=== PATIENT | male | born 1985 | race African-American/Black ===

== ENCOUNTER 2017-03-18 19:53 | Emergency (ER) | payer OTHER ==
[2017-03-18 20:21] VITALS: BP 185/118; PULSE 77; RESP 16; TEMP 98.8
--- NOTE | 2017-03-18 20:38 | ED ---
Skin/Abscess/FB HPI - General Chief complaint: Skin/Abscess/Foreign Body Stated complaint: skin problems/shoulder Time Seen by Provider: 03/18/17 20:24 Source: patient, RN notes reviewed Mode of arrival: ambulatory Limitations: no limitations - History of Present Illness Initial comments: 31-year-old male presents emergency Department chief complaint rash. Patient has this rash on and off for a while. Patient states he usually uses Selsun Blue. Patient states that it does go away when he uses it. Patient also states that he does not have blood pressure medication which normally takes blood pressure medication. Patient states she's been off for last few months. Denies any chest pain, shortness breath, headache, dizziness. - Related Data Home Medications Medication Instructions Recorded Confirmed Gabapentin [Neurontin] 100 mg PO BID 04/25/16 03/18/17 Previous Rx's Medication Instructions Recorded amLODIPine [Norvasc] 5 mg PO DAILY #14 tab 03/18/17 Allergies Allergy/AdvReac Type Severity Reaction Status Date / Time carbamazepine [From Tegretol] Allergy Unknown Verified 03/18/17 20:21 Review of Systems ROS Statement: Those systems with pertinent positive or pertinent negative responses have been documented in the HPI. ROS Other: All systems not noted in ROS Statement are negative. Past Medical History Past Medical History: Hypertension Additional Past Medical History / Comment(s): occipital neuralgia History of Any Multi-Drug Resistant Organisms: None Reported, MRSA Date of last positivie culture/infection: 2012 MDRO Source:: left leg Past Surgical History: No Surgical Hx Reported Additional Past Surgical History / Comment(s): polyps removed during colonoscopy Past Psychological History: Anxiety, PTSD Smoking Status: Never smoker Past Alcohol Use History: None Reported Past Drug Use History: Marijuana General Exam Limitations: no limitations General appearance: alert, in no apparent distress Respiratory exam: Present: normal lung sounds bilaterally. Absent: respiratory distress, wheezes, rales, rhonchi, stridor Cardiovascular Exam: Present: regular rate, normal rhythm, normal heart sounds. Absent: systolic murmur, diastolic murmur, rubs, gallop, clicks Neurological exam: Present: alert, oriented X3, CN II-XII intact Skin exam: Present: rash (Rash noted up on the neck, upper back chest region that is patch-like, discoloration) Course Vital Signs 03/18/17 20:16 Temperature 98.8 F Pulse Rate 77 Respiratory 16 Rate Blood Pressure 185/118 O2 Sat by Pulse 98 Oximetry Medical Decision Making - Medical Decision Making 31-year-old male presented for rash. Patient has tinea versicolor patient was started on Selsun Blue. Patient will be also prescribed Norvasc for his blood pressure. Disposition Clinical Impression: Tinea versicolor, Uncontrolled hypertension Disposition: HOME SELF-CARE Condition: Stable Instructions: Tinea Versicolor (ED) Additional Instructions: Follow-up with primary care physician as directed.Please return to the Emergency Department if symptoms worsen or any other concerns. Prescriptions: amLODIPine [Norvasc] 5 mg PO DAILY #14 tab Referrals: Shiv Sims MD [Primary Care Provider] - 1-2 days Time of Disposition: 20:37
== END 2017-03-18 20:44 | disposition home or self-care (01) ==
LOC: EC 19:53
DX: B36.0 Pityriasis versicolor (principal); I10 Essential (primary) hypertension; Z79.899 Other long term (current) drug therapy; Z88.8 Allergy status to other drugs, medicaments and biological substances; Z86.69 Personal history of other diseases of the nervous system and sense organs
CPT/HCPCS: 99282

== ENCOUNTER 2017-05-21 15:26 | Emergency (ER) | payer OTHER ==
[2017-05-21 15:39] VITALS: TEMP 98.7
[2017-05-21] MEDS ORDERED: METOCLOPRAMIDE 5 MG/ML 2 ML VIAL IVP STA (15:54)
[2017-05-21] MEDS ORDERED: diphenhydrAMINE 50 MG/ML 1 ML VIAL IVP STA (15:54)
[2017-05-21] MEDS ORDERED: GABAPENTIN 100 MG CAP PO STA (15:54)
[2017-05-21] MEDS ORDERED: DEXAMETHASONE SOD PHOSPHATE 10 MG/ML 1 ML VIAL IV STA (15:54)
[2017-05-21] MEDS ORDERED: KETOROLAC 30 MG/ML 1 ML VIAL IVP STA (15:54)
[2017-05-21] MEDS ORDERED: amLODIPine 5 MG TAB PO STA (15:54)
--- NOTE | 2017-05-21 16:01 | ED ---
General Adult HPI - General Chief complaint: Seizure Stated complaint: Seizure Time Seen by Provider: 05/21/17 15:42 Source: patient Mode of arrival: ambulatory Limitations: no limitations - History of Present Illness Initial comments: Patient is a 31-year-old male who presents with a chief complaint of headache, the report of seizure earlier today. Patient states that he walked to the emergency department today. Patient states he has a seizure disorder along with a history of migraine headaches. Patient states that earlier today he became shaky. Patient states that he remembers the entire event. Patient admits that he has been out of his medications specifically Norvasc, and Neurontin for 1 week's time. Patient is currently transitioning between doctors. He has not been able to get his prescriptions refilled. Patient states that his headache feels her normal migraine. He describes it as right- sided, sensitive to light and sound, with ringing in his right ear. Patient has no other complaints at this time. MD Complaint: Headache Onset/Timin -: days(s) Location: head Radiation: non-radiation Quality: aching Consistency: constant Improves with: none Worsens with: none Associated Symptoms: seizure Treatments Prior to Arrival: none - Related Data Home Medications Medication Instructions Recorded Confirmed Gabapentin [Neurontin] 100 mg PO TID 04/25/16 05/21/17 diphenhydrAMINE HCL [Benadryl] 25 mg PO DAILY PRN 05/21/17 05/21/17 Previous Rx's Medication Instructions Recorded amLODIPine [Norvasc] 5 mg PO DAILY #14 tab 03/18/17 Gabapentin [Neurontin] 100 mg PO TID #45 capsule 05/21/17 amLODIPine BESYLATE [Norvasc] 5 mg PO DAILY #15 tablet 05/21/17 Allergies Allergy/AdvReac Type Severity Reaction Status Date / Time caffeine AdvReac MAKES Verified 05/21/17 15:50 SEIZURES MORE SEVERE carbamazepine [From Tegretol] AdvReac MAKES Verified 05/21/17 15:50 SEIZURES MORE SEVERE Review of Systems ROS Statement: Those systems with pertinent positive or pertinent negative responses have been documented in the HPI. ROS Other: All systems not noted in ROS Statement are negative. Constitutional: Denies: fever, chills Eyes: Denies: vision change ENT: Denies: ear pain, throat pain Respiratory: Denies: cough Cardiovascular: Denies: chest pain Endocrine: Denies: fatigue Gastrointestinal: Denies: abdominal pain, nausea, vomiting Genitourinary: Denies: dysuria Musculoskeletal: Denies: back pain Skin: Denies: rash Neurological: Reports: headache Past Medical History Past Medical History: Hypertension, Seizure Disorder Additional Past Medical History / Comment(s): occipital neuralgia History of Any Multi-Drug Resistant Organisms: None Reported, MRSA Date of last positivie culture/infection: 2012 MDRO Source:: left leg Past Surgical History: No Surgical Hx Reported Additional Past Surgical History / Comment(s): polyps removed during colonoscopy Past Psychological History: Anxiety, PTSD Smoking Status: Never smoker Past Alcohol Use History: None Reported Past Drug Use History: Marijuana General Exam Limitations: no limitations General appearance: alert, in no apparent distress Head exam: Present: atraumatic, normocephalic Eye exam: Present: normal appearance, PERRL ENT exam: Present: normal exam, normal oropharynx, mucous membranes moist Neck exam: Present: normal inspection. Absent: tenderness Respiratory exam: Present: normal lung sounds bilaterally. Absent: respiratory distress Cardiovascular Exam: Present: regular rate, normal rhythm, normal heart sounds GI/Abdominal exam: Present: soft. Absent: distended, tenderness Rectal exam: Present: deferred Extremities exam: Present: normal inspection Back exam: Present: normal inspection Neurological exam: Present: alert, oriented X3, normal gait Psychiatric exam: Present: normal affect, normal mood Skin exam: Present: warm, dry, intact Course Vital Signs 05/21/17 15:33 Temperature 98.7 F Pulse Rate 93 Respiratory 15 Rate Blood Pressure 184/114 O2 Sat by Pulse 97 Oximetry Medical Decision Making - Medical Decision Making Patient presents with a chief complaint of migraine headache, and seizure. History and physical exam is suspect for actual seizures patient remembers the entire event, and states that he only had shaking. Patient states he is out of his Neurontin, and Norvasc. On initial evaluation, patient's hypertensive otherwise vital signs are stable. Neurologically there is no focal deficit. Patient is able to ambulate well without assistance. Patient was given his home dose of Neurontin, and amlodipine. Patient will be given headache cocktail and IV fluids. 5:26 PM Patient remained stable in the emergency department. There is no seizure activity noted. Patient states that his headache is better. At this point, patient is stable for discharge. He was written prescriptions for his regular dose Norvasc, and gabapentin. Patient can follow up with primary care and is already scheduled appointment next week. Disposition Clinical Impression: Migraine Disposition: HOME SELF-CARE Condition: Good Prescriptions: amLODIPine BESYLATE [Norvasc] 5 mg PO DAILY #15 tablet Gabapentin [Neurontin] 100 mg PO TID #45 capsule Referrals: Torsten Lyle DO [Primary Care Provider] - 1-2 days
[2017-05-21 17:58] VITALS: BP 160/105; PULSE 60; RESP 16
== END 2017-05-21 18:24 | disposition home or self-care (01) ==
LOC: EC 15:26
DX: G43.909 Migraine, unspecified, not intractable, without status migrainosus (principal); G40.909 Epilepsy, unspecified, not intractable, without status epilepticus; F41.9 Anxiety disorder, unspecified; Z86.14 Personal history of Methicillin resistant Staphylococcus aureus infection; Z79.899 Other long term (current) drug therapy; Z88.8 Allergy status to other drugs, medicaments and biological substances
CPT/HCPCS: 99283; 96374; 96375 ×3; J1200; J1100; J2765; J1885

== ENCOUNTER 2017-06-01 17:09 | Emergency (ER) | payer OTHER ==
[2017-06-01] MEDS ORDERED: SODIUM CHLORIDE 0.9% 1,000 ML IV STA (19:31)
--- NOTE | 2017-06-01 20:08 | ED ---
General Adult HPI - General Source: patient, RN notes reviewed, old records reviewed Mode of arrival: wheelchair <Nallely Sampson - Last Filed: 06/01/17 20:05> <Ryne Del Valle - Last Filed: 06/01/17 20:19> - General Chief complaint: Seizure Stated complaint: seizure Time Seen by Provider: 06/01/17 19:24 - History of Present Illness Initial comments: Physical 31-year-old male presenting to the emergency Department chief complaint of headache and questionable seizure-like activity. Patient reports that he has been taking his medications as prescribed. Patient reports that he had no tonic clonic episodes. He reports that he had no loss of consciousness or falls or hitting his head. He states that he noted that his blood pressure was a little bit elevated he still his blood pressure medicines earlier today. Patient states that he has had no fever or chills, chest pain, shortness of breath or any other symptoms. Patient states that his headache is a 6 out of 10. Patient states that he did walk here to the emergency department. ( Nallely Sampson) - Related Data Previous Rx's Medication Instructions Recorded Gabapentin [Neurontin] 100 mg PO TID #45 capsule 05/21/17 amLODIPine BESYLATE [Norvasc] 5 mg PO DAILY #15 tablet 05/21/17 Allergies Allergy/AdvReac Type Severity Reaction Status Date / Time caffeine AdvReac MAKES Verified 06/01/17 17:39 SEIZURES MORE SEVERE carbamazepine [From Tegretol] AdvReac MAKES Verified 06/01/17 17:39 SEIZURES MORE SEVERE Review of Systems ROS Other: All systems not noted in ROS Statement are negative. <Nallely Sampson - Last Filed: 06/01/17 20:05> ROS Other: All systems not noted in ROS Statement are negative. <Ryne Del Valle - Last Filed: 06/01/17 20:19> ROS Statement: Those systems with pertinent positive or pertinent negative responses have been documented in the HPI. Past Medical History Past Medical History: Hypertension, Seizure Disorder Additional Past Medical History / Comment(s): occipital neuralgia History of Any Multi-Drug Resistant Organisms: None Reported, MRSA Date of last positivie culture/infection: 2012 MDRO Source:: left leg Past Surgical History: No Surgical Hx Reported Additional Past Surgical History / Comment(s): polyps removed during colonoscopy Past Psychological History: Anxiety, PTSD Smoking Status: Never smoker Past Alcohol Use History: None Reported Past Drug Use History: Marijuana <Nallely Sampson - Last Filed: 06/01/17 20:05> General Exam General appearance: alert, in no apparent distress Head exam: Present: atraumatic, normocephalic, normal inspection Eye exam: Present: normal appearance, PERRL, EOMI. Absent: scleral icterus, conjunctival injection, periorbital swelling ENT exam: Present: normal exam, mucous membranes moist Neck exam: Present: normal inspection. Absent: tenderness, meningismus, lymphadenopathy Respiratory exam: Present: normal lung sounds bilaterally. Absent: respiratory distress, wheezes, rales, rhonchi, stridor Cardiovascular Exam: Present: regular rate, normal rhythm, normal heart sounds. Absent: systolic murmur, diastolic murmur, rubs, gallop, clicks GI/Abdominal exam: Present: soft, normal bowel sounds. Absent: distended, tenderness, guarding, rebound, rigid Extremities exam: Present: normal inspection, full ROM, normal capillary refill. Absent: tenderness, pedal edema, joint swelling, calf tenderness Back exam: Present: normal inspection, full ROM Neurological exam: Present: alert, oriented X3, CN II-XII intact Psychiatric exam: Present: normal affect, normal mood Skin exam: Present: warm, dry, intact, normal color. Absent: rash <Nallely Sampson - Last Filed: 06/01/17 20:05> <Ryne Del Valle - Last Filed: 06/01/17 20:19> - General Exam Comments Initial Comments: Well-appearing 31-year-old male. Patient is on appear to be in any acute distress. (Nallely Sampson) Medical Decision Making <Nallely Sampson - Last Filed: 06/01/17 20:05> <Ryne Del Valle - Last Filed: 06/01/17 20:19> - Medical Decision Making 31-year-old male chief complaint of concern of seizure-like activity headache. Patient has no history of tonic episodes or loss of consciousness or any falls or head injury. Patient does not appear postictal at this time. He did walk here to the emergency department. Patient was given IV fluids, Reglan, Toradol , Benadryl and Norflex for her headache. At 8:07 PM patient's case will be transferred to Dr. Del Valle. (Nallely Sampson) 8:17 PM I assumed care of this patient from Nallely Sampson. On examination of the patient, he states that he does not want the same medications that he was given last time when he was seen by myself and states he does not want to go to sleep today. I saw this patient about 2 weeks ago with an identical presentation. Patient states he would like to just try Toradol, and Tylenol. On evaluation, the patient has no neurological deficits. He is speaking in full sentences. Patient states he still has medications which were filled on last ER presentation. Patient still has a follow-up appointment with neurology. Patient will be given Toradol, Tylenol. Patient is stable for discharge at this time. (Ryne Del Valle) Disposition <Nallely Sampson - Last Filed: 06/01/17 20:05> <Ryne Del Valle - Last Filed: 06/01/17 20:19> Clinical Impression: Headache, Episode of shaking Disposition: HOME SELF-CARE Condition: Good Instructions: Recurrent Seizures in Adults (ED), Migraine Headache (ED) Referrals: Torsten Lyle DO [Primary Care Provider] - 1-2 days
[2017-06-01] MEDS: diphenhydrAMINE 50 MG/ML 1 ML VIAL IVP STA ×2 (20:19→20:23)
[2017-06-01] MEDS: KETOROLAC 30 MG/ML 1 ML VIAL IVP STA ×2 (20:19→20:23)
[2017-06-01] MEDS: ORPHENADRINE 30 MG/ML 2 ML VIAL IVP STA ×2 (20:19→20:24)
[2017-06-01] MEDS: METOCLOPRAMIDE 5 MG/ML 2 ML VIAL IVP STA ×2 (20:19→20:24)
[2017-06-01] MEDS ORDERED: ACETAMINOPHEN TAB 325 MG TAB PO STA (20:20)
[2017-06-01] MEDS ORDERED: KETOROLAC 60 MG/2 ML VIAL IM STA (20:20)
[2017-06-01 20:42] VITALS: BP 101/56; PULSE 68; RESP 16; TEMP 97.9
== END 2017-06-01 20:41 | disposition home or self-care (01) ==
LOC: EC 17:09
DX: R51 Headache (principal); R25.1 Tremor, unspecified; I10 Essential (primary) hypertension; Z88.8 Allergy status to other drugs, medicaments and biological substances; Z53.20 Procedure and treatment not carried out because of patient's decision for unspecified reasons; Z79.899 Other long term (current) drug therapy
CPT/HCPCS: 99284; 96372; J1885

== ENCOUNTER 2017-06-08 19:44 | Emergency (ER) | payer OTHER ==
[2017-06-08] MEDS ORDERED: ORPHENADRINE 30 MG/ML 2 ML VIAL IM STA (20:14)
[2017-06-08] MEDS ORDERED: KETOROLAC 60 MG/2 ML VIAL IM STA (20:14)
--- NOTE | 2017-06-08 20:19 | ED ---
General Adult HPI - General Chief complaint: Back Pain/Injury Stated complaint: back pain Time Seen by Provider: 06/08/17 19:45 Source: patient, EMS, RN notes reviewed Mode of arrival: EMS Limitations: no limitations - History of Present Illness Initial comments: This is a 31-year-old male who presents emergency Department stating he has some lower back pain. Patient states he had 2 seizures in the last week and since then his lower back is been a little bit strange especially with movement. Patient states she has no weakness or numbness. Patient states he has no urinary incontinence or urinary retention. Patient states his back hurts when he tries to bend or twist. Patient denies any blunt trauma or injury to the lower back. Patient states she has not taken anything for pain not even Motrin or Tylenol. - Related Data Previous Rx's Medication Instructions Recorded Gabapentin [Neurontin] 100 mg PO TID #45 capsule 05/21/17 amLODIPine BESYLATE [Norvasc] 5 mg PO DAILY #15 tablet 05/21/17 Cyclobenzaprine [Flexeril] 10 mg PO TID #20 tab 06/08/17 Ibuprofen [Motrin] 600 mg PO Q6HR PRN #20 tab 06/08/17 Allergies Allergy/AdvReac Type Severity Reaction Status Date / Time caffeine AdvReac MAKES Verified 06/08/17 20:03 SEIZURES MORE SEVERE carbamazepine [From Tegretol] AdvReac MAKES Verified 06/08/17 20:03 SEIZURES MORE SEVERE Review of Systems ROS Statement: Those systems with pertinent positive or pertinent negative responses have been documented in the HPI. ROS Other: All systems not noted in ROS Statement are negative. Past Medical History Past Medical History: Hypertension, Seizure Disorder Additional Past Medical History / Comment(s): occipital neuralgia History of Any Multi-Drug Resistant Organisms: None Reported, MRSA Date of last positivie culture/infection: 2012 MDRO Source:: left leg Past Surgical History: No Surgical Hx Reported Additional Past Surgical History / Comment(s): polyps removed during colonoscopy Past Psychological History: Anxiety, PTSD Smoking Status: Never smoker Past Alcohol Use History: None Reported Past Drug Use History: Marijuana General Exam - General Exam Comments Initial Comments: GENERAL: Patient is well-developed and well-nourished. Patient is nontoxic and well- hydrated and is in mild distress. ENT: Neck is soft and supple. Moist mucous membranes. Neck has full range of motion without eliciting any pain. EYES: The sclera were anicteric and conjunctiva were pink and moist. Extraocular movements were intact and pupils were equal round and reactive to light. Eyelids were unremarkable. SKIN: Skin is clear with no lesions or rashes and otherwise unremarkable. NEUROLOGIC: Patient is alert and oriented x3. Cranial nerves II through XII are grossly intact. Motor and sensory are also intact. Normal speech, volume and content. Symmetrical smile. MUSCULOSKELETAL: Normal extremities with adequate strength and full range of motion. No lower extremity swelling or edema. No calf tenderness. Straight leg test is negative bilaterally PSYCHIATRIC: Normal psychiatric evaluation. Limitations: no limitations Course Vital Signs 06/08/17 19:45 Temperature 98.9 F Pulse Rate 72 Respiratory 18 Rate Blood Pressure 160/103 O2 Sat by Pulse 98 Oximetry Disposition Clinical Impression: Strain of lumbar region Disposition: HOME SELF-CARE Condition: Good Instructions: Acute Low Back Pain (ED) Prescriptions: Cyclobenzaprine [Flexeril] 10 mg PO TID #20 tab Ibuprofen [Motrin] 600 mg PO Q6HR PRN #20 tab PRN Reason: For pain Referrals: Shiv Sims MD [Primary Care Provider] - 1-2 days Time of Disposition: 20:18
[2017-06-08 20:41] VITALS: BP 150/83; PULSE 78; RESP 17; TEMP 96.9
== END 2017-06-08 20:41 | disposition home or self-care (01) ==
LOC: EC 19:44
DX: S39.012A Strain of muscle, fascia and tendon of lower back, initial encounter (principal); X58.XXXA Exposure to other specified factors, initial encounter; M54.81 Occipital neuralgia; G40.909 Epilepsy, unspecified, not intractable, without status epilepticus; I10 Essential (primary) hypertension; Z86.14 Personal history of Methicillin resistant Staphylococcus aureus infection; Z79.899 Other long term (current) drug therapy; Z91.09 Other allergy status, other than to drugs and biological substances; Z88.8 Allergy status to other drugs, medicaments and biological substances
CPT/HCPCS: 96372; 99284; J2360; J1885

== ENCOUNTER 2017-11-23 08:49 | Emergency (ER) | payer OTHER ==
[2017-11-23 08:56] VITALS: TEMP 98.4
[2017-11-23] MEDS ORDERED: amLODIPine 5 MG TAB PO STA (09:02)
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
[2017-11-23] MEDS ORDERED: cloNIDine HCL 0.2 MG TAB PO STA (09:52)
[2017-11-23] MEDS ORDERED: cloNIDine HCL 0.1 MG TAB PO STA (10:38)
[2017-11-23 10:39] VITALS: RESP 18
[2017-11-23 11:11] VITALS: BP 135/92; PULSE 74
== END 2017-11-23 11:35 | disposition home or self-care (01) ==
LOC: EC 08:49
DX: S09.90XA Unspecified injury of head, initial encounter (principal); I10 Essential (primary) hypertension; Z79.899 Other long term (current) drug therapy; Z88.8 Allergy status to other drugs, medicaments and biological substances; Z91.048 Other nonmedicinal substance allergy status; Z86.14 Personal history of Methicillin resistant Staphylococcus aureus infection; Y04.0XXA Assault by unarmed brawl or fight, initial encounter
CPT/HCPCS: 70450; 99284

== ENCOUNTER 2018-08-18 20:17 | Emergency (ER) | payer OTHER ==
[2018-08-18] MEDS ORDERED: diphenhydrAMINE 50 MG/ML 1 ML VIAL IVP STA (22:35)
[2018-08-18] MEDS ORDERED: KETOROLAC 30 MG/ML 1 ML VIAL IVP STA (22:35)
[2018-08-18] MEDS ORDERED: SODIUM CHLORIDE 0.9% 1,000 ML IV ONE (22:35)
[2018-08-18] MEDS ORDERED: cloNIDine HCL 0.1 MG TAB PO STA (22:35)
[2018-08-18] MEDS ORDERED: METOCLOPRAMIDE 5 MG/ML 2 ML VIAL IVP STA (22:35)
[2018-08-18 22:59] LABS: Basophils % (A) 0 %; Eosinophils # (A) 0.1 k/uL (0-0.7); Eosinophils % (A) 2 %; HGB 15.5 gm/dL (13.0-17.5); Lymphocytes # (A) 2.1 k/uL (1.0-4.8); Lymphocytes % (A) 42 %; MCH 27.4 pg (25.0-35.0); MCHC 33.7 g/dL (31.0-37.0); MCV 81.3 fL (80.0-100.0); Mean Platelet Volume 8.2; Monocytes # (A) 0.4 k/uL (0-1.0); Monocytes % (A) 8 %; Neutrophils # (A) 2.2 k/uL (1.3-7.7); Neutrophils % (A) 46 %; Platelet Count 182 k/uL (150-450); RBC 5.66 m/uL (4.30-5.90); RDW 13.9 % (11.5-15.5); WBC 4.9 k/uL (3.8-10.6)
[2018-08-18 23:14] LABS: ALT 28 U/L (21-72); AST 22 U/L (17-59); Albumin 4.9 g/dL (3.5-5.0); Alkaline Phosphatase 60 U/L (38-126); Anion Gap 10 mmol/L; Blood Urea Nitrogen 14 mg/dL (9-20); Calcium 9.9 mg/dL (8.4-10.2); Carbon Dioxide 23 mmol/L (22-30); Chloride 105 mmol/L (98-107); Glucose 103 mg/dL (74-99); Sodium 138 mmol/L (137-145); Total Protein 8.1 g/dL (6.3-8.2)
--- NOTE | 2018-08-19 00:08 | ED ---
General Adult HPI - General Chief complaint: Headache Stated complaint: high blood pressure, seizure a couple days ago Time Seen by Provider: 08/18/18 22:06 Source: patient, family Mode of arrival: ambulatory Limitations: no limitations - History of Present Illness Initial comments: 33-year-old male patient presents to the emergency department today with chief complaint of elevated blood pressure and posterior headache. Patient does have past medical history significant for hypertension, epilepsy, and occipital neuralgia. Patient states that he does take amlodipine, Imdur, and propranolol for blood pressure. States that he has been having elevated blood pressures and does have an appointment this week with his primary care physician to discuss management of this. Patient states that he developed a headache today in addition to weakness in his ankles and some tingling to the distal tips of his fingers. He denies any blurred or double vision. States that he does have light sensitivity but denies any sound sensitivity. Denies any nausea, vomiting , fever, chills, numbness, or unilateral weakness. Patient denies any recent rash, fever, chills, shortness breath, chest pain, abdominal pain, diarrhea, constipation, back pain, hematuria, dysuria, urinary urgency, urinary frequency , or any other complaints. - Related Data Home Medications Medication Instructions Recorded Confirmed Propranolol HCl 60 mg PO BID 11/23/17 08/18/18 Topiramate [Topamax] 100 mg PO BID 11/23/17 08/18/18 Ibuprofen [Motrin] 600 mg PO Q6H PRN 08/18/18 08/18/18 amLODIPine [Norvasc] 10 mg PO DAILY 08/18/18 08/18/18 Previous Rx's Medication Instructions Recorded Gabapentin [Neurontin] 100 mg PO TID #45 capsule 05/21/17 Allergies Allergy/AdvReac Type Severity Reaction Status Date / Time caffeine AdvReac MAKES Verified 08/18/18 22:28 SEIZURES MORE SEVERE carbamazepine [From Tegretol] AdvReac MAKES Verified 08/18/18 22:28 SEIZURES MORE SEVERE Review of Systems ROS Statement: Those systems with pertinent positive or pertinent negative responses have been documented in the HPI. ROS Other: All systems not noted in ROS Statement are negative. Past Medical History Past Medical History: Hypertension, Seizure Disorder Additional Past Medical History / Comment(s): occipital neuralgia History of Any Multi-Drug Resistant Organisms: None Reported, MRSA Date of last positivie culture/infection: 2012 MDRO Source:: left leg Past Surgical History: No Surgical Hx Reported Additional Past Surgical History / Comment(s): polyps removed during colonoscopy Past Psychological History: Anxiety, Depression, PTSD, Schizophrenia Smoking Status: Never smoker Past Alcohol Use History: Occasional Past Drug Use History: Marijuana General Exam Limitations: no limitations General appearance: alert, in no apparent distress, other (This is a well- developed, well-nourished adult male patient in no acute distress. Vital signs upon presentation are temperature 98.2F, pulse 79, respirations 20, blood pressure 180/127, pulse ox 97% on room air.) Eye exam: Present: normal appearance, PERRL, EOMI. Absent: scleral icterus, conjunctival injection, nystagmus, periorbital swelling ENT exam: Present: normal exam, normal oropharynx, mucous membranes moist Neck exam: Present: normal inspection. Absent: tenderness, meningismus, lymphadenopathy Respiratory exam: Present: normal lung sounds bilaterally. Absent: respiratory distress, wheezes, rales, rhonchi, stridor Cardiovascular Exam: Present: regular rate, normal rhythm, normal heart sounds. Absent: systolic murmur, diastolic murmur, rubs, gallop, clicks GI/Abdominal exam: Present: soft, normal bowel sounds. Absent: distended, tenderness, guarding, rebound, rigid Neurological exam: Present: alert, oriented X3, CN II-XII intact, other ( Strength in all 4 extremities is 5/5.) Psychiatric exam: Present: normal affect, normal mood Skin exam: Present: warm, dry, intact, normal color. Absent: rash Course Vital Signs 08/18/18 08/18/18 08/18/18 21:24 22:30 23:00 Temperature 98.2 F Pulse Rate 79 Respiratory 20 Rate Blood Pressure 180/127 174/141 173/127 O2 Sat by Pulse 97 97 97 Oximetry 08/18/18 08/19/18 08/19/18 23:45 00:30 00:46 Temperature 98.3 F Pulse Rate 70 Respiratory 18 Rate Blood Pressure 133/90 130/83 127/87 O2 Sat by Pulse 98 Oximetry Medical Decision Making - Medical Decision Making 33-year-old male patient with past medical history significant for hypertension , occipital neuralgia, and epilepsy presents to the emergency department today for complaints of headache and elevated blood pressure. Physical examination was relatively unremarkable. Patient is neurologically intact with no focal deficits. Labs reviewed and are unremarkable. Patient was given clonidine here in the emergency department for blood pressure, blood pressure did improve to 130s over 90s. Patient was given medication for headache. Upon reevaluation he states he is feeling better. He will call for a right home. He does have an appointment coming up this week with his primary care physician to discuss management of his blood pressure medications. He is urged to keep this appointment with his doctor. Return parameters were discussed in detail. He verbalizes understanding and agrees with this plan. - Lab Data Result diagrams: 08/18/18 22:34 08/18/18 22:34 Lab Results 08/18/18 08/18/18 Range/Units 22:34 22:34 WBC 4.9 (3.8-10.6) k/uL RBC 5.66 (4.30-5.90) m/uL Hgb 15.5 (13.0-17.5) gm/dL Hct 46.0 (39.0-53.0) % MCV 81.3 (80.0-100.0) fL MCH 27.4 (25.0-35.0) pg MCHC 33.7 (31.0-37.0) g/dL RDW 13.9 (11.5-15.5) % Plt Count 182 (150-450) k/uL Neutrophils % 46 % Lymphocytes % 42 % Monocytes % 8 % Eosinophils % 2 % Basophils % 0 % Neutrophils # 2.2 (1.3-7.7) k/uL Lymphocytes # 2.1 (1.0-4.8) k/uL Monocytes # 0.4 (0-1.0) k/uL Eosinophils # 0.1 (0-0.7) k/uL Basophils # 0.0 (0-0.2) k/uL Sodium 138 (137-145) mmol/L Potassium 4.0 (3.5-5.1) mmol/L Chloride 105 (98-107) mmol/L Carbon Dioxide 23 (22-30) mmol/L Anion Gap 10 mmol/L BUN 14 (9-20) mg/dL Creatinine 1.00 (0.66-1.25) mg/dL Est GFR (CKD-EPI)AfAm >90 (>60 ml/min/1.73 sqM) Est GFR (CKD-EPI)NonAf >90 (>60 ml/min/1.73 sqM) Glucose 103 H (74-99) mg/dL Calcium 9.9 (8.4-10.2) mg/dL Total Bilirubin 1.0 (0.2-1.3) mg/dL AST 22 (17-59) U/L ALT 28 (21-72) U/L Alkaline Phosphatase 60 (38-126) U/L Total Protein 8.1 (6.3-8.2) g/dL Albumin 4.9 (3.5-5.0) g/dL Disposition Clinical Impression: Headache, Hypertension Disposition: HOME SELF-CARE Condition: Good Instructions: Acute Headache (ED), Hypertension (ED) Additional Instructions: Follow up with your primary care physician as you have planned to discuss management of your blood pressure. Return immediately for any new, worsening, or concerning symptoms. Is patient prescribed a controlled substance at d/c from ED?: No Referrals: [facility] [Primary Care Provider] - 1-2 days Time of Disposition: 00:08
[2018-08-19 00:55] VITALS: BP 127/87; PULSE 70; RESP 18; TEMP 98.3
== END 2018-08-19 00:55 | disposition home or self-care (01) ==
LOC: EC 20:17
DX: I10 Essential (primary) hypertension (principal); R51 Headache; R29.898 Other symptoms and signs involving the musculoskeletal system; R20.2 Paresthesia of skin; H53.149 Visual discomfort, unspecified; G40.909 Epilepsy, unspecified, not intractable, without status epilepticus; Z88.8 Allergy status to other drugs, medicaments and biological substances; Z79.899 Other long term (current) drug therapy; Z86.14 Personal history of Methicillin resistant Staphylococcus aureus infection
CPT/HCPCS: 36415; 80053; 85025; 99283; 96374; 96375 ×2; 96361; J1200; J2765; J1885

== ENCOUNTER 2018-09-13 18:29 | Emergency (ER) | payer OTHER ==
[2018-09-13 18:47] VITALS: TEMP 98.1
--- NOTE | 2018-09-13 19:00 | ED ---
General Adult HPI - General Source: patient, RN notes reviewed Mode of arrival: ambulatory Limitations: no limitations <Lupillo Lee - Last Filed: 09/13/18 18:59> <Pamela Ramirez - Last Filed: 09/13/18 23:29> - General Chief complaint: Psychiatric Symptoms Stated complaint: EPS eval Time Seen by Provider: 09/13/18 18:52 - History of Present Illness Initial comments: Patient is a pleasant 33-year-old male presenting to the emergency department for mental health evaluation. Patient presents with his girlfriend and her mother. Patient reportedly has been talking to himself or hours and then. Patient does admit to talking to himself however denies any hallucinations. Patient denies both auditory and visual hallucinations. Patient denies any suicidal thoughts however does admit to being somewhat depressed. No homicidal thoughts. Patient rarely uses alcohol, approximate one beer per week. Patient does use marijuana, otherwise no street drugs. (Lupillo Lee) - Related Data Home Medications Medication Instructions Recorded Confirmed Propranolol HCl 60 mg PO BID 11/23/17 09/13/18 Topiramate [Topamax] 100 mg PO BID 11/23/17 09/13/18 Ibuprofen [Motrin] 600 mg PO Q6H PRN 08/18/18 09/13/18 amLODIPine [Norvasc] 10 mg PO DAILY 08/18/18 09/13/18 Previous Rx's Medication Instructions Recorded Gabapentin [Neurontin] 100 mg PO TID #45 capsule 05/21/17 Allergies Allergy/AdvReac Type Severity Reaction Status Date / Time caffeine AdvReac MAKES Verified 09/13/18 19:49 SEIZURES MORE SEVERE carbamazepine [From Tegretol] AdvReac MAKES Verified 09/13/18 19:49 SEIZURES MORE SEVERE Review of Systems ROS Other: All systems not noted in ROS Statement are negative. Constitutional: Denies: fever Eyes: Denies: eye pain ENT: Denies: ear pain Respiratory: Denies: cough Cardiovascular: Denies: chest pain Endocrine: Denies: fatigue Gastrointestinal: Denies: abdominal pain Genitourinary: Denies: dysuria Musculoskeletal: Denies: back pain Skin: Denies: rash Neurological: Reports: headache (Occasional headaches, chronic and unchanged) Psychiatric: Reports: depression. Denies: auditory hallucinations, visual hallucinations, homicidal thoughts, suicidal thoughts <Lupillo Lee - Last Filed: 09/13/18 18:59> ROS Other: All systems not noted in ROS Statement are negative. <Pamela Ramirez - Last Filed: 09/13/18 23:29> ROS Statement: Those systems with pertinent positive or pertinent negative responses have been documented in the HPI. Past Medical History Past Medical History: Hypertension, Seizure Disorder Additional Past Medical History / Comment(s): occipital neuralgia History of Any Multi-Drug Resistant Organisms: None Reported, MRSA Date of last positivie culture/infection: 2012 MDRO Source:: left leg Past Surgical History: No Surgical Hx Reported Additional Past Surgical History / Comment(s): polyps removed during colonoscopy Past Psychological History: Anxiety, Bipolar, Depression, PTSD, Schizophrenia Smoking Status: Never smoker Past Alcohol Use History: Occasional Past Drug Use History: Marijuana <Lupillo Lee - Last Filed: 09/13/18 18:59> General Exam Limitations: no limitations General appearance: alert, in no apparent distress Head exam: Present: atraumatic Eye exam: Present: normal appearance Neck exam: Present: normal inspection Respiratory exam: Present: normal lung sounds bilaterally Cardiovascular Exam: Present: regular rate, normal rhythm GI/Abdominal exam: Present: soft. Absent: tenderness Extremities exam: Present: normal inspection Neurological exam: Present: alert Psychiatric exam: Present: flat affect Skin exam: Present: normal color <Lupillo Lee - Last Filed: 09/13/18 18:59> Vital Signs 09/13/18 09/13/18 18:40 19:32 Temperature 98.1 F Pulse Rate 74 Respiratory 18 16 Rate Blood Pressure 183/142 O2 Sat by Pulse 99 Oximetry Medical Decision Making <Lupillo Lee - Last Filed: 09/13/18 18:59> <Pamela Ramirez - Last Filed: 09/13/18 23:29> - Medical Decision Making Patient care signed out to me by Dr. Lee at 9pm, patient prented for a psychiatric evaluation, significnat other nad family concerned about the patient talking to himself. At the time of sign out patient was awaiting EPS evaluation. EPS nurse was able to evaluate the patient, set the patient up for a [facility] appointment tomorrow, patient and family are agreeable to plan for discharge home. (Pamela Ramirez) - Lab Data Lab Results 09/13/18 Range/Units 19:58 Urine Opiates Screen Not Detected (NotDetected) Ur Oxycodone Screen Not Detected (NotDetected) Urine Methadone Screen Not Detected (NotDetected) Ur Propoxyphene Screen Not Detected (NotDetected) Ur Barbiturates Screen Not Detected (NotDetected) U Tricyclic Antidepress Not Detected (NotDetected) Ur Phencyclidine Scrn Not Detected (NotDetected) Ur Amphetamines Screen Not Detected (NotDetected) U Methamphetamines Scrn Not Detected (NotDetected) U Benzodiazepines Scrn Not Detected (NotDetected) Urine Cocaine Screen Not Detected (NotDetected) U Marijuana (THC) Screen Detected H (NotDetected) Disposition <Lupillo Lee - Last Filed: 09/13/18 18:59> Is patient prescribed a controlled substance at d/c from ED?: No <Pamela Ramirez - Last Filed: 09/13/18 23:29> Clinical Impression: Depression Disposition: HOME SELF-CARE Condition: Good Instructions: Depression (ED) Referrals: [facility] [Primary Care Provider] - 1-2 days
[2018-09-13 19:33] VITALS: RESP 16
[2018-09-13 20:17] LABS: Amphetamine Screen,Urine Not Detected (NotDetected); Barbiturate Screen,Urine Not Detected (NotDetected); Benzodiazepines Screen,Urine Not Detected (NotDetected); Cocaine Screen,Urine Not Detected (NotDetected); Methadone Screen, Urine Not Detected (NotDetected); Opiate Screen,Urine Not Detected (NotDetected); Oxycodone Screen, Urine Not Detected (NotDetected); Phencyclidine Screen,Urine Not Detected (NotDetected); Tricyclic Antidepressant,Urine Not Detected (NotDetected); Urn Cannabinoid Scrn Detected (NotDetected)
[2018-09-13 23:31] VITALS: PULSE 75
[2018-09-13] MEDS ORDERED: cloNIDine HCL 0.1 MG TAB PO STA (23:33)
[2018-09-14] VITALS: BP 181/135
== END 2018-09-14 00:46 | disposition home or self-care (01) ==
LOC: EC 18:29
DX: F32.9 Major depressive disorder, single episode, unspecified (principal); I10 Essential (primary) hypertension; F41.9 Anxiety disorder, unspecified; G40.909 Epilepsy, unspecified, not intractable, without status epilepticus; Z79.899 Other long term (current) drug therapy; Z91.018 Allergy to other foods; Z88.8 Allergy status to other drugs, medicaments and biological substances
CPT/HCPCS: 80306; 82075; 99284

== ENCOUNTER 2018-09-19 08:38 | Emergency (ER) | payer OTHER ==
[2018-09-19 08:46] VITALS: BP 152/118; PULSE 98; RESP 18; TEMP 97.5
[2018-09-19] MEDS ORDERED: AZITHROMYCIN 250 MG TAB PO STA (08:47)
[2018-09-19] MEDS ORDERED: cefTRIAXone 250 MG VIAL IM STA (08:47)
--- NOTE | 2018-09-19 09:20 | ED ---
General Adult HPI - General Chief complaint: Urogenital Stated complaint: re-check Time Seen by Provider: 09/19/18 08:47 Source: patient, RN notes reviewed Mode of arrival: ambulatory Limitations: no limitations - History of Present Illness Initial comments: 33-year-old male presents emergency Department chief complaint of needing treatment for chlamydia. Patient states that his significant other tested positive for chlamydia. Patient is asymptomatic denies any dysuria, hematuria, penile discharge. Patient denies any recent fevers or chills. Patient offers no other complaints. - Related Data Home Medications Medication Instructions Recorded Confirmed Propranolol HCl 60 mg PO DAILY 11/23/17 09/19/18 Topiramate [Topamax] 100 mg PO TID 11/23/17 09/19/18 amLODIPine [Norvasc] 10 mg PO BID 08/18/18 09/19/18 Albuterol Inhaler [Ventolin Hfa 2 puff INHALATION RT-Q6H PRN 09/19/18 09/19/18 Inhaler] Previous Rx's Medication Instructions Recorded Gabapentin [Neurontin] 100 mg PO TID #45 capsule 05/21/17 Allergies Allergy/AdvReac Type Severity Reaction Status Date / Time caffeine AdvReac MAKES Verified 09/19/18 09:12 SEIZURES MORE SEVERE carbamazepine [From Tegretol] AdvReac MAKES Verified 09/19/18 09:12 SEIZURES MORE SEVERE Review of Systems ROS Statement: Those systems with pertinent positive or pertinent negative responses have been documented in the HPI. ROS Other: All systems not noted in ROS Statement are negative. Past Medical History Past Medical History: Hypertension, Seizure Disorder Additional Past Medical History / Comment(s): occipital neuralgia History of Any Multi-Drug Resistant Organisms: MRSA Date of last positivie culture/infection: 2012 MDRO Source:: left leg Past Surgical History: No Surgical Hx Reported Additional Past Surgical History / Comment(s): polyps removed during colonoscopy Past Psychological History: Anxiety, Bipolar, Depression, PTSD, Schizophrenia Smoking Status: Never smoker Past Alcohol Use History: None Reported Past Drug Use History: Marijuana General Exam Limitations: no limitations General appearance: alert, in no apparent distress Head exam: Present: atraumatic, normocephalic, normal inspection Eye exam: Present: normal appearance, PERRL, EOMI. Absent: scleral icterus, conjunctival injection, periorbital swelling Respiratory exam: Present: normal lung sounds bilaterally. Absent: respiratory distress, wheezes, rales, rhonchi, stridor Cardiovascular Exam: Present: regular rate, normal rhythm, normal heart sounds. Absent: systolic murmur, diastolic murmur, rubs, gallop, clicks GI/Abdominal exam: Present: soft, normal bowel sounds. Absent: distended, tenderness, guarding, rebound, rigid Course Vital Signs 09/19/18 08:43 Temperature 97.5 F L Pulse Rate 98 Respiratory 18 Rate Blood Pressure 152/118 O2 Sat by Pulse 99 Oximetry Medical Decision Making - Medical Decision Making 33-year-old male presented for STD treatment. Patient did have urine screening for gonorrhea and chlamydia. Patient was given treatment including Rocephin and azithromycin. Patient is noted to be hypertensive in the treatment and further management was referred to PCP. Disposition Clinical Impression: Screening for STD (sexually transmitted disease), Chlamydia contact Disposition: HOME SELF-CARE Condition: Stable Instructions: Chlamydia (ED), Sexually Transmitted Diseases (ED) Additional Instructions: Please return to the Emergency Department if symptoms worsen or any other concerns. Is patient prescribed a controlled substance at d/c from ED?: No Referrals: [facility] [Primary Care Provider] - 1-2 days Time of Disposition: 09:20
[2018-09-20 13:24] LABS: C. trachomatis,PCR Positive (Neg,Equiv); Chlamydia trachomatis Source Urine; N. gonorrhoeae,PCR Negative (Neg,Equiv); Neisseria Source Urine
== END 2018-09-19 09:26 | disposition home or self-care (01) ==
LOC: EC 08:38
DX: Z11.3 Encounter for screening for infections with a predominantly sexual mode of transmission (principal); Z11.8 Encounter for screening for other infectious and parasitic diseases; I10 Essential (primary) hypertension; G40.909 Epilepsy, unspecified, not intractable, without status epilepticus; Z86.14 Personal history of Methicillin resistant Staphylococcus aureus infection; Z79.899 Other long term (current) drug therapy; Z88.8 Allergy status to other drugs, medicaments and biological substances; Z91.018 Allergy to other foods
CPT/HCPCS: 87491; 87591; 99283; 96372; J0696

== ENCOUNTER 2018-09-20 18:05 | Emergency (ER) | payer OTHER ==
[2018-09-20] MEDS ORDERED: cloNIDine HCL 0.1 MG TAB PO STA ×2 (18:42→19:48)
[2018-09-20] MEDS ORDERED: KETOROLAC 30 MG/ML 1 ML VIAL IVP STA (18:44)
--- NOTE | 2018-09-20 19:19 | ED ---
Recheck HPI - General Chief Complaint: Recheck/Abnormal Lab/Rx Stated Complaint: HYPERTENSION Time Seen by Provider: 09/20/18 18:19 Source: patient, EMS Mode of arrival: EMS Limitations: no limitations - History of Present Illness Initial Comments: 33-year-old male patient sent in by the nurse practitioner at the [facility] for elevated blood pressure. Patient does take Norvasc and propranolol for blood pressure. States he has been taking his medications as directed. States that for the last two weeks right-sided headache with some blurred vision. States that the headache the headache does improve at times, but never completely resolves. He denies any weakness, numbness, or tingling to his extremities. He denies any chest pain or shortness of breath. Patient states he does have history of occipital neuralgia and headaches but this feels somewhat different. Denies this being the worst headache of his life. He denies any nausea or vomiting with this. Denies any light or sound sensitivity. Patient states he did have labs drawn at the office today, does not have the results of these yet. Patient denies any recent rash, fever, chills , abdominal pain, diarrhea, constipation, back pain, hematuria, dysuria, urinary urgency, urinary frequency, or any other complaints. - Related Data Home Medications Medication Instructions Recorded Confirmed Propranolol HCl 60 mg PO DAILY 11/23/17 09/20/18 Topiramate [Topamax] 100 mg PO TID 11/23/17 09/20/18 amLODIPine [Norvasc] 10 mg PO BID 08/18/18 09/20/18 Albuterol Inhaler [Ventolin Hfa 2 puff INHALATION RT-Q6H PRN 09/19/18 09/20/18 Inhaler] Previous Rx's Medication Instructions Recorded Gabapentin [Neurontin] 100 mg PO TID #45 capsule 05/21/17 Allergies Allergy/AdvReac Type Severity Reaction Status Date / Time caffeine AdvReac MAKES Verified 09/20/18 18:50 SEIZURES MORE SEVERE carbamazepine [From Tegretol] AdvReac MAKES Verified 09/20/18 18:50 SEIZURES MORE SEVERE Review of Systems ROS Statement: Those systems with pertinent positive or pertinent negative responses have been documented in the HPI. ROS Other: All systems not noted in ROS Statement are negative. Past Medical History Past Medical History: Hypertension, Seizure Disorder Additional Past Medical History / Comment(s): occipital neuralgia History of Any Multi-Drug Resistant Organisms: MRSA Date of last positivie culture/infection: 2012 MDRO Source:: left leg Past Surgical History: No Surgical Hx Reported Additional Past Surgical History / Comment(s): polyps removed during colonoscopy Past Psychological History: Anxiety, Bipolar, Depression, PTSD, Schizophrenia Smoking Status: Never smoker Past Alcohol Use History: None Reported Past Drug Use History: Marijuana General Exam Limitations: no limitations General appearance: alert, in no apparent distress, other (Physical well- developed, well-nourished adult male patient in no acute distress. Vital signs upon presentation are temperature 98.4F, pulse 75, respirations 18, blood pressure 178/129, pulse ox 97% on room air.) Eye exam: Present: normal appearance, PERRL, EOMI. Absent: scleral icterus, conjunctival injection, nystagmus, periorbital swelling Neck exam: Present: normal inspection. Absent: tenderness, meningismus, lymphadenopathy Respiratory exam: Present: normal lung sounds bilaterally. Absent: respiratory distress, wheezes, rales, rhonchi, stridor Cardiovascular Exam: Present: regular rate, normal rhythm, normal heart sounds. Absent: systolic murmur, diastolic murmur, rubs, gallop, clicks GI/Abdominal exam: Present: soft, normal bowel sounds. Absent: distended, tenderness, guarding, rebound, rigid Neurological exam: Present: alert, oriented X3, CN II-XII intact Expanded Speech: Present: fluid speech Cranial nerves: EOM's Intact: Normal, Nystagmus: Normal Motor strength exam: RUE: 5, LUE: 5, RLE: 5, LLE: 5 Psychiatric exam: Present: normal affect, normal mood Skin exam: Present: warm, dry, intact, normal color. Absent: rash Course Vital Signs 09/20/18 09/20/18 09/20/18 18:09 18:10 18:15 Temperature 98.4 F Pulse Rate 75 81 Respiratory 18 Rate Blood Pressure 178/129 178/129 O2 Sat by Pulse 97 97 96 Oximetry 09/20/18 09/20/18 09/20/18 18:30 18:45 19:00 Temperature Pulse Rate 89 87 90 Respiratory Rate Blood Pressure 163/115 179/122 174/133 O2 Sat by Pulse 100 99 92 L Oximetry 12/08/2809/20/18 09/20/18 19:15 19:30 19:45 Temperature Pulse Rate 80 77 81 Respiratory Rate Blood Pressure 152/115 163/109 155/117 O2 Sat by Pulse 97 97 97 Oximetry 09/20/18 09/20/18 09/20/18 20:00 20:15 20:30 Temperature Pulse Rate 71 84 75 Respiratory Rate Blood Pressure 151/115 150/109 144/103 O2 Sat by Pulse 96 98 95 Oximetry 09/20/18 21:10 Temperature 98.0 F Pulse Rate 73 Respiratory 19 Rate Blood Pressure 129/82 O2 Sat by Pulse 97 Oximetry Medical Decision Making - Medical Decision Making 33-year-old male patient presented to the emergency department today for complaints of right-sided headache and elevated blood pressure. Upon arrival patient's blood pressure was in 178/129. Physical examination is unremarkable. Patient is neurologically intact with no focal deficits. Patient does have history of hypertension and is treated with multiple medications for this. We did give clonidine here in the department, this did improve blood pressure into the 120s over 30s. He does report improvement of headache. He'll be discharged home at this time to follow-up with his primary care physician for further evaluation and blood pressure management. Return parameters were discussed in detail. He verbalizes understanding and agrees with this plan. Disposition Clinical Impression: Headache, Hypertension Disposition: HOME SELF-CARE Condition: Good Instructions: Acute Headache (ED), Hypertension (ED) Additional Instructions: Take medications as directed. Follow up with your primary care physician for recheck as soon as possible. Return immediately for any new, worsening, or concerning symptoms. Is patient prescribed a controlled substance at d/c from ED?: No Referrals: [facility] [Primary Care Provider] - 1-2 days Time of Disposition: 21:05
[2018-09-20 21:16] VITALS: BP 129/82; PULSE 73; RESP 19; TEMP 98
== END 2018-09-20 21:10 | disposition home or self-care (01) ==
LOC: EC 18:05
DX: I10 Essential (primary) hypertension (principal); R51 Headache; G40.909 Epilepsy, unspecified, not intractable, without status epilepticus; Z86.69 Personal history of other diseases of the nervous system and sense organs; Z86.14 Personal history of Methicillin resistant Staphylococcus aureus infection; Z79.899 Other long term (current) drug therapy; Z91.018 Allergy to other foods; Z88.8 Allergy status to other drugs, medicaments and biological substances
CPT/HCPCS: 99284; 96374; J1885

== ENCOUNTER 2018-10-22 16:16 | Emergency (ER) | payer OTHER ==
[2018-10-22] MEDS ORDERED: AZITHROMYCIN 500 MG TAB PO STA (16:20)
[2018-10-22] MEDS ORDERED: cefTRIAXone 250 MG VIAL IM STA (16:20)
[2018-10-22] MEDS ORDERED: metroNIDAZOLE 500 MG TAB PO STA (16:20)
[2018-10-22 16:35] VITALS: PULSE 81; RESP 18; TEMP 98
[2018-10-22] MEDS ORDERED: amLODIPine 10 MG TAB PO STA (17:34)
[2018-10-22 17:38] VITALS: BP 176/127
--- NOTE | 2018-10-22 17:40 | ED ---
General Adult HPI - General Chief complaint: Urogenital Stated complaint: STD Time Seen by Provider: 10/22/18 16:19 Source: patient, RN notes reviewed Mode of arrival: ambulatory Limitations: no limitations - History of Present Illness Initial comments: Patient's a 33-year-old male presented to the emergency room today with a chief complaint of possible STD. Patient significant other being treated here in the emergency room for chlamydia. Patient states that he would like to be treated. He states he is symptomatic. Denies any other complaints or symptoms. Patient denies any recent fever, chills, shortness of breath, chest pain, back pain, abdominal pain, constipation or diarrhea, headaches or visual changes, or any other complaints. - Related Data Home Medications Medication Instructions Recorded Confirmed Propranolol HCl 60 mg PO DAILY 11/23/17 09/20/18 Topiramate [Topamax] 100 mg PO TID 11/23/17 09/20/18 amLODIPine [Norvasc] 10 mg PO BID 08/18/18 09/20/18 Albuterol Inhaler [Ventolin Hfa 2 puff INHALATION RT-Q6H PRN 09/19/18 09/20/18 Inhaler] Previous Rx's Medication Instructions Recorded Gabapentin [Neurontin] 100 mg PO TID #45 capsule 05/21/17 Allergies Allergy/AdvReac Type Severity Reaction Status Date / Time caffeine AdvReac MAKES Verified 09/20/18 18:50 SEIZURES MORE SEVERE carbamazepine [From Tegretol] AdvReac MAKES Verified 09/20/18 18:50 SEIZURES MORE SEVERE Review of Systems ROS Statement: Those systems with pertinent positive or pertinent negative responses have been documented in the HPI. ROS Other: All systems not noted in ROS Statement are negative. Past Medical History Past Medical History: Hypertension, Seizure Disorder Additional Past Medical History / Comment(s): occipital neuralgia History of Any Multi-Drug Resistant Organisms: MRSA Date of last positivie culture/infection: 2012 MDRO Source:: left leg Past Surgical History: No Surgical Hx Reported Additional Past Surgical History / Comment(s): polyps removed during colonoscopy Past Psychological History: Anxiety, Bipolar, Depression, PTSD, Schizophrenia Smoking Status: Never smoker Past Alcohol Use History: None Reported Past Drug Use History: Marijuana General Exam - General Exam Comments Initial Comments: General: The patient is awake and alert, in no distress, and does not appear acutely ill. Eye: There is normal conjunctiva bilaterally. No signs of icterus. Ears, nose, mouth and throat: There are moist mucous membranes and no oral lesions. Neck: The neck is supple Musculoskeletal: Normal ROM, no tenderness. Neurological: A&O x 3. CN II-XII intact, There are no obvious motor or sensory deficits. Coordination appears grossly intact. Speech is normal. Skin: Skin is warm and dry and no rashes or lesions are noted. Psychiatric: Cooperative, appropriate mood & affect, normal judgment. Limitations: no limitations Course Vital Signs 10/22/18 16:30 Temperature 98.0 F Pulse Rate 81 Respiratory 18 Rate Blood Pressure 183/131 O2 Sat by Pulse 95 Oximetry Medical Decision Making - Medical Decision Making Patient's blood pressure was elevated at triage. Patient being seen for STD treatment due to significant other treating for chlamydia. Patient given doses of Rocephin, azithromycin, Flagyl here in the emergency room. Cultures pending. Patient is symptomatically otherwise. Blood pressure is elevated. He does admit that he has not been taking his amlodipine for a few days as he did not have the medication with him. He states he does have the medicine at home and available to him. He does plan on following up with his family doctor. Was discussed about having his blood pressure rechecked and the next 2 days. Patient given dose of amlodipine. He'll be discharged home as he states symptomatically otherwise. Advised close follow-up. Disposition Clinical Impression: Hypertension, Concern about STD in male without diagnosis Disposition: HOME SELF-CARE Condition: Good Instructions: Sexually Transmitted Diseases (ED) Additional Instructions: Please use medication as discussed. Please follow-up with family doctor in the next 2 days of symptoms have not improved. Please return to emergency room if the symptoms increase or worsen or for any other concerns. Is patient prescribed a controlled substance at d/c from ED?: No Referrals: [facility] [Primary Care Provider] - 1-2 days Time of Disposition: 17:42
[2018-10-23 14:13] LABS: C. trachomatis,PCR Negative (Neg,Equiv); Chlamydia trachomatis Source Urine
[2018-10-23 14:19] LABS: N. gonorrhoeae,PCR Negative (Neg,Equiv); Neisseria Source Urine
== END 2018-10-22 18:09 | disposition home or self-care (01) ==
LOC: EC 16:16
DX: I10 Essential (primary) hypertension (principal); Z71.1 Person with feared health complaint in whom no diagnosis is made; G40.909 Epilepsy, unspecified, not intractable, without status epilepticus; F41.9 Anxiety disorder, unspecified; Z79.899 Other long term (current) drug therapy; Z91.018 Allergy to other foods; Z88.8 Allergy status to other drugs, medicaments and biological substances
CPT/HCPCS: 87491; 87591; 99283; 96372; J0696

== ENCOUNTER 2018-11-26 18:28 | Emergency (ER) | payer OTHER ==
[2018-11-26 18:47] VITALS: TEMP 98
--- NOTE | 2018-11-26 19:11 | ED ---
Psych HPI - General Chief Complaint: Psychiatric Symptoms Stated Complaint: mental health Time Seen by Provider: 11/26/18 18:36 Source: patient, RN notes reviewed Mode of arrival: ambulatory Limitations: no limitations - History of Present Illness Initial Comments: 33-year-old male presents emergency Department with chief complaint of being homeless and right knee pain. Patient states he slipped on some ice on the right knee 2 days ago and was concerned about the pain. Patient also states that he is homeless and states these been staying at his girlfriend's mom's house reflux a while but states he just needs a place to stay. Patient denies being suicidal or homicidal. Patient denies any illicit drug use no alcohol abuse at this time. Patient states she does have coordinates for psychiatric care and states that he is being appointed guardian. - Related Data Home Medications Medication Instructions Recorded Confirmed amLODIPine [Norvasc] 10 mg PO DAILY 08/18/18 11/26/18 Cholecalciferol [Vitamin D3] 5,000 unit PO DAILY 11/26/18 11/26/18 Propranolol HCl [Propranolol HCl 160 mg PO BID 11/26/18 11/26/18 ER] Valsartan/Hydrochlorothiazide 1 tab PO DAILY 11/26/18 11/26/18 [Valsartan-Hctz 160-12.5 mg Tab] Allergies Allergy/AdvReac Type Severity Reaction Status Date / Time caffeine AdvReac MAKES Verified 11/26/18 18:47 SEIZURES MORE SEVERE carbamazepine [From Tegretol] AdvReac MAKES Verified 11/26/18 18:47 SEIZURES MORE SEVERE Review of Systems ROS Statement: Those systems with pertinent positive or pertinent negative responses have been documented in the HPI. ROS Other: All systems not noted in ROS Statement are negative. Past Medical History Past Medical History: Hypertension, Seizure Disorder Additional Past Medical History / Comment(s): occipital neuralgia History of Any Multi-Drug Resistant Organisms: MRSA Date of last positivie culture/infection: 2012 MDRO Source:: left leg Past Surgical History: No Surgical Hx Reported Additional Past Surgical History / Comment(s): polyps removed during colonoscopy Past Psychological History: Anxiety, Bipolar, Depression, PTSD, Schizophrenia Smoking Status: Never smoker Past Alcohol Use History: None Reported Past Drug Use History: Marijuana General Exam Limitations: no limitations General appearance: alert, in no apparent distress Head exam: Present: atraumatic, normocephalic, normal inspection Eye exam: Present: normal appearance, PERRL, EOMI. Absent: scleral icterus, conjunctival injection, periorbital swelling Neck exam: Present: normal inspection, full ROM. Absent: tenderness, meningismus, lymphadenopathy Respiratory exam: Present: normal lung sounds bilaterally. Absent: respiratory distress, wheezes, rales, rhonchi, stridor Cardiovascular Exam: Present: regular rate, normal rhythm, normal heart sounds. Absent: systolic murmur, diastolic murmur, rubs, gallop, clicks GI/Abdominal exam: Present: soft, normal bowel sounds. Absent: distended, tenderness, guarding, rebound, rigid Extremities exam: Present: other (Right knee full range of motion normal gait mild tenderness to lateral anterior portion above and below within normal limits ) Neurological exam: Present: alert, oriented X3, CN II-XII intact Psychiatric exam: Present: flat affect Skin exam: Present: warm, dry, intact, normal color. Absent: rash Course Vital Signs 11/26/18 18:35 Temperature 98 F Pulse Rate 80 Respiratory 16 Rate Blood Pressure 134/87 O2 Sat by Pulse 97 Oximetry Medical Decision Making - Medical Decision Making 33-year-old male presented for right knee pain, homelessness. Patient was evaluated by EPS the recommended patient be discharged fdc. Patient given ibuprofen for right knee contusion. Disposition Clinical Impression: Homelessness, Depression, Knee contusion Disposition: HOME SELF-CARE Condition: Stable Instructions (If sedation given, give patient instructions): Knee Pain (ED) Additional Instructions: Please return to the Emergency Department if symptoms worsen or any other concerns. Is patient prescribed a controlled substance at d/c from ED?: No Referrals: [facility] [Primary Care Provider] - 1-2 days Time of Disposition: 19:45
--- NOTE | 2018-11-26 19:36 | XR ---
Right knee 3 views. History pain. Comparison none. FINDINGS: I see no fracture nor dislocation. Joint spaces are normal. There is no sign of a knee joint effusion . IMPRESSION: Negative right knee exam.
[2018-11-26 20:59] VITALS: BP 126/85; PULSE 62; RESP 19
== END 2018-11-26 19:51 | disposition home or self-care (01) ==
LOC: EC 18:28
DX: S80.01XA Contusion of right knee, initial encounter (principal); F32.9 Major depressive disorder, single episode, unspecified; I10 Essential (primary) hypertension; Z86.14 Personal history of Methicillin resistant Staphylococcus aureus infection; Z59.0 Homelessness; Z79.899 Other long term (current) drug therapy; Z88.8 Allergy status to other drugs, medicaments and biological substances; Z91.018 Allergy to other foods; W00.0XXA Fall on same level due to ice and snow, initial encounter
CPT/HCPCS: 82075; 99284

== ENCOUNTER 2018-12-30 09:58 | Emergency (ER) | payer OTHER ==
[2018-12-30 10:16] VITALS: RESP 16
[2018-12-30] MEDS ORDERED: LIDOCAINE 1% INJ 10MG/ML (20 ML MDV) SQ ONE (10:44)
[2018-12-30] MEDS ORDERED: cloNIDine HCL 0.1 MG TAB PO STA (11:36)
[2018-12-30] MEDS ORDERED: IBUPROFEN 600 MG TAB PO STA (11:36)
--- NOTE | 2018-12-30 12:23 | ED ---
General Adult HPI - General Chief complaint: Skin/Abscess/Foreign Body Stated complaint: cyst on back of head Time Seen by Provider: 12/30/18 10:19 Source: patient, RN notes reviewed Mode of arrival: ambulatory Limitations: no limitations - History of Present Illness Initial comments: 33-year-old male presents to the emergency department for a chief complaint of "bump on neck" patient notices 2 days ago. Patient states it is painful. Patient denies any fevers or chills. Denies any cough congestion sore throat or ear pain. Patient denies any itchiness of scalp. Denies any midline neck pain. Denies any other complaints at this time. Patient has no other complaints at this time including shortness of breath, chest pain, abdominal pain, nausea or vomiting, headache, or visual changes. - Related Data Home Medications Medication Instructions Recorded Confirmed amLODIPine [Norvasc] 10 mg PO DAILY 08/18/18 12/30/18 Cholecalciferol [Vitamin D3] 5,000 unit PO DAILY 11/26/18 12/30/18 Propranolol HCl [Propranolol HCl 160 mg PO BID 11/26/18 12/30/18 ER] Valsartan/Hydrochlorothiazide 1 tab PO DAILY 11/26/18 12/30/18 [Valsartan-Hctz 160-12.5 mg Tab] Acetaminophen Tab [Tylenol Tab] 1,000 mg PO Q6HR PRN 12/30/18 12/30/18 Chlorthalidone [Hygroton] 25 mg PO DAILY 12/30/18 12/30/18 Allergies Allergy/AdvReac Type Severity Reaction Status Date / Time caffeine AdvReac MAKES Verified 12/30/18 10:38 SEIZURES MORE SEVERE carbamazepine [From Tegretol] AdvReac MAKES Verified 12/30/18 10:38 SEIZURES MORE SEVERE Review of Systems ROS Statement: Those systems with pertinent positive or pertinent negative responses have been documented in the HPI. ROS Other: All systems not noted in ROS Statement are negative. Past Medical History Past Medical History: Hypertension, Seizure Disorder Additional Past Medical History / Comment(s): occipital neuralgia History of Any Multi-Drug Resistant Organisms: MRSA Date of last positivie culture/infection: 2012 MDRO Source:: left leg Past Surgical History: No Surgical Hx Reported Additional Past Surgical History / Comment(s): polyps removed during colonoscopy Past Psychological History: Anxiety, Bipolar, Depression, PTSD, Schizophrenia Smoking Status: Never smoker Past Alcohol Use History: None Reported Past Drug Use History: Marijuana General Exam Limitations: no limitations General appearance: alert, in no apparent distress Head exam: Present: atraumatic, normocephalic, normal inspection. Absent: other (No erythema or scaliness noted to scalp) Eye exam: Present: normal appearance, PERRL, EOMI. Absent: scleral icterus, conjunctival injection, periorbital swelling ENT exam: Present: normal exam, normal oropharynx, mucous membranes moist, TM's normal bilaterally, normal external ear exam Neck exam: Present: normal inspection, full ROM, other (Patient is a 1 cm x 1 cm area of induration that is likely occipital lymph node on the left side, no erythema, no fluctuance. This is mobile.). Absent: tenderness, meningismus, lymphadenopathy Respiratory exam: Present: normal lung sounds bilaterally. Absent: respiratory distress, wheezes, rales, rhonchi, stridor Cardiovascular Exam: Present: regular rate, normal rhythm, normal heart sounds. Absent: systolic murmur, diastolic murmur, rubs, gallop, clicks Neurological exam: Present: alert, oriented X3, CN II-XII intact Psychiatric exam: Present: normal affect, normal mood Course Vital Signs 12/30/18 12/30/18 10:14 12:34 Temperature 98.4 F 98.0 F Pulse Rate 79 82 Respiratory 16 16 Rate Blood Pressure 162/120 173/133 O2 Sat by Pulse 96 98 Oximetry Medical Decision Making - Medical Decision Making 33-year-old male presents to the emergency department for a chief complaint of " bump on neck." This has been ongoing for 2 days and is painful. It is about once admitted by 1 cm. It is mobile, tender. Non-erythematous. I do not see any source of infection. This is likely a lymph node. However I did discuss the patient to monitor for spreading redness or drainage and return if these occur.Patient does have a blood pressure of 162/120 upon arrival. At that time patient had not yet taken his blood pressure medication chlorthalidone. He did take this and was given Catapres as well. Patient's blood pressure 173/133. Patient anxious to leave. States he has an appointment at [facility]'s clinic for his hypertension and 40 minutes and cannot miss it. Patient states he always has this high blood pressure. Upon review of records patient does have a history of similar hypertensive days. Denies any headache, chest pain, shortness of breath, abdominal pain, dizziness. At this time patient will be discharged so he can go to was an appointment for hypertension. However did discuss returning if he develops any worsening symptoms. Disposition Clinical Impression: Lymph node enlargement Disposition: HOME SELF-CARE Condition: Good Instructions (If sedation given, give patient instructions): Lymphadenopathy (ED) Additional Instructions: Please attend your appointment at 1:00 for your blood pressure. Please return to the emergency department if you have any worsening symptoms. Is patient prescribed a controlled substance at d/c from ED?: No Referrals: [facility] [Primary Care Provider] - 1-2 days Time of Disposition: 12:21
[2018-12-30 12:35] VITALS: BP 173/133; PULSE 82; TEMP 98
== END 2018-12-30 12:35 | disposition home or self-care (01) ==
LOC: EC 09:58
DX: R59.0 Localized enlarged lymph nodes (principal); R23.4 Changes in skin texture; M54.2 Cervicalgia; I10 Essential (primary) hypertension; Z88.8 Allergy status to other drugs, medicaments and biological substances; Z79.899 Other long term (current) drug therapy; Z86.14 Personal history of Methicillin resistant Staphylococcus aureus infection; Z53.8 Procedure and treatment not carried out for other reasons
CPT/HCPCS: 99282

== ENCOUNTER 2019-01-22 03:28 | Emergency (ER) | payer OTHER ==
[2019-01-22] MEDS ORDERED: cefTRIAXone 250 MG VIAL IM STA (03:30)
[2019-01-22] MEDS ORDERED: metroNIDAZOLE 500 MG TAB PO STA (03:31)
[2019-01-22] MEDS ORDERED: AZITHROMYCIN 500 MG TAB PO STA (03:31)
[2019-01-22 03:47] VITALS: BP 135/87; PULSE 74; RESP 16; TEMP 98.1
[2019-01-22 04:01] LABS: Appearance,Urine Clear (Clear); Bilirubin,Urine Negative (Negative); Blood,Urine Negative (Negative); Color,Urine Yellow; Glucose,Urine (UA) Negative (Negative); Ketones,Urine Negative (Negative); Leukocyte Esterase,Urine Negative (Negative); Nitrite,Urine Negative (Negative); PH, Urine 5.5 (5.0-8.0); Protein,Urine Trace (Negative); Specific Gravity,Urine 1.015 (1.001-1.035); Urobilinogen,Urine <2.0 mg/dL (<2.0)
--- NOTE | 2019-01-22 04:03 | ED ---
General Adult HPI - General Source: patient, RN notes reviewed Mode of arrival: ambulatory Limitations: no limitations <Shine Franks P - Last Filed: 01/22/19 03:58> <Pamela Raimrez P - Last Filed: 01/22/19 21:14> - General Stated complaint: Needs to be checked out Time Seen by Provider: 01/22/19 03:30 - History of Present Illness Initial comments: 33-year-old male presents to the emergency department for a chief complaint of possible STD. Patient states his girlfriend is currently being treated empirically for STDs. Patient denies any symptoms at this time but would like empiric treatment. Denies dysuria, urethral discharge, abdominal pain, testicular pain.Patient has no other complaints at this time including shortness of breath, chest pain, abdominal pain, nausea or vomiting, headache, or visual changes. (Shine Franks) - Related Data Home Medications Medication Instructions Recorded Confirmed amLODIPine [Norvasc] 10 mg PO DAILY 08/18/18 12/30/18 Cholecalciferol [Vitamin D3] 5,000 unit PO DAILY 11/26/18 12/30/18 Propranolol HCl [Propranolol HCl 160 mg PO BID 11/26/18 12/30/18 ER] Valsartan/Hydrochlorothiazide 1 tab PO DAILY 11/26/18 12/30/18 [Valsartan-Hctz 160-12.5 mg Tab] Acetaminophen Tab [Tylenol Tab] 1,000 mg PO Q6HR PRN 12/30/18 12/30/18 Chlorthalidone [Hygroton] 25 mg PO DAILY 12/30/18 12/30/18 Allergies Allergy/AdvReac Type Severity Reaction Status Date / Time caffeine AdvReac MAKES Verified 01/22/19 03:47 SEIZURES MORE SEVERE carbamazepine [From Tegretol] AdvReac MAKES Verified 01/22/19 03:47 SEIZURES MORE SEVERE Review of Systems ROS Other: All systems not noted in ROS Statement are negative. <Shine Franks P - Last Filed: 01/22/19 03:58> ROS Other: All systems not noted in ROS Statement are negative. <Pamela Ramirez P - Last Filed: 01/22/19 21:14> ROS Statement: Those systems with pertinent positive or pertinent negative responses have been documented in the HPI. Past Medical History Past Medical History: Hypertension, Seizure Disorder Additional Past Medical History / Comment(s): occipital neuralgia History of Any Multi-Drug Resistant Organisms: MRSA Date of last positivie culture/infection: 2012 MDRO Source:: left leg Past Surgical History: No Surgical Hx Reported Additional Past Surgical History / Comment(s): polyps removed during colonoscopy Past Psychological History: Anxiety, Bipolar, Depression, PTSD, Schizophrenia Smoking Status: Never smoker Past Alcohol Use History: None Reported Past Drug Use History: Marijuana <Shine Franks P - Last Filed: 01/22/19 03:58> General Exam Limitations: no limitations General appearance: alert, in no apparent distress Head exam: Present: atraumatic, normocephalic, normal inspection Eye exam: Present: normal appearance, PERRL, EOMI. Absent: scleral icterus, conjunctival injection, periorbital swelling ENT exam: Present: normal exam, mucous membranes moist Neck exam: Present: normal inspection, full ROM. Absent: tenderness, meningismus, lymphadenopathy Respiratory exam: Present: normal lung sounds bilaterally. Absent: respiratory distress, wheezes, rales, rhonchi, stridor Cardiovascular Exam: Present: regular rate, normal rhythm, normal heart sounds. Absent: systolic murmur, diastolic murmur, rubs, gallop, clicks GI/Abdominal exam: Present: soft, normal bowel sounds. Absent: distended, tenderness, guarding, rebound, rigid Neurological exam: Present: alert, oriented X3, CN II-XII intact Psychiatric exam: Present: normal affect, normal mood <Shine Franks P - Last Filed: 01/22/19 03:58> Course Vital Signs 01/22/19 03:45 Temperature 98.1 F Pulse Rate 74 Respiratory 16 Rate Blood Pressure 135/87 O2 Sat by Pulse 98 Oximetry Medical Decision Making <Shine Franks P - Last Filed: 01/22/19 03:58> <Pamela Ramirez P - Last Filed: 01/22/19 21:14> - Medical Decision Making 33-year-old male presents to the emergency department for a chief complaint of possible sexually transmitted diseases. Patient states that his girlfriend is being empirically treated and would like to be treated as well. Denies any symptoms including dysuria, urethral discharge, testicular pain, fevers or chills. Patient to do appear clean. Results for gonorrhea chlamydia and Trichomonas currently pending. He will follow up on these results. He will return here for has any worsening symptoms. (Shine Franks) I was available for consultation in the emergency department. The history and physical exam were done by the midlevel provider. I was consulted for this patient's care. I reviewed the case with the midlevel provider and based on their presentation of the patient, I agree with the assessment, medical decision making and plan of care as documented. (Pamela Ramirez) - Lab Data Lab Results 01/22/19 Range/Units 03:48 Urine Color Yellow Urine Appearance Clear (Clear) Urine pH 5.5 (5.0-8.0) Ur Specific [place] 1.015 (1.001-1.035) Urine Protein Trace H (Negative) Urine Glucose (UA) Negative (Negative) Urine Ketones Negative (Negative) Urine Blood Negative (Negative) Urine Nitrite Negative (Negative) Urine Bilirubin Negative (Negative) Urine Urobilinogen <2.0 (<2.0) mg/dL Ur Leukocyte Esterase Negative (Negative) Disposition Is patient prescribed a controlled substance at d/c from ED?: No Time of Disposition: 04:02 <Shine Franks - Last Filed: 01/22/19 03:58> <Pamela Ramirez - Last Filed: 01/22/19 21:14> Clinical Impression: STD exposure Disposition: ADMITTED IP TO THIS [facility] Condition: Good Instructions (If sedation given, give patient instructions): Sexually Transmitted Diseases (ED), Safe Sex (ED) Additional Instructions: Please follow up with primary care in 1-2 days. Please return here to the emergency department if you have any worsening symptoms Referrals: [facility] [Primary Care Provider] - 1-2 days
[2019-01-24 08:16] LABS: C. trachomatis,PCR Negative (Neg,Equiv); Chlamydia trachomatis Source Urine
[2019-01-24 08:25] LABS: N. gonorrhoeae,PCR Negative (Neg,Equiv); Neisseria Source Urine
== END 2019-01-22 04:24 | disposition home or self-care (01) ==
LOC: EC 03:28
DX: Z20.2 Contact with and (suspected) exposure to infections with a predominantly sexual mode of transmission (principal); I10 Essential (primary) hypertension; Z79.899 Other long term (current) drug therapy; Z88.8 Allergy status to other drugs, medicaments and biological substances; Z91.018 Allergy to other foods
CPT/HCPCS: 81003; 87491; 87591; 99283; 96372; J0696

== ENCOUNTER 2019-08-25 15:49 | Inpatient (IN) | payer OTHER ==
[2019-08-25] MEDS ORDERED: SODIUM CHLORIDE 0.9% 500 ML 500 ML IV STA (16:14)
[2019-08-25 16:30] LABS: Basophils # (A) 0.1 k/uL (0-0.2); Basophils % (A) 1 %; Eosinophils # (A) 0.1 k/uL (0-0.7); Eosinophils % (A) 1 %; HCT 46.5 % (39.0-53.0); HGB 15.4 gm/dL (13.0-17.5); Lymphocytes # (A) 0.8 k/uL (1.0-4.8); Lymphocytes % (A) 12 %; MCHC 33.1 g/dL (31.0-37.0); MCV 81.4 fL (80.0-100.0); Mean Platelet Volume 8.5; Monocytes # (A) 0.3 k/uL (0-1.0); Monocytes % (A) 4 %; Neutrophils # (A) 5.4 k/uL (1.3-7.7); Neutrophils % (A) 81 %; Platelet Count 195 k/uL (150-450); RBC 5.71 m/uL (4.30-5.90); RDW 13.1 % (11.5-15.5); WBC 6.7 k/uL (3.8-10.6)
[2019-08-25 16:39] LABS: ALT 21 U/L (21-72); AST 29 U/L (17-59); African American GFR (CKD) >90 (>60 ml/min/1.73 sqM); Alkaline Phosphatase 68 U/L (38-126); Anion Gap 12 mmol/L; Blood Urea Nitrogen 12 mg/dL (9-20); Calcium 10.1 mg/dL (8.4-10.2); Carbon Dioxide 24 mmol/L (22-30); Chloride 106 mmol/L (98-107); Glucose 120 mg/dL (74-99); Magnesium 1.8 mg/dL (1.6-2.3); Non-African American GFR(CKD) 80 (>60 ml/min/1.73 sqM); Potassium 3.7 mmol/L (3.5-5.1); Sodium 142 mmol/L (137-145); Total Bilirubin 0.5 mg/dL (0.2-1.3); Total Protein 8.3 g/dL (6.3-8.2)
[2019-08-25] MEDS ORDERED: TOPIRAMATE 100 MG TAB PO STA (16:47)
--- NOTE | 2019-08-25 16:47 | ED ---
General Adult HPI - General Chief complaint: Seizure Stated complaint: nausea/vomiting Source: patient, EMS, RN notes reviewed Mode of arrival: EMS Limitations: no limitations - History of Present Illness Initial comments: 34-year-old male with a past medical history of hypertension, seizure disorder presents to the emergency department for a chief complaint of seizure. Patient states he was lying in his bed when he started to feel acutely was going to have a seizure. States that his friend witnessed this seizure. Patient states he is lying better now although somewhat nauseous. Patient has not been taking his antiseizure medication. He has not been taking his blood pressure medication. Patient does not have his Topamax with him. I did verify with [facility] and hence t reated that this is on hold for him there. Denies any other symptoms.Patient has no other complaints at this time including shortness of breath, chest pain, abdominal pain, nausea or vomiting, headache, or visual changes. - Related Data Home Medications Medication Instructions Recorded Confirmed amLODIPine [Norvasc] 10 mg PO DAILY 08/18/18 08/25/19 Propranolol HCl [Propranolol HCl 160 mg PO BID 11/26/18 08/25/19 ER] Valsartan/Hydrochlorothiazide 1 tab PO DAILY 11/26/18 08/25/19 [Valsartan-Hctz 160-12.5 mg Tab] QUEtiapine [SEROquel] 25 mg PO BID 08/25/19 08/25/19 Sertraline [Zoloft] 200 mg PO DAILY 08/25/19 08/25/19 Topiramate [Topamax] 100 mg PO BID 08/25/19 08/25/19 Allergies Allergy/AdvReac Type Severity Reaction Status Date / Time caffeine AdvReac MAKES Verified 08/25/19 17:37 SEIZURES MORE SEVERE carbamazepine [From Tegretol] AdvReac MAKES Verified 08/25/19 17:37 SEIZURES MORE SEVERE Review of Systems ROS Statement: Those systems with pertinent positive or pertinent negative responses have been documented in the HPI. ROS Other: All systems not noted in ROS Statement are negative. Past Medical History Past Medical History: Hypertension, Seizure Disorder Additional Past Medical History / Comment(s): occipital neuralgia History of Any Multi-Drug Resistant Organisms: MRSA Date of last positivie culture/infection: 2012 MDRO Source:: left leg Past Surgical History: No Surgical Hx Reported Additional Past Surgical History / Comment(s): polyps removed during colonoscopy Past Psychological History: Anxiety, Bipolar, Depression, PTSD, Schizophrenia Smoking Status: Never smoker Past Alcohol Use History: None Reported Past Drug Use History: Marijuana General Exam Limitations: no limitations General appearance: alert, in no apparent distress Head exam: Present: atraumatic, normocephalic, normal inspection Eye exam: Present: normal appearance, PERRL, EOMI. Absent: scleral icterus, con junctival injection, periorbital swelling ENT exam: Present: normal exam, mucous membranes moist Neck exam: Present: normal inspection, full ROM. Absent: tenderness, meningismus, lymphadenopathy Respiratory exam: Present: normal lung sounds bilaterally. Absent: respiratory distress, wheezes, rales, rhonchi, stridor Cardiovascular Exam: Present: regular rate, normal rhythm, normal heart sounds. Absent: systolic murmur, diastolic murmur, rubs, gallop, clicks GI/Abdominal exam: Present: soft, normal bowel sounds. Absent: distended, tenderness, guarding, rebound, rigid Neurological exam: Present: alert, oriented X3, CN II-XII intact, normal gait, other (GCS 15) Course Vital Signs 08/25/19 08/25/19 08/25/19 15:53 16:49 18:51 Temperature 97.1 F L Pulse Rate 95 89 Respiratory 18 18 Rate Blood Pressure 164/129 148/114 163/103 O2 Sat by Pulse 98 97 Oximetry 08/25/19 08/25/19 08/25/19 19:15 20:00 21:00 Temperature Pulse Rate Respiratory Rate Blood Pressure 159/117 160/112 156/98 O2 Sat by Pulse Oximetry 08/25/19 08/25/19 21:42 22:08 Temperature Pulse Rate 99 Respiratory 18 Rate Blood Pressure 161/104 156/108 O2 Sat by Pulse 98 Oximetry EKG Findings - EKG Comments: EKG Findings:: Sinus tachycardia, ventricular rate 111, QRS duration 98, QTC 448, there are T-wave inversions noted in II, III, and aVF as well as V5 V6. These are new compared to the exam from 2015. Medical Decision Making - Medical Decision Making 34-year-old male is well-appearing. Presents for possible seizure at home. Has a history of seizure disorder and has not been the his medications. However these are available at [facility] for him. CBC CMP unremarkable. Urinalysis shows some evidence of dehydration, patient was given fluids. Pt had a brain CT about 18 months ago that showed no acute cranial process. He was given his home dose of Norvasc here in the emergency department as he has been hypertensive up to a diastolic of 1:30. Patient has been noncompliant with blood pressure medications at home. Patient remained hypertensive in the emergency department, was given 2 doses of hydralazine here in the emergency department. He did have reflex tachycardia with a ventricular rate of 111, EKG was performed. This did show changes compared to old exam a 2014. Therefore troponin was ordered and was negative. At this time discussed with Dr. Lee recommended giving labetalol. Patient remained hypertensive and was given labetalol. Patient continued to remain hypertensive. Dr. Lee recommending admission or intractable hypertension. Doctor Rafael admission. - Lab Data Result diagrams: 08/25/19 15:59 08/25/19 15:59 Lab Results 08/25/19 08/25/19 08/25/19 Range/Units 15:59 15:59 15:59 WBC 6.7 (3.8-10.6) k/uL RBC 5.71 (4.30-5.90) m/uL Hgb 15.4 (13.0-17.5) gm/dL Hct 46.5 (39.0-53.0) % MCV 81.4 (80.0-100.0) fL MCH 27.0 (25.0-35.0) pg MCHC 33.1 (31.0-37.0) g/dL RDW 13.1 (11.5-15.5) % Plt Count 195 (150-450) k/uL Neutrophils % 81 % Lymphocytes % 12 % Monocytes % 4 % Eosinophils % 1 % Basophils % 1 % Neutrophils # 5.4 (1.3-7.7) k/uL Lymphocytes # 0.8 L (1.0-4.8) k/uL Monocytes # 0.3 (0-1.0) k/uL Eosinophils # 0.1 (0-0.7) k/uL Basophils # 0.1 (0-0.2) k/uL Sodium 142 (137-145) mmol/L Potassium 3.7 (3.5-5.1) mmol/L Chloride 106 (98-107) mmol/L Carbon Dioxide 24 (22-30) mmol/L Anion Gap 12 mmol/L BUN 12 (9-20) mg/dL Creatinine 1.18 (0.66-1.25) mg/dL Est GFR (CKD-EPI)AfAm >90 (>60 ml/min/1.73 sqM) Est GFR (CKD-EPI)NonAf 80 (>60 ml/min/1.73 sqM) Glucose 120 H (74-99) mg/dL Calcium 10.1 (8.4-10.2) mg/dL Magnesium 1.8 (1.6-2.3) mg/dL Total Bilirubin 0.5 (0.2-1.3) mg/dL AST 29 (17-59) U/L ALT 21 (21-72) U/L Alkaline Phosphatase 68 (38-126) U/L Troponin I <0.012 (0.000-0.034) ng/mL Total Protein 8.3 H (6.3-8.2) g/dL Albumin 5.0 (3.5-5.0) g/dL Urine Color Urine Appearance (Clear) Urine pH (5.0-8.0) Ur Specific [place] (1.001-1.035) Urine Protein (Negative) Urine Glucose (UA) (Negative) Urine Ketones (Negative) Urine Blood (Negative) Urine Nitrite (Negative) Urine Bilirubin (Negative) Urine Urobilinogen (<2.0) mg/dL Ur Leukocyte Esterase (Negative) Urine RBC (0-5) /hpf Urine WBC (0-5) /hpf Ur Squamous Epith Cells (0-4) /hpf Urine Mucus (None) /hpf Urine Opiates Screen (NotDetected) Ur Oxycodone Screen (NotDetected) Urine Methadone Screen (NotDetected) Ur Propoxyphene Screen (NotDetected) Ur Barbiturates Screen (NotDetected) U Tricyclic Antidepress (NotDetected) Ur Phencyclidine Scrn (NotDetected) Ur Amphetamines Screen (NotDetected) U Methamphetamines Scrn (NotDetected) U Benzodiazepines Scrn (NotDetected) Urine Cocaine Screen (NotDetected) U Marijuana (THC) Screen (NotDetected) 08/25/19 Range/Units 17:39 WBC (3.8-10.6) k/uL RBC (4.30-5.90) m/uL Hgb (13.0-17.5) gm/dL Hct (39.0-53.0) % MCV (80.0-100.0) fL MCH (25.0-35.0) pg MCHC (31.0-37.0) g/dL RDW (11.5-15.5) % Plt Count (150-450) k/uL Neutrophils % % Lymphocytes % % Monocytes % % Eosinophils % % Basophils % % Neutrophils # (1.3-7.7) k/uL Lymphocytes # (1.0-4.8) k/uL Monocytes # (0-1.0) k/uL Eosinophils # (0-0.7) k/uL Basophils # (0-0.2) k/uL Sodium (137-145) mmol/L Potassium (3.5-5.1) mmol/L Chloride (98-107) mmol/L Carbon Dioxide (22-30) mmol/L Anion Gap mmol/L BUN (9-20) mg/dL Creatinine (0.66-1.25) mg/dL Est GFR (CKD-EPI)AfAm (>60 ml/min/1.73 sqM) Est GFR (CKD-EPI)NonAf (>60 ml/min/1.73 sqM) Glucose (74-99) mg/dL Calcium (8.4-10.2) mg/dL Magnesium (1.6-2.3) mg/dL Total Bilirubin (0.2-1.3) mg/dL AST (17-59) U/L ALT (21-72) U/L Alkaline Phosphatase (38-126) U/L Troponin I (0.000-0.034) ng/mL Total Protein (6.3-8.2) g/dL Albumin (3.5-5.0) g/dL Urine Color Yellow Urine Appearance Clear (Clear) Urine pH 7.5 (5.0-8.0) Ur Specific [place] 1.028 (1.001-1.035) Urine Protein 1+ H (Negative) Urine Glucose (UA) Negative (Negative) Urine Ketones 2+ H (Negative) Urine Blood Negative (Negative) Urine Nitrite Negative (Negative) Urine Bilirubin Negative (Negative) Urine Urobilinogen <2.0 (<2.0) mg/dL Ur Leukocyte Esterase Negative (Negative) Urine RBC 1 (0-5) /hpf Urine WBC 1 (0-5) /hpf Ur Squamous Epith Cells <1 (0-4) /hpf Urine Mucus Moderate H (None) /hpf Urine Opiates Screen Not Detected (NotDetected) Ur Oxycodone Screen Not Detected (NotDetected) Urine Methadone Screen Not Detected (NotDetected) Ur Propoxyphene Screen Not Detected (NotDetected) Ur Barbiturates Screen Not Detected (NotDetected) U Tricyclic Antidepress Not Detected (NotDetected) Ur Phencyclidine Scrn Not Detected (NotDetected) Ur Amphetamines Screen Not Detected (NotDetected) U Methamphetamines Scrn Not Detected (NotDetected) U Benzodiazepines Scrn Not Detected (NotDetected) Urine Cocaine Screen Not Detected (NotDetected) U Marijuana (THC) Screen Detected H (NotDetected) Disposition Clinical Impression: Hypertension Disposition: ADMITTED IP TO THIS [facility] Condition: Fair Is patient prescribed a controlled substance at d/c from ED?: No Referrals: [facility] [Primary Care Provider] - 1-2 days Time of Disposition: 22:37
[2019-08-25] MEDS ORDERED: amLODIPine 10 MG TAB PO STA (17:28)
[2019-08-25 17:52] LABS: Appearance,Urine Clear (Clear); Bilirubin,Urine Negative (Negative); Blood,Urine Negative (Negative); Color,Urine Yellow; Glucose,Urine (UA) Negative (Negative); Ketones,Urine 2+ (Negative); Leukocyte Esterase,Urine Negative (Negative); Mucus,Urine Moderate /hpf; Nitrite,Urine Negative (Negative); PH, Urine 7.5 (5.0-8.0); Protein,Urine 1+ (Negative); RBC,Urine 1 /hpf (0-5); Specific Gravity,Urine 1.028 (1.001-1.035); Squamous Epithelial Cell,Urine <1 /hpf (0-4); Urobilinogen,Urine <2.0 mg/dL (<2.0)
[2019-08-25 17:58] LABS: Amphetamine Screen,Urine Not Detected (NotDetected); Barbiturate Screen,Urine Not Detected (NotDetected); Benzodiazepines Screen,Urine Not Detected (NotDetected); Cocaine Screen,Urine Not Detected (NotDetected); Methadone Screen, Urine Not Detected (NotDetected); Opiate Screen,Urine Not Detected (NotDetected); Oxycodone Screen, Urine Not Detected (NotDetected); Phencyclidine Screen,Urine Not Detected (NotDetected); Tricyclic Antidepressant,Urine Not Detected (NotDetected); Urn Cannabinoid Scrn Detected (NotDetected)
[2019-08-25] MEDS ORDERED: hydrALAZINE HCL 20 MG/ML 1 ML VIAL IVP STA ×2 (18:20→19:53)
[2019-08-25] MEDS ORDERED: LABETALOL 5 MG/ML VIAL MDV IVP STA (21:31)
[2019-08-25] MEDS ORDERED: NALOXONE 0.4 MG/ML 1 ML VIAL IV PRN (22:21)
[2019-08-25] MEDS ORDERED: ENALAPRILAT 1.25 MG/ML 1 ML VIAL IVP PRN (22:28)
[2019-08-25] MEDS: SODIUM CHLORIDE 0.9% 1,000 ML IV SCH (23:11)
[2019-08-25] MEDS ORDERED: VALSARTAN 160 MG TAB PO SCH (23:30)
[2019-08-26] MEDS: HYDROCHLOROTHIAZIDE 12.5 MG CAP PO SCH ×2 (00:18→09:55)
[2019-08-26] MEDS: PROPRANOLOL LA 80 MG CAP.SA.24H PO SCH ×3 (00:20→21:30)
[2019-08-26] MEDS: VALSARTAN 160 MG TAB PO SCH ×2 (00:24→09:55)
[2019-08-26] MEDS: TOPIRAMATE 100 MG TAB PO SCH ×2 (09:53→21:30)
[2019-08-26] MEDS: QUEtiapine 25 MG TAB PO SCH ×2 (09:55→21:30)
[2019-08-26] MEDS: SERTRALINE 100 MG TAB PO SCH (09:55)
[2019-08-26] MEDS: amLODIPine 10 MG TAB PO SCH (09:55)
[2019-08-26] MEDS ORDERED: ONDANSETRON 4 MG/2 ML VIAL IVP PRN (15:45)
--- NOTE | 2019-08-26 21:29 | P.HPIM ---
History of Present Illness H&P Date: 08/26/19 Chief Complaint: Seizures Mr. Bassett is a 34-year-old male with a past medical history of seizures and hypertension coming into the emergency Department with the chief complaint of seizure. Patient states that for the past couple of weeks he has not been taking his hypertensive or seizure medications due to insurance issues. He was lying in bed and felt like he was going to have a seizure, had a witnessed seizure (by his girlfriend). He denies having loss of control of his bladder or bowel. No tongue bites. He states that he has been having nausea and threw up 3 or 4 times before coming into the hospital. He was also complaining of lower abdominal pain. Patient reports having 3-4 loose watery bowel movements since being in the hospital. He complains of loss of appetite. He denies having any chest pain or palpitations. No cough or difficulty in breathing. Mild lower abdominal pain. No dysuria or hematuria. No swelling of his lower extremities. No fevers chills or rhinitis. In the emergency department patient had high blood pressure readings and he was started on his home medications and admitted for further management. Patient's labs have been reviewed and within normal limits. Review of Systems REVIEW OF SYSTEMS: PSYCH: History of anxiety and depression NEURO:No c/o weakness of the extremties, No facial droop, No speech abnormalities. VASCULAR: Peripheral nervous system within the normal limits no edema HEMATOLOGIC: No history of easy bleeding and bruising . No recent infections . RESPIRATORY: No cough, No SOB, No chest discomfort. IMMUNE: No infections INTEGUMENT: no rashes OPHTHALMOLOGIC: No blurry vision and no eye discharge : No dysuria or hematuria CARDIAC: No chest pain , shortness of breath , paroxysmal nocturnal dyspnea MUSCULOSKELETAL : No Aches or pains in the joints or muscles. GI: As per HPI 13 review of systems done and negative except for mentioned above Past Medical History Past Medical History: Hypertension, Seizure Disorder Additional Past Medical History / Comment(s): occipital neuralgia History of Any Multi-Drug Resistant Organisms: MRSA Date of last positivie culture/infection: 2012 MDRO Source:: left leg Past Surgical History: No Surgical Hx Reported Additional Past Surgical History / Comment(s): polyps removed during colonoscopy Past Psychological History: Anxiety, Bipolar, Depression, PTSD, Schizophrenia Smoking Status: Current every day smoker Past Alcohol Use History: None Reported Past Drug Use History: Marijuana - Past Family History Father Family Medical History: Unable to Obtain Mother Additional Family Medical History / Comment(s): schizophrenia, bipolar Medications and Allergies Home Medications Medication Instructions Recorded Confirmed Type amLODIPine [Norvasc] 10 mg PO DAILY 08/18/18 08/25/19 History Propranolol HCl [Propranolol HCl 160 mg PO BID 11/26/18 08/25/19 History ER] Valsartan/Hydrochlorothiazide 1 tab PO DAILY 11/26/18 08/25/19 History [Valsartan-Hctz 160-12.5 mg Tab] QUEtiapine [SEROquel] 25 mg PO BID 08/25/19 08/25/19 History Sertraline [Zoloft] 200 mg PO DAILY 08/25/19 08/25/19 History Topiramate [Topamax] 100 mg PO BID 08/25/19 08/25/19 History Allergies Allergy/AdvReac Type Severity Reaction Status Date / Time caffeine AdvReac MAKES Verified 08/25/19 17:37 SEIZURES MORE SEVERE carbamazepine [From Tegretol] AdvReac MAKES Verified 08/25/19 17:37 SEIZURES MORE SEVERE Physical Exam Vitals: Vital Signs Temp Pulse Pulse Resp BP BP Pulse Ox 08/26/19 15:34 98.8 F 73 16 127/79 97 08/26/19 12:00 98.6 F 76 16 137/80 97 08/26/19 08:00 98.9 F 76 14 132/81 98 08/26/19 06:17 79 149/97 08/26/19 04:00 97 F L 74 18 150/102 95 08/26/19 00:00 98 F 93 18 161/97 98 08/25/19 23:11 99.2 F 92 18 151/111 97 08/25/19 22:08 156/108 08/25/19 21:42 99 18 161/104 98 08/25/19 21:00 156/98 08/25/19 20:00 160/112 08/25/19 19:15 159/117 08/25/19 18:51 89 18 163/103 97 Intake and Output 08/26/19 08/26/19 08/26/19 06:59 14:59 22:59 Intake Total 720 Balance 720 Intake: Oral 720 Other: Voiding Method Toilet Toilet # Voids 2 1 Weight 79.7 kg GEN. APPEARANCE: alert, in no apparent distress HEENT : No pallor. No icterus. Mucous membranes dry. No JVD. No thyromegaly. RESPIRATORY EXAM: Bilateral breath sounds are positive. No wheeze or crackles. CARDIOVASCULAR EXAM: S1 and S2 heard no additional sounds. GI/ABDOMINAL EXAM: soft, normal bowel sounds. Mild tenderness in the lower abdominal area. No CVA tenderness. EXTREMITIES EXAM: No pedal edema. No calf tenderness. NEUROLOGICAL EXAM: alert, oriented X3, no focal deficits PSYCHIATRIC EXAM: normal affect, normal mood SKIN EXAM: warm, dry, intact, normal color. Absent: rash Results CBC & Chem 7: 08/25/19 15:59 08/25/19 15:59 Thrombosis Risk Factor Assmnt - Choose All That Apply Any of the Below Risk Factors Present?: No Assessment and Plan Assessment: ASSESSMENT Seizures -secondary to noncompliance with medications Hypertensive urgency Gastroenteritis Anxiety with depression Schizophrenia PTSD PLAN: Patient has been started on Topamax. He has been restarted on his home medications and his blood pressure seems to be under better control currently. Will consult neurology. Likely causes of his gastroenteritis might be viral so will do symptomatic management and continue with IV fluids. We will repeat the lytes for tomorrow morning. Further admonitions to follow depending on the progress of the patient.
[2019-08-27 05:56] LABS: WBC 6.3 k/uL (3.8-10.6)
[2019-08-27 05:57] LABS: Basophils % (A) 1 %; Eosinophils # (A) 0.1 k/uL (0-0.7); Eosinophils % (A) 1 %; HCT 49.8 % (39.0-53.0); HGB 16.8 gm/dL (13.0-17.5); Lymphocytes # (A) 1.9 k/uL (1.0-4.8); Lymphocytes % (A) 30 %; MCH 27.6 pg (25.0-35.0); MCHC 33.7 g/dL (31.0-37.0); MCV 82.1 fL (80.0-100.0); Mean Platelet Volume 7.2; Monocytes # (A) 0.4 k/uL (0-1.0); Monocytes % (A) 7 %; Neutrophils # (A) 3.8 k/uL (1.3-7.7); Neutrophils % (A) 60 %; Platelet Count 209 k/uL (150-450); RBC 6.07 m/uL (4.30-5.90); RDW 13.3 % (11.5-15.5)
[2019-08-27 06:08] LABS: Calcium 10.1 mg/dL (8.4-10.2); Potassium 4.3 mmol/L (3.5-5.1)
[2019-08-27] MEDS: SODIUM CHLORIDE 0.9% 1,000 ML IV SCH ×4 (06:57→21:49)
[2019-08-27] MEDS: ENOXAPARIN 40 MG/0.4 ML SYRINGE SQ SCH (09:36)
[2019-08-27] MEDS: PROPRANOLOL LA 80 MG CAP.SA.24H PO SCH ×2 (09:36→21:49)
[2019-08-27] MEDS: SERTRALINE 100 MG TAB PO SCH (09:37)
[2019-08-27] MEDS: amLODIPine 10 MG TAB PO SCH (09:37)
[2019-08-27] MEDS: QUEtiapine 25 MG TAB PO SCH ×2 (09:37→21:49)
[2019-08-27] MEDS: VALSARTAN 160 MG TAB PO SCH (09:37)
[2019-08-27] MEDS: HYDROCHLOROTHIAZIDE 12.5 MG CAP PO SCH (09:37)
[2019-08-27] MEDS: TOPIRAMATE 100 MG TAB PO SCH ×2 (09:37→21:49)
--- NOTE | 2019-08-27 11:43 | P.CNNES ---
History of Present Illness Consult date: 08/27/19 Reason for Consult: seizure Chief complaint: seizure History of Present Illness: Mr. 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 Mr. Bassett reportedly has not been taking his antiepileptic medication or antihypertensive medication, for couple weeks because of insurance problems. Mr. Bassett reports having a long history of seizures, beginning when he was proximate 16 years of age. He says prior to the seizure that brought him in, his most recent seizure was 3 months ago. He reports following through neurologist who he saw most recently 2 months ago. He tells me he normally takes Topamax 100 mg twice daily. He says his seizures are usually well controlled. Mr. Bassett does report knowing when his seizure will begin he says he starts to have blurring of his vision and shaking of his hands. He also reports difficulty with his speech he does not always lose consciousness with his seizures. He tells me that he does often have bowel and bladder incontinence and will occasionally have tongue biting. The seizure that brought him in did not involve incontinence or tongue biting. Review of Systems Negative except for that noted in history of chief complaint Past Medical History Past Medical History: Hypertension, Seizure Disorder Additional Past Medical History / Comment(s): occipital neuralgia History of Any Multi-Drug Resistant Organisms: MRSA Date of last positivie culture/infection: 2012 MDRO Source:: left leg Past Surgical History: No Surgical Hx Reported Additional Past Surgical History / Comment(s): polyps removed during colonoscopy Past Psychological History: Anxiety, Bipolar, Depression, PTSD, Schizophrenia Smoking Status: Current every day smoker Past Alcohol Use History: None Reported Past Drug Use History: Marijuana - Past Family History Father Family Medical History: Unable to Obtain Mother Additional Family Medical History / Comment(s): schizophrenia, bipolar Medications and Allergies Home Medications Medication Instructions Recorded Confirmed Type amLODIPine [Norvasc] 10 mg PO DAILY 08/18/18 08/25/19 History Propranolol HCl [Propranolol HCl 160 mg PO BID 11/26/18 08/25/19 History ER] Valsartan/Hydrochlorothiazide 1 tab PO DAILY 11/26/18 08/25/19 History [Valsartan-Hctz 160-12.5 mg Tab] QUEtiapine [SEROquel] 25 mg PO BID 08/25/19 08/25/19 History Sertraline [Zoloft] 200 mg PO DAILY 08/25/19 08/25/19 History Topiramate [Topamax] 100 mg PO BID 08/25/19 08/25/19 History Allergies Allergy/AdvReac Type Severity Reaction Status Date / Time caffeine AdvReac MAKES Verified 08/25/19 17:37 SEIZURES MORE SEVERE carbamazepine [From Tegretol] AdvReac MAKES Verified 08/25/19 17:37 SEIZURES MORE SEVERE Physical Examination - Vital Signs Vital Signs: Vital Signs Temp Pulse Pulse Resp BP Pulse Ox 08/27/19 08:00 98.4 F 75 14 144/93 98 08/27/19 04:00 98.2 F 66 17 135/83 96 08/27/19 00:00 98.8 F 66 16 121/77 97 08/26/19 20:00 98.5 F 63 63 16 140/87 97 08/26/19 15:34 98.8 F 73 16 127/79 97 08/26/19 12:00 98.6 F 76 16 137/80 97 Intake and Output 08/26/19 08/27/19 08/27/19 22:59 06:59 14:59 Intake Total 600 360 Balance 600 360 Intake: Intake, IV Titration 600 Amount Sodium Chloride 0.9% 1, 600 000 ml @ 75 mls/hr IV . [id number] [facility] Rx#:[id number] Oral 360 Other: Voiding Method Toilet Toilet Toilet # Voids 3 Weight 77.7 kg General: She is well-nourished, well-developed and in no acute distress. HEENT: Head is atraumatic, normocephalic. Funduscopic examination is benign. There is no scleral icterus. Mucous membranes are moist. Neck: Supple without carotid bruits Heart: Regular rate and rhythm Lungs: Clear to auscultation Extremities: Without edema Neurological examination Mental status: Patient awake, alert and oriented 3. His speech is clear. Cranial nerves: Pupils are equal, round and reactive to light. Visual fox are full to confrontation. Extraocular muscles are intact. There is no n ystagmus. Facial sensation is intact. There is no facial asymmetry. Hearing is grossly intact. Uvula and palate are midline. Shoulder shrug is symmetric. Tongue protrudes midline. There is no evidence of laceration. Motor: Strength is 5/5 throughout Sensation: Intact to light touch and temperature Coordination: Intact. there is no dysmetria, dysdiadochokinesia or ataxia [id number] testing was well performed Deep tendon reflexes: 2+/4+ throughout Gait: Not assessed Results - Laboratory Findings CBC and BMP: 08/27/19 05:32 08/27/19 05:32 Abnormal Lab Findings: Abnormal Labs 08/25/19 08/25/19 08/25/19 15:59 15:59 17:39 RBC Lymphocytes # 0.8 L Chloride BUN Creatinine Glucose 120 H Total Protein 8.3 H Urine Protein 1+ H Urine Ketones 2+ H Urine Mucus Moderate H U Marijuana (THC) Screen Detected H 08/27/19 08/27/19 05:32 05:32 RBC 6.07 H Lymphocytes # Chloride 108 H BUN 21 H Creatinine 1.63 H Glucose 102 H Total Protein Urine Protein Urine Ketones Urine Mucus U Marijuana (THC) Screen Assessment and Plan Assessment: Impressions 1. Breakthrough seizure secondary to noncompliance 2. Hypertensive urgency secondary to noncompliance Plan: Recommendations 1. Restart patient on his previous antiepileptic medication-Topamax 100 mg 2 times daily (dosing per patient) 2. Patient was advised of [place] law regarding no driving for 6 months following a seizure 3. Seizure precautions were discussed with the patient, specifically no swimming alone, no bathing while alone in the home, no climbing ladders, no walking on roofs and no driving. 4. Patient is neurologically stable for discharge Time with Patient: Greater than 30
--- NOTE | 2019-08-27 12:42 | P.PN ---
Subjective Progress Note Date: 08/27/19 Principal diagnosis: Seizures, hypertensive urgency, acute kidney injury Mr. Bassett is a 34-year-old male with a past medical history of seizures and hypertension coming into the emergency Department with the chief complaint of seizure. Patient states that for the past couple of weeks he has not been taking his hypertensive or seizure medications due to insurance issues. He was lying in bed and felt like he was going to have a seizure, had a witnessed seizure (by his girlfriend). He denies having loss of control of his bladder or bowel. No tongue bites. He states that he has been having nausea and threw up 3 or 4 times before coming into the hospital. He was also complaining of lower abdominal pain. Patient reports having 3-4 loose watery bowel movements since being in the hospital. He complains of loss of appetite. He denies having any chest pain or palpitations. No cough or difficulty in breathing. Mild lower abdominal pain. No dysuria or hematuria. No swelling of his lower extremities. No fevers chills or rhinitis. In the emergency department patient had high blood pressure readings and he was started on his home medications and admitted for further management. On 08/27/2019- patient has been lying comfortably in the bed. He denies having any more nausea or vomiting. The patient continues to have diarrhea. He had 4- 5 watery bowel movements since last night. He states that his lower abdominal pain is much better compared to yesterday. Patient had his breakfast this morning and was able to tolerate it without throwing up. Patient's blood pressure has been under better control. Patient denies having any chest pain or palpitations. No cough or difficulty in breathing. No dysuria or hematuria. He is having good urinary output. On reviewing the patient's labs his creatinine has jumped from 1.18-1.63 this morning. Active Medications Amlodipine Besylate (Norvasc) 10 mg PO DAILY [facility] Last Admin: 08/27/19 09:37 Dose: 10 mg Documented by: Enalaprilat (Vasotec) 1.25 mg IVP Q6HR PRN PRN Reason: sbp > 160 DBP > 100 Last Admin: 08/26/19 04:28 Dose: 1.25 mg Documented by: Enoxaparin Sodium (Lovenox) 40 mg SQ DAILY [facility] Last Admin: 08/27/19 09:36 Dose: 40 mg Documented by: Hydrochlorothiazide (Hydrodiuril) 12.5 mg PO DAILY [facility] Last Admin: 08/27/19 09:37 Dose: 12.5 mg Documented by: Sodium Chloride (Saline 0.9%) 1,000 mls @ 125 mls/hr IV .Q8H [facility] Naloxone HCl (Narcan) 0.2 mg IV Q2M PRN PRN Reason: Opioid Reversal Ondansetron HCl (Zofran) 4 mg IVP Q6HR PRN PRN Reason: Nausea And Vomiting Propranolol HCl (Inderal La) 160 mg PO BID [facility] Last Admin: 08/27/19 09:36 Dose: 160 mg Documented by: Quetiapine Fumarate (Seroquel) 25 mg PO BID [facility] Last Admin: 08/27/19 09:37 Dose: 25 mg Documented by: Sertraline HCl (Zoloft) 200 mg PO DAILY [facility] Last Admin: 08/27/19 09:37 Dose: 200 mg Documented by: Topiramate (Topamax) 100 mg PO BID [facility] Last Admin: 08/27/19 09:37 Dose: 100 mg Documented by: Valsartan (Diovan) 160 mg PO DAILY [facility] Last Admin: 08/27/19 09:37 Dose: 160 mg Documented by: Objective - Vital Signs Vital signs: Vital Signs Temp 98.8 F 08/27/19 11:31 Pulse 71 08/27/19 11:31 Resp 16 08/27/19 11:31 BP 123/79 08/27/19 11:31 Pulse Ox 97 08/27/19 11:31 Intake & Output 08/26/19 08/27/19 08/27/19 18:59 06:59 18:59 Intake Total 720 600 360 Balance 720 600 360 Weight 77.7 kg Intake: Intake, IV Titration 600 Amount Sodium Chloride 0.9% 1, 600 000 ml @ 75 mls/hr IV . [id number] [facility] Rx#:[id number] Oral 720 360 Other: Voiding Method Toilet Toilet Toilet # Voids 1 3 - Exam GEN. APPEARANCE: alert, in no apparent distress HEENT : No pallor. No icterus. Mucous membranes dry. RESPIRATORY EXAM: Bilateral breath sounds are positive. No wheeze or crackles. CARDIOVASCULAR EXAM: S1 and S2 heard no additional sounds. GI/ABDOMINAL EXAM: soft, normal bowel sounds. No tenderness, guarding or rigidity. EXTREMITIES EXAM: No pedal edema. No calf tenderness. NEUROLOGICAL EXAM: alert, oriented X3, no focal deficits - Labs CBC & Chem 7: 08/27/19 05:32 08/27/19 05:32 Labs: Abnormal Lab Results - Last 24 Hours (Table) 08/27/19 08/27/19 Range/Units 05:32 05:32 RBC 6.07 H (4.30-5.90) m/uL Chloride 108 H (98-107) mmol/L BUN 21 H (9-20) mg/dL Creatinine 1.63 H (0.66-1.25) mg/dL Glucose 102 H (74-99) mg/dL Assessment and Plan Assessment: ASSESSMENT Seizures -secondary to noncompliance with medications Acute kidney injury - possibly due to diarrhea Hypertensive urgency Gastroenteritis Anxiety with depression Schizophrenia PTSD PLAN: As there was a jump and creatinine to 1.6, which could be do to ongoing diarrhea, we will increase the patient's IV fluids to 125 mL/h. Encouraged the patient to drink plenty of fluids. He was evaluated by neurology and was suggested to continue on Topamax for seizure prophylaxis . Patient's blood pressure is under much better control. Will repeat the lytes for tomorrow morning. Further recommendations to follow depending on the progress of the patient.
[2019-08-28 06:38] LABS: Calcium 9.5 mg/dL (8.4-10.2); Potassium 4.1 mmol/L (3.5-5.1)
[2019-08-28 06:53] VITALS: RESP 17
[2019-08-28 06:57] VITALS: PULSE 71
[2019-08-28] MEDS: HYDROCHLOROTHIAZIDE 12.5 MG CAP PO SCH (09:27)
[2019-08-28] MEDS: amLODIPine 10 MG TAB PO SCH (09:27)
[2019-08-28] MEDS: SERTRALINE 100 MG TAB PO SCH (09:28)
[2019-08-28] MEDS: VALSARTAN 160 MG TAB PO SCH (09:28)
[2019-08-28] MEDS: QUEtiapine 25 MG TAB PO SCH (09:28)
[2019-08-28] MEDS: PROPRANOLOL LA 80 MG CAP.SA.24H PO SCH (09:28)
[2019-08-28] MEDS: ENOXAPARIN 40 MG/0.4 ML SYRINGE SQ SCH (09:28)
[2019-08-28] MEDS: TOPIRAMATE 100 MG TAB PO SCH (09:28)
[2019-08-28] MEDS: SODIUM CHLORIDE 0.9% 1,000 ML IV SCH (09:29)
[2019-08-28 09:55] VITALS: BP 130/79; TEMP 97.6
--- NOTE | 2019-08-28 12:39 | P.DS ---
Providers Date of admission: 08/25/19 22:29 Expected date of discharge: 08/28/19 Attending physician: Georgina Hall Consults: 08/26/19 16:47 Consult Physician Routine Consulting Provider: Carolina Lobo Consult Reason/Comments: seizure Do you want consulting provider notified?: Yes Primary care physician: [facility] Course: Mr. Bassett is a 34-year-old male with a past medical history of seizures and hypertension coming into the emergency Department with the chief complaint of seizure. Patient states that for the past couple of weeks he has not been taking his hypertensive or seizure medications due to insurance issues. He was lying in bed and felt like he was going to have a seizure, had a witnessed seizure (by his girlfriend). He denies having loss of control of his bladder or bowel. No tongue bites. He states that he has been having nausea and threw up 3 or 4 times before coming into the hospital. He was also complaining of lower abdominal pain. Patient reports having 3-4 loose watery bowel movements since being in the hospital. He complains of loss of appetite. He denies having any chest pain or palpitations. No cough or difficulty in breathing. Mild lower abdominal pain. No dysuria or hematuria. No swelling of his lower extremities. No fevers chills or rhinitis. In the emergency department patient had high bloo d pressure readings and he was started on his home medications and admitted for further management. Hospital course-patient was restarted on all his home medications and his blood pressure trended down. He developed nausea vomiting and diarrhea, which is probably viral gastroenteritis. He was given symptomatic management with IV fluids and Zofran. His creatinine trended up to 1.6. He was continued on IV fluids and his symptoms resolved. Creatinine showed an downtrend this morning. Patient states that he had only 2 bowel movements since yesterday morning. He has been eating and drinking fine. Does not report any nausea or vomiting. He was comfortably sleeping with his girlfriend when I went to check on him in the room. He states that he is tired to go home. Vital Signs - 8 hr 08/28/19 08:30 Temperature 97.6 F Pulse Rate [ 71 Right Pulse Oximetery] Respiratory 17 Rate Blood Pressure 130/79 [Right Arm] O2 Sat by Pulse 97 Oximetry PHYSICAL EXAM GEN. APPEARANCE: alert, in no apparent distress HEENT : No pallor. No icterus. Mucous membranes dry. No JVD. No thyromegaly. RESPIRATORY EXAM: Bilateral breath sounds are positive. No wheeze or crackles. CARDIOVASCULAR EXAM: S1 and S2 heard no additional sounds. GI/ABDOMINAL EXAM: soft, normal bowel sounds. Mild tenderness in the lower abdominal area. No CVA tenderness. EXTREMITIES EXAM: No pedal edema. No calf tenderness. NEUROLOGICAL EXAM: alert, oriented X3, no focal deficits PSYCHIATRIC EXAM: normal affect, normal mood SKIN EXAM: warm, dry, intact, normal color. Absent: rash Labs from this morning showing sodium of 140, pretension 4.1, chloride 109, BNP 16, creatinine 1.5. DISCHARGE DIAGNOSIS Seizures -secondary to noncompliance with medications Acute kidney injury - possibly due to diarrhea Hypertensive urgency Gastroenteritis Anxiety with depression Schizophrenia PTSD FOLLOW-up: Patient is advised to follow-up with his primary care physician at [facility] clinic in 2-3 days. He'll need a repeat basic metabolic panel. Patient is being discharged home in a stable condition. Discussed in detail the importance of adherence to his antiseizure medications and also his hypertension medications. Also discussed that he cannot be driving for 6 months after having a seizure as per the [place] law. More than 30 minutes spent towards the discharge of the patient. Patient Condition at Discharge: Fair Plan - Discharge Summary Discharge Rx Participant: No New Discharge Prescriptions: No Action amLODIPine [Norvasc] 10 mg PO DAILY Propranolol HCl [Propranolol HCl ER] 160 mg PO BID Valsartan/Hydrochlorothiazide [Valsartan-Hctz 160-12.5 mg Tab] 1 tab PO DAILY Topiramate [Topamax] 100 mg PO BID QUEtiapine [SEROquel] 25 mg PO BID Sertraline [Zoloft] 200 mg PO DAILY Discharge Medication List amLODIPine [Norvasc] 10 mg PO DAILY 08/18/18 [History] Propranolol HCl [Propranolol HCl ER] 160 mg PO BID 11/26/18 [History] Valsartan/Hydrochlorothiazide [Valsartan-Hctz 160-12.5 mg Tab] 1 tab PO DAILY 11/26/18 [History] QUEtiapine [SEROquel] 25 mg PO BID 08/25/19 [History] Sertraline [Zoloft] 200 mg PO DAILY 08/25/19 [History] Topiramate [Topamax] 100 mg PO BID 08/25/19 [History] Follow up Appointment(s)/Referral(s): [facility] [Primary Care Provider] - 09/01/19 8:30 am (Wednesday) Patient Instructions/Handouts: How to Stop Smoking (DC)
== END 2019-08-28 14:17 | disposition home or self-care (01) | DRG 101 ==
LOC: EC 15:49 → EEVIPCON 15:49 → 3SCARD 22:29
PROVIDERS: ADMIT Internal Medicine; ATTEND Internal Medicine
DX: G40.509 Epileptic seizures related to external causes, not intractable, without status epilepticus (principal); N17.9 Acute kidney failure, unspecified; F20.9 Schizophrenia, unspecified; R15.9 Full incontinence of feces; I16.0 Hypertensive urgency; A08.4 Viral intestinal infection, unspecified; F41.8 Other specified anxiety disorders; I10 Essential (primary) hypertension; T42.6X6A Underdosing of other antiepileptic and sedative-hypnotic drugs, initial encounter; T46.5X6A Underdosing of other antihypertensive drugs, initial encounter; F43.10 Post-traumatic stress disorder, unspecified; M54.81 Occipital neuralgia; R32 Unspecified urinary incontinence; F17.200 Nicotine dependence, unspecified, uncomplicated; Z79.899 Other long term (current) drug therapy; Z91.120 Patient's intentional underdosing of medication regimen due to financial hardship; Z86.14 Personal history of Methicillin resistant Staphylococcus aureus infection; Z86.010 Personal history of colon polyps; Y92.009 Unspecified place in unspecified non-institutional (private) residence as the place of occurrence of the external cause; Z81.8 Family history of other mental and behavioral disorders
CPT/HCPCS: 36415; 80048; 80053; 80201; 80306; 81001; 83735; 84484; 85025; 93005; 96361; 96374; 96375; 96376; 99285

== ENCOUNTER 2019-09-08 06:29 | Emergency (ER) | payer OTHER ==
[2019-09-08 06:38] VITALS: BP 140/88; PULSE 95; RESP 20; TEMP 98.4
[2019-09-08] MEDS ORDERED: KETOROLAC 30 MG/ML 1 ML VIAL IM STA (07:10)
--- NOTE | 2019-09-08 07:16 | ED ---
General Adult HPI - General Chief complaint: Headache Stated complaint: Headache Time Seen by Provider: 09/08/19 06:40 Source: patient, RN notes reviewed Mode of arrival: ambulatory Limitations: no limitations - History of Present Illness Initial comments: 34-year-old male with a past medical history of occipital neuralgia, hypertension, seizure disorder presents to the emergency department for right- sided headache. Patient has a history of occipital neuralgia. States that this headache feels exactly the same. States it radiates up to the right side of his head. States he sees a neurologist for this. Denies neck pain. Denies fevers or chills. Patient requesting Tylenol 3 prescription.Patient has no other complaints at this time including shortness of breath, chest pain, abdominal pain, nausea or vomiting, headache, or visual changes. - Related Data Previous Rx's Medication Instructions Recorded Propranolol HCl [Propranolol HCl 160 mg PO BID 30 Days #60 cap 08/28/19 ER] QUEtiapine [SEROquel] 25 mg PO BID 30 Days #60 tab 08/28/19 Sertraline [Zoloft] 200 mg PO DAILY 30 Days #30 tab 08/28/19 Topiramate [Topamax] 100 mg PO BID 30 Days #60 tab 08/28/19 Valsartan/Hydrochlorothiazide 1 tab PO DAILY 30 Days #30 tab 08/28/19 [Valsartan-Hctz 160-12.5 mg Tab] amLODIPine [Norvasc] 10 mg PO DAILY 30 Days #30 tab 08/28/19 Acetaminophen [Tylenol] 500 mg PO Q4-6H PRN #20 tab 09/08/19 Allergies Allergy/AdvReac Type Severity Reaction Status Date / Time caffeine AdvReac MAKES Verified 08/25/19 17:37 SEIZURES MORE SEVERE carbamazepine [From Tegretol] AdvReac MAKES Verified 08/25/19 17:37 SEIZURES MORE SEVERE Review of Systems ROS Statement: Those systems with pertinent positive or pertinent negative responses have been documented in the HPI. ROS Other: All systems not noted in ROS Statement are negative. Past Medical History Past Medical History: Hypertension, Seizure Disorder Additional Past Medical History / Comment(s): occipital neuralgia History of Any Multi-Drug Resistant Organisms: MRSA Date of last positivie culture/infection: 2012 MDRO Source:: left leg Past Surgical History: No Surgical Hx Reported Additional Past Surgical History / Comment(s): polyps removed during colonoscopy Past Psychological History: Anxiety, Bipolar, Depression, PTSD, Schizophrenia Smoking Status: Current every day smoker Past Alcohol Use History: None Reported Past Drug Use History: Marijuana - Past Family History Father Family Medical History: Unable to Obtain Mother Additional Family Medical History / Comment(s): schizophrenia, bipolar General Exam Limitations: no limitations General appearance: alert, in no apparent distress Head exam: Present: atraumatic Eye exam: Present: normal appearance, PERRL, EOMI. Absent: scleral icterus, conjunctival injection, periorbital swelling ENT exam: Present: normal exam, mucous membranes moist Neck exam: Present: normal inspection, full ROM. Absent: tenderness, meningismus, lymphadenopathy Respiratory exam: Present: normal lung sounds bilaterally. Absent: respiratory distress, wheezes, rales, rhonchi, stridor Cardiovascular Exam: Present: regular rate, normal rhythm, normal heart sounds. Absent: systolic murmur, diastolic murmur, rubs, gallop, clicks Neurological exam: Present: alert, oriented X3, normal gait, other (gcs 15) Psychiatric exam: Present: normal affect, normal mood Course Vital Signs 09/08/19 06:34 Temperature 98.4 F Pulse Rate 95 Respiratory 20 Rate Blood Pressure 140/88 O2 Sat by Pulse 97 Oximetry Medical Decision Making - Medical Decision Making Patient is a well-appearing 34-year-old male. He is not in any distress. No nuchal rigidity. Patient has right-sided headache consistent with his occipital neuralgia. States this came on gradually throughout the day yesterday. Patient is requesting Tylenol 3 prescription. I did discuss with patient that I will give him Toradol for pain here in the emergency department. I cannot give him a percent of her Tylenol 3 but Elliott a prescription for regular Tylenol as patient has not tried anything for this headache. He will follow up with primary care in 1-2 days. He will return if he has any worsening symptoms. Disposition Clinical Impression: Headache Disposition: HOME SELF-CARE Condition: Good Instructions (If sedation given, give patient instructions): Acute Headache (ED) Additional Instructions: Please take Motrin and Tylenol for pain. Please follow-up with your neurologist in 1-2 days. If you're having any worsening symptoms return to the emergency department. Prescriptions: Acetaminophen [Tylenol] 500 mg PO Q4-6H PRN #20 tab PRN Reason: Pain Is patient prescribed a controlled substance at d/c from ED?: No Referrals: [facility] [Primary Care Provider] - 1-2 days Time of Disposition: 07:15
== END 2019-09-08 07:23 | disposition home or self-care (01) ==
LOC: EC 06:29
DX: M54.81 Occipital neuralgia (principal); I10 Essential (primary) hypertension; F17.200 Nicotine dependence, unspecified, uncomplicated; Z91.018 Allergy to other foods; Z88.8 Allergy status to other drugs, medicaments and biological substances; Z86.14 Personal history of Methicillin resistant Staphylococcus aureus infection
CPT/HCPCS: 96372; 99283

== ENCOUNTER 2019-11-05 17:43 | Emergency (ER) | payer OTHER ==
[2019-11-05 17:47] VITALS: RESP 18; TEMP 98.1
[2019-11-05] MEDS ORDERED: ONDANSETRON 4 MG/2 ML VIAL IVP STA (19:10)
[2019-11-05] MEDS ORDERED: SODIUM CHLORIDE 0.9% 2,000 ML IV STA (19:10)
[2019-11-05] MEDS ORDERED: MORPHINE SULFATE 4 MG/ML SYRINGE IVP STA (19:11)
[2019-11-05] MEDS ORDERED: TOPIRAMATE 100 MG TAB PO STA (19:11)
--- NOTE | 2019-11-05 19:21 | ED ---
Nausea/Vomiting/Diarrhea HPI - General Chief complaint: Nausea/Vomiting/Diarrhea Stated complaint: Vomiting/Diarrhea Time Seen by Provider: 11/05/19 19:05 Source: patient Mode of arrival: ambulatory Limitations: no limitations - History of Present Illness Initial comments: 34-year-old male patient presents to the emergency department today for evaluation of vomiting, diarrhea, abdominal pain for the last 3 days. Patient states he is been unable to keep down any food, fluids, or his medications. States he takes medication for seizures, occipital neuralgia, and high blood pressure. Patient states he is having mid epigastric abdominal pain that feels like nonsense and tightening. Denies any radiation of the pain through to his back. Denies any hematochezia, melena, or hematemesis. Denies fever or chills. Denies any seizure activity. Denies any recent travel or sick contacts. Denies recent antibiotic use. Patient denies any recent rash, shortness breath, chest pain, back pain, numbness, tingling, dizziness, weakness, hematuria, dysuria, urinary urgency, urinary frequency, headache, visual changes, or any other complaints. - Related Data Previous Rx's Medication Instructions Recorded Propranolol HCl [Propranolol HCl 160 mg PO BID 30 Days #60 cap 08/28/19 ER] QUEtiapine [SEROquel] 25 mg PO BID 30 Days #60 tab 08/28/19 Sertraline [Zoloft] 200 mg PO DAILY 30 Days #30 tab 08/28/19 Topiramate [Topamax] 100 mg PO BID 30 Days #60 tab 08/28/19 Valsartan/Hydrochlorothiazide 1 tab PO DAILY 30 Days #30 tab 08/28/19 [Valsartan-Hctz 160-12.5 mg Tab] amLODIPine [Norvasc] 10 mg PO DAILY 30 Days #30 tab 08/28/19 Acetaminophen [Tylenol] 500 mg PO Q4-6H PRN #20 tab 09/08/19 Ondansetron [Zofran ODT] 4 mg PO Q8HR PRN #10 tab 11/05/19 Allergies Allergy/AdvReac Type Severity Reaction Status Date / Time caffeine AdvReac MAKES Verified 11/05/19 17:47 SEIZURES MORE SEVERE carbamazepine [From Tegretol] AdvReac MAKES Verified 11/05/19 17:47 SEIZURES MORE SEVERE Review of Systems ROS Statement: Those systems with pertinent positive or pertinent negative responses have been documented in the HPI. ROS Other: All systems not noted in ROS Statement are negative. Past Medical History Past Medical History: Hypertension, Seizure Disorder Additional Past Medical History / Comment(s): occipital neuralgia History of Any Multi-Drug Resistant Organisms: MRSA Date of last positivie culture/infection: 2012 MDRO Source:: left leg Past Surgical History: No Surgical Hx Reported Additional Past Surgical History / Comment(s): polyps removed during colonoscopy Past Psychological History: Anxiety, Bipolar, Depression, PTSD, Schizophrenia Smoking Status: Current every day smoker Past Alcohol Use History: None Reported Past Drug Use History: Marijuana - Past Family History Father Family Medical History: Unable to Obtain Mother Additional Family Medical History / Comment(s): schizophrenia, bipolar General Exam Limitations: no limitations General appearance: alert, in no apparent distress, other (This is a well- developed, well-nourished adult male patient in no acute distress. Vital signs upon presentation are temperature 98.1F, pulse 85, respirations 18, blood pressure 162/93, pulse ox 97% on room air.) Eye exam: Present: normal appearance, PERRL, EOMI. Absent: scleral icterus, conjunctival injection, periorbital swelling ENT exam: Present: normal exam, normal oropharynx, mucous membranes moist Respiratory exam: Present: normal lung sounds bilaterally. Absent: respiratory distress, wheezes, rales, rhonchi, stridor Cardiovascular Exam: Present: regular rate, normal rhythm, normal heart sounds. Absent: systolic murmur, diastolic murmur, rubs, gallop, clicks GI/Abdominal exam: Present: soft, tenderness (Generalized, worse over the midepigastric region), normal bowel sounds. Absent: distended, guarding, rebound, rigid Neurological exam: Present: alert, oriented X3, CN II-XII intact Psychiatric exam: Present: normal affect, normal mood Skin exam: Present: warm, dry, intact, normal color. Absent: rash Course Vital Signs 11/05/19 11/05/19 17:45 21:29 Temperature 98.1 F 98.1 F Pulse Rate 85 80 Respiratory 18 18 Rate Blood Pressure 162/93 169/92 O2 Sat by Pulse 97 100 Oximetry Medical Decision Making - Medical Decision Making 34-year-old male patient presents to the emergency department today for evaluation of vomiting and diarrhea 3 days. Physical examination reveals a soft nontender abdomen. Labs reviewed and are unremarkable. There are ketones in the urine. He is given 2 L of normal saline. Zofran. He is able to tolerate oral intake prior to discharge. Was given his seizure medication. Is instructed to follow-up with his primary care physician for recheck in 1-2 days. Given Zofran for home. Return parameters were discussed in detail. He verbalizes understanding and agrees with this plan. - Lab Data Result diagrams: 11/05/19 19:25 11/05/19 19:25 Lab Results 11/05/19 11/05/19 11/05/19 Range/Units 19:25 19:25 19:25 WBC 5.7 (3.8-10.6) k/uL RBC 5.78 (4.30-5.90) m/uL Hgb 15.7 (13.0-17.5) gm/dL Hct 48.0 (39.0-53.0) % MCV 83.0 (80.0-100.0) fL MCH 27.2 (25.0-35.0) pg MCHC 32.8 (31.0-37.0) g/dL RDW 13.2 (11.5-15.5) % Plt Count 195 (150-450) k/uL Neutrophils % 53 % Lymphocytes % 33 % Monocytes % 10 % Eosinophils % 1 % Basophils % 1 % Neutrophils # 3.0 (1.3-7.7) k/uL Lymphocytes # 1.9 (1.0-4.8) k/uL Monocytes # 0.6 (0-1.0) k/uL Eosinophils # 0.1 (0-0.7) k/uL Basophils # 0.1 (0-0.2) k/uL Sodium 141 (137-145) mmol/L Potassium 3.5 (3.5-5.1) mmol/L Chloride 106 (98-107) mmol/L Carbon Dioxide 23 (22-30) mmol/L Anion Gap 12 mmol/L BUN 14 (9-20) mg/dL Creatinine 1.41 H (0.66-1.25) mg/dL Est GFR (CKD-EPI)AfAm 75 (>60 ml/min/1.73 sqM) Est GFR (CKD-EPI)NonAf 65 (>60 ml/min/1.73 sqM) Glucose 106 H (74-99) mg/dL Calcium 10.1 (8.4-10.2) mg/dL Total Bilirubin 1.3 (0.2-1.3) mg/dL AST 32 (17-59) U/L ALT 26 (4-49) U/L Alkaline Phosphatase 74 (38-126) U/L Total Protein 8.6 H (6.3-8.2) g/dL Albumin 5.2 H (3.5-5.0) g/dL Lipase 58 (23-300) U/L Urine Color Yellow Urine Appearance Clear (Clear) Urine pH 6.5 (5.0-8.0) Ur Specific [place] 1.028 (1.001-1.035) Urine Protein 1+ H (Negative) Urine Glucose (UA) Negative (Negative) Urine Ketones 2+ H (Negative) Urine Blood Negative (Negative) Urine Nitrite Negative (Negative) Urine Bilirubin Negative (Negative) Urine Urobilinogen 2.0 (<2.0) mg/dL Ur Leukocyte Esterase Negative (Negative) Urine RBC 1 (0-5) /hpf Urine WBC 2 (0-5) /hpf Ur Squamous Epith Cells <1 (0-4) /hpf Hyaline Casts 20 H (0-2) /lpf Urine Mucus Many H (None) /hpf - Radiology Data Radiology results: report reviewed, image reviewed KUB was obtained. Report reviewed in its entirety. Impression by Dr. Palacio shows nonacute abdomen. No adverse change. Disposition Clinical Impression: Vomiting and diarrhea Disposition: HOME SELF-CARE Condition: Good Instructions (If sedation given, give patient instructions): Acute Nausea and Vomiting (ED), Acute Diarrhea (ED) Additional Instructions: Start with clear liquid diet and advance as tolerated. Follow-up with your primary care physician for recheck in 1-2 days. Return to the emergency department immediately for any new, worsening, or concerning symptoms. Prescriptions: Ondansetron [Zofran ODT] 4 mg PO Q8HR PRN #10 tab PRN Reason: Nausea Is patient prescribed a controlled substance at d/c from ED?: No Referrals: [facility] [Primary Care Provider] - 1-2 days Time of Disposition: 21:41
[2019-11-05 19:48] LABS: Appearance,Urine Clear (Clear); Bilirubin,Urine Negative (Negative); Blood,Urine Negative (Negative); Color,Urine Yellow; Glucose,Urine (UA) Negative (Negative); Hyaline Casts,Urine 20 /lpf (0-2); Ketones,Urine 2+ (Negative); Leukocyte Esterase,Urine Negative (Negative); Mucus,Urine Many /hpf; Nitrite,Urine Negative (Negative); PH, Urine 6.5 (5.0-8.0); Protein,Urine 1+ (Negative); RBC,Urine 1 /hpf (0-5); Specific Gravity,Urine 1.028 (1.001-1.035); Squamous Epithelial Cell,Urine <1 /hpf (0-4); WBC,Urine 2 /hpf (0-5)
[2019-11-05 20:01] LABS: Albumin 5.2 g/dL (3.5-5.0); Calcium 10.1 mg/dL (8.4-10.2); Potassium 3.5 mmol/L (3.5-5.1); Total Bilirubin 1.3 mg/dL (0.2-1.3); Total Protein 8.6 g/dL (6.3-8.2)
[2019-11-05 20:02] LABS: Basophils # (A) 0.1 k/uL (0-0.2); Basophils % (A) 1 %; Eosinophils # (A) 0.1 k/uL (0-0.7); Eosinophils % (A) 1 %; HGB 15.7 gm/dL (13.0-17.5); Lymphocytes # (A) 1.9 k/uL (1.0-4.8); Lymphocytes % (A) 33 %; MCH 27.2 pg (25.0-35.0); MCHC 32.8 g/dL (31.0-37.0); Mean Platelet Volume 9.3; Monocytes # (A) 0.6 k/uL (0-1.0); Monocytes % (A) 10 %; Neutrophils % (A) 53 %; Platelet Count 195 k/uL (150-450); RBC 5.78 m/uL (4.30-5.90); RDW 13.2 % (11.5-15.5); WBC 5.7 k/uL (3.8-10.6)
--- NOTE | 2019-11-05 20:31 | XR ---
EXAMINATION TYPE: XR KUB DATE OF EXAM: 11/05/2019 COMPARISON: 03/15/2013 HISTORY: Abdominal pain TECHNIQUE: 2 views upright FINDINGS: There is no sign of intestinal obstruction or pneumoperitoneum. Fecal pattern is normal. Th ere is no sign of a mass. There are no pathologic calcifications over the kidneys. IMPRESSION: Nonacute abdomen. No adverse change.
[2019-11-05 21:30] VITALS: BP 169/92; PULSE 80
== END 2019-11-05 21:55 | disposition home or self-care (01) ==
LOC: EC 17:43
DX: R11.2 Nausea with vomiting, unspecified (principal); R19.7 Diarrhea, unspecified; R10.13 Epigastric pain; I10 Essential (primary) hypertension; F17.200 Nicotine dependence, unspecified, uncomplicated; Z88.8 Allergy status to other drugs, medicaments and biological substances; Z91.018 Allergy to other foods
CPT/HCPCS: 36415; 80053; 83690; 85025; 81001; 74018; 99284; 96374; 96375; 96361 ×2; J2270; J2405

== ENCOUNTER 2019-11-25 05:40 | Emergency (ER) | payer OTHER ==
[2019-11-25 05:54] VITALS: TEMP 98.3
[2019-11-25] MEDS ORDERED: AZITHROMYCIN 500 MG TAB PO STA (05:59)
[2019-11-25] MEDS ORDERED: cefTRIAXone 250 MG VIAL IM STA (05:59)
--- NOTE | 2019-11-25 06:24 | ED ---
Male Urogenital HPI - General Chief complaint: Urogenital Stated complaint: fatigue Time Seen by Provider: 11/25/19 05:58 Source: patient, family Mode of arrival: ambulatory Limitations: no limitations - History of Present Illness Initial comments: Mary Ellen is a 34-year-old male who presents to the ER today for treatment of possible exposure sexual transmitted infection. Patient's significant other checked in with vaginal discharge or concern for exposure sexual transmitted infection and requests that he check in be treated as well. Patient denies any symptoms or complaints. - Related Data Previous Rx's Medication Instructions Recorded Propranolol HCl [Propranolol HCl 160 mg PO BID 30 Days #60 cap 08/28/19 ER] QUEtiapine [SEROquel] 25 mg PO BID 30 Days #60 tab 08/28/19 Sertraline [Zoloft] 200 mg PO DAILY 30 Days #30 tab 08/28/19 Topiramate [Topamax] 100 mg PO BID 30 Days #60 tab 08/28/19 Valsartan/Hydrochlorothiazide 1 tab PO DAILY 30 Days #30 tab 08/28/19 [Valsartan-Hctz 160-12.5 mg Tab] amLODIPine [Norvasc] 10 mg PO DAILY 30 Days #30 tab 08/28/19 Acetaminophen [Tylenol] 500 mg PO Q4-6H PRN #20 tab 09/08/19 Ondansetron [Zofran ODT] 4 mg PO Q8HR PRN #10 tab 11/05/19 Allergies Allergy/AdvReac Type Severity Reaction Status Date / Time caffeine AdvReac MAKES Verified 11/25/19 05:54 SEIZURES MORE SEVERE carbamazepine [From Tegretol] AdvReac MAKES Verified 11/25/19 05:54 SEIZURES MORE SEVERE Review of Systems ROS Statement: Those systems with pertinent positive or pertinent negative responses have been documented in the HPI. ROS Other: All systems not noted in ROS Statement are negative. Past Medical History Past Medical History: Hypertension, Seizure Disorder Additional Past Medical History / Comment(s): occipital neuralgia History of Any Multi-Drug Resistant Organisms: MRSA Date of last positivie culture/infection: 2012 MDRO Source:: left leg Past Surgical History: No Surgical Hx Reported Additional Past Surgical History / Comment(s): polyps removed during colonoscopy Past Psychological History: Anxiety, Bipolar, Depression, PTSD, Schizophrenia Smoking Status: Current every day smoker Past Alcohol Use History: None Reported Past Drug Use History: Marijuana - Past Family History Father Family Medical History: Unable to Obtain Mother Additional Family Medical History / Comment(s): schizophrenia, bipolar General Exam - General Exam Comments Initial Comments: Physical Exam GENERAL: Patient is well-developed and well-nourished. Patient is nontoxic and well-hydrated and is in no distress. HENT: Normocephalic, Atraumatic. EYES: PERRL, EOMI PULMONARY: Unlabored respirations. CARDIOVASCULAR: RRR Warm and well perfused extremities ABDOMEN: Non-distended SKIN: No rashes or bruising : Deferred NEUROLOGIC: Alert and oriented Normal speech Normal gait MUSCULOSKELETAL: Moving all extremities with no apparent injury PSYCHIATRIC: No SI/HI Limitations: no limitations Course Vital Signs 11/25/19 05:50 Temperature 98.3 F Pulse Rate 70 Respiratory 18 Rate Blood Pressure 158/88 O2 Sat by Pulse 97 Oximetry Medical Decision Making - Medical Decision Making Patient was seen and evaluated, history was obtained patient, patient provided a urine sample for gonorrhea/chlamydia testing Patient was empirically treated for discharge home - Lab Data Lab Results 11/25/19 Range/Units 06:30 Urine Color Yellow Urine Appearance Cloudy (Clear) Urine pH 7.0 (5.0-8.0) Ur Specific [place] 1.026 (1.001-1.035) Urine Protein 1+ H (Negative) Urine Glucose (UA) Negative (Negative) Urine Ketones Negative (Negative) Urine Blood Negative (Negative) Urine Nitrite Negative (Negative) Urine Bilirubin Negative (Negative) Urine Urobilinogen 2.0 (<2.0) mg/dL Ur Leukocyte Esterase Negative (Negative) Urine WBC 3 (0-5) /hpf Amorphous Sediment Rare H (None) /hpf Urine Mucus Moderate H (None) /hpf Disposition Clinical Impression: Exposure to sexually transmitted disease (STD) Disposition: HOME SELF-CARE Condition: Stable Instructions (If sedation given, give patient instructions): Safe Sex (ED) Is patient prescribed a controlled substance at d/c from ED?: No Referrals: [facility] [Primary Care Provider] - 1-2 days
[2019-11-25 06:42] LABS: Amorphous Sediment,Urine Rare /hpf; Appearance,Urine Cloudy (Clear); Bilirubin,Urine Negative (Negative); Blood,Urine Negative (Negative); Color,Urine Yellow; Glucose,Urine (UA) Negative (Negative); Ketones,Urine Negative (Negative); Leukocyte Esterase,Urine Negative (Negative); Mucus,Urine Moderate /hpf; Nitrite,Urine Negative (Negative); Protein,Urine 1+ (Negative); Specific Gravity,Urine 1.026 (1.001-1.035); WBC,Urine 3 /hpf (0-5)
[2019-11-25 07:05] VITALS: BP 128/83; PULSE 81; RESP 14
[2019-11-27 08:15] LABS: C. trachomatis,PCR Negative (Neg,Equiv); Chlamydia trachomatis Source Urine
[2019-11-27 08:33] LABS: N. gonorrhoeae,PCR Negative (Neg,Equiv); Neisseria Source Urine
== END 2019-11-25 07:05 | disposition home or self-care (01) ==
LOC: EC 05:40
DX: Z20.2 Contact with and (suspected) exposure to infections with a predominantly sexual mode of transmission (principal); I10 Essential (primary) hypertension; F17.200 Nicotine dependence, unspecified, uncomplicated; Z88.8 Allergy status to other drugs, medicaments and biological substances; Z91.018 Allergy to other foods; Z86.14 Personal history of Methicillin resistant Staphylococcus aureus infection
CPT/HCPCS: 96372; 99283; 81001; 87491; 87591; J0696

== ENCOUNTER 2019-12-21 18:21 | Emergency (ER) | payer OTHER ==
[2019-12-21 18:41] VITALS: TEMP 98.3
[2019-12-21 19:08] VITALS: RESP 20
[2019-12-21] MEDS ORDERED: SODIUM CHLORIDE 0.9% 500 ML 500 ML IV STA (19:29)
[2019-12-21] MEDS ORDERED: IPRATROPIUM-ALBUTEROL 3 ML NEB INHALATION STA (19:30)
[2019-12-21] MEDS ORDERED: methylPREDNISolone SOD SUCCI 125 MG/2 ML VIAL IV STA (19:30)
--- NOTE | 2019-12-21 19:32 | ED ---
General Adult HPI - General Chief complaint: Shortness of Breath Stated complaint: Chest Pain Time Seen by Provider: 12/21/19 18:54 Source: patient, EMS Mode of arrival: EMS - History of Present Illness Initial comments: 34-year-old male patient presents to the emergency department today for evaluation of cough, shortness of breath, and chest pain. Patient states symptoms started around 5:15 this afternoon. States he is coughing up clear mucus. States his pain is substernal and does radiate through to his back. Patient states he does feel short of breath. Denies any hemoptysis. States he has felt feverish and chilled. Denies any recent travel or sick contacts. Did not get a flu vaccine this season. [facility]. Patient denies any recent rash, abdominal pain, nausea, vomiting, diarrhea, constipation, back pain, numbness, tingling, dizziness, weakness, hematuria, dysuria, urinary urgency, urinary frequency, headache, visual changes, or any other complaints. Patient does have history of hypertension, reporting high blood pressures. States he was told by his physician he needs to see a customer experience retail clerk, but he is unsure why. - Related Data Previous Rx's Medication Instructions Recorded Propranolol HCl [Propranolol HCl 160 mg PO BID 30 Days #60 cap 08/28/19 ER] QUEtiapine [SEROquel] 25 mg PO BID 30 Days #60 tab 08/28/19 Sertraline [Zoloft] 200 mg PO DAILY 30 Days #30 tab 08/28/19 Topiramate [Topamax] 100 mg PO BID 30 Days #60 tab 08/28/19 Valsartan/Hydrochlorothiazide 1 tab PO DAILY 30 Days #30 tab 08/28/19 [Valsartan-Hctz 160-12.5 mg Tab] amLODIPine [Norvasc] 10 mg PO DAILY 30 Days #30 tab 08/28/19 Acetaminophen [Tylenol] 500 mg PO Q4-6H PRN #20 tab 09/08/19 Ondansetron [Zofran ODT] 4 mg PO Q8HR PRN #10 tab 11/05/19 Albuterol Sulfate [Proair Hfa] 1 - 2 puff INHALATION Q6HR PRN #1 12/21/19 inhaler guaiFENesin-DM 600/30MG [Mucinex 2 each PO Q12HR PRN #20 tab.er.12h 12/21/19 Dm] predniSONE 50 mg PO DAILY #5 tablet 12/21/19 Allergies Allergy/AdvReac Type Severity Reaction Status Date / Time caffeine AdvReac MAKES Verified 11/25/19 05:54 SEIZURES MORE SEVERE carbamazepine [From Tegretol] AdvReac MAKES Verified 11/25/19 05:54 SEIZURES MORE SEVERE Review of Systems ROS Statement: Those systems with pertinent positive or pertinent negative responses have been documented in the HPI. ROS Other: All systems not noted in ROS Statement are negative. Past Medical History Past Medical History: Hypertension, Seizure Disorder Additional Past Medical History / Comment(s): occipital neuralgia History of Any Multi-Drug Resistant Organisms: MRSA Date of last positivie culture/infection: 2012 MDRO Source:: left leg Past Surgical History: No Surgical Hx Reported Additional Past Surgical History / Comment(s): polyps removed during colonoscopy Past Psychological History: Anxiety, Bipolar, Depression, PTSD, Schizophrenia Smoking Status: Current every day smoker Past Alcohol Use History: None Reported Past Drug Use History: Marijuana - Past Family History Father Family Medical History: Unable to Obtain Mother Additional Family Medical History / Comment(s): schizophrenia, bipolar General Exam General appearance: alert, in no apparent distress, other (Physical well- developed, well-nourished adult male patient in no acute distress. Vital signs upon presentation are temperature 98.3F, pulse 88, respirations 18, blood pressure 151/103, pulse ox 97% on room air.) Eye exam: Present: normal appearance, PERRL, EOMI. Absent: scleral icterus, conjunctival injection, periorbital swelling ENT exam: Present: normal exam, normal oropharynx, mucous membranes moist Respiratory exam: Present: wheezes (Diffuse x-ray wheezing noted in the posterior lung). Absent: respiratory distress, rales, rhonchi, stridor Cardiovascular Exam: Present: regular rate, normal rhythm, normal heart sounds. Absent: systolic murmur, diastolic murmur, rubs, gallop, clicks GI/Abdominal exam: Present: soft, normal bowel sounds. Absent: distended, tenderness, guarding, rebound, rigid Neurological exam: Present: alert, oriented X3, CN II-XII intact Psychiatric exam: Present: normal affect, normal mood Skin exam: Present: warm, dry, intact, normal color. Absent: rash Course Vital Signs 12/21/19 12/21/19 12/21/19 18:31 19:06 20:42 Temperature 98.3 F Pulse Rate 88 83 Respiratory 18 20 20 Rate Blood Pressure 151/103 154/120 O2 Sat by Pulse 97 96 Oximetry 12/21/19 12/21/19 12/21/19 21:30 21:40 23:42 Temperature Pulse Rate 84 84 86 Respiratory 20 Rate Blood Pressure 144/95 O2 Sat by Pulse 98 Oximetry EKG Findings - EKG Comments: EKG Findings:: EKG obtained at 1840 shows normal sinus rhythm with a ventricular rate of 88, LA interval 166, QRS duration 100, QT 358, QTC 433. No evidence of ST elevation or depression. Medical Decision Making - Medical Decision Making 34-year-old male patient presents to the emergency department today for evaluation of cough, shortness of breath, chest pain. Physical examination does reveal generalized diffuse wheezing in the posterior lung fox. Labs reviewed and are unremarkable. Troponin is negative. Chest x-ray shows no acute c ardiopulmonary process. Patient did receive IV steroids and breathing treatment while here in the department. Upon reevaluation does report improvement of symptoms. He will be discharged to follow-up with his primary care physician for recheck in 1-2 days. He'll be treated for acute bronchitis with steroids, inhaler, and Mucinex. Return parameters were discussed in detail. He verbalizes understanding and agrees with this plan. - Lab Data Result diagrams: 12/21/19 19:56 12/21/19 19:56 Lab Results 12/21/19 12/21/19 12/21/19 Range/Units 18:37 19:56 19:56 WBC 4.9 (3.8-10.6) k/uL RBC 5.70 (4.30-5.90) m/uL Hgb 15.6 (13.0-17.5) gm/dL Hct 46.7 (39.0-53.0) % MCV 82.0 (80.0-100.0) fL MCH 27.4 (25.0-35.0) pg MCHC 33.4 (31.0-37.0) g/dL RDW 13.2 (11.5-15.5) % Plt Count 200 (150-450) k/uL Neutrophils % 63 % Lymphocytes % 26 % Monocytes % 6 % Eosinophils % 2 % Basophils % 0 % Neutrophils # 3.1 (1.3-7.7) k/uL Lymphocytes # 1.3 (1.0-4.8) k/uL Monocytes # 0.3 (0-1.0) k/uL Eosinophils # 0.1 (0-0.7) k/uL Basophils # 0.0 (0-0.2) k/uL PT 10.3 (9.0-12.0) sec INR 1.0 (<1.2) APTT 23.1 (22.0-30.0) sec Sodium (137-145) mmol/L Potassium (3.5-5.1) mmol/L Chloride (98-107) mmol/L Carbon Dioxide (22-30) mmol/L Anion Gap mmol/L BUN (9-20) mg/dL Creatinine (0.66-1.25) mg/dL Est GFR (CKD-EPI)AfAm (>60 ml/min/1.73 sqM) Est GFR (CKD-EPI)NonAf (>60 ml/min/1.73 sqM) Glucose (74-99) mg/dL Plasma Lactic Acid Lenny (0.7-2.0) mmol/L Calcium (8.4-10.2) mg/dL Magnesium (1.6-2.3) mg/dL Total Bilirubin (0.2-1.3) mg/dL AST (17-59) U/L ALT (4-49) U/L Alkaline Phosphatase (38-126) U/L Troponin I (0.000-0.034) ng/mL Total Protein (6.3-8.2) g/dL Albumin (3.5-5.0) g/dL Influenza Type A RNA Not Detected (Not Detectd) Influenza Type B (PCR) Not Detected (Not Detectd) 12/21/19 12/21/19 12/21/19 Range/Units 19:56 19:56 19:56 WBC (3.8-10.6) k/uL RBC (4.30-5.90) m/uL Hgb (13.0-17.5) gm/dL Hct (39.0-53.0) % MCV (80.0-100.0) fL MCH (25.0-35.0) pg MCHC (31.0-37.0) g/dL RDW (11.5-15.5) % Plt Count (150-450) k/uL Neutrophils % % Lymphocytes % % Monocytes % % Eosinophils % % Basophils % % Neutrophils # (1.3-7.7) k/uL Lymphocytes # (1.0-4.8) k/uL Monocytes # (0-1.0) k/uL Eosinophils # (0-0.7) k/uL Basophils # (0-0.2) k/uL PT (9.0-12.0) sec INR (<1.2) APTT (22.0-30.0) sec Sodium 143 (137-145) mmol/L Potassium 4.3 (3.5-5.1) mmol/L Chloride 107 (98-107) mmol/L Carbon Dioxide 25 (22-30) mmol/L Anion Gap 11 mmol/L BUN 21 H (9-20) mg/dL Creatinine 1.51 H (0.66-1.25) mg/dL Est GFR (CKD-EPI)AfAm 69 (>60 ml/min/1.73 sqM) Est GFR (CKD-EPI)NonAf 60 (>60 ml/min/1.73 sqM) Glucose 101 H (74-99) mg/dL Plasma Lactic Acid Lenny 0.8 (0.7-2.0) mmol/L Calcium 9.5 (8.4-10.2) mg/dL Magnesium 2.4 H (1.6-2.3) mg/dL Total Bilirubin 0.8 (0.2-1.3) mg/dL AST 26 (17-59) U/L ALT 28 (4-49) U/L Alkaline Phosphatase 71 (38-126) U/L Troponin I <0.012 (0.000-0.034) ng/mL Total Protein 7.6 (6.3-8.2) g/dL Albumin 4.7 (3.5-5.0) g/dL Influenza Type A RNA (Not Detectd) Influenza Type B (PCR) (Not Detectd) - Radiology Data Radiology results: report reviewed, image reviewed Two-view x-ray of the chest is obtained. Report was reviewed in its entirety. Impression by Dr. Nilton Vee shows no acute process. Disposition Clinical Impression: Acute bronchitis, Chest pain Disposition: HOME SELF-CARE Condition: Good Instructions (If sedation given, give patient instructions): Chest Pain (ED), Acute Bronchitis (ED) Additional Instructions: Take medications as directed. Follow-up with your primary care physician for recheck in 1-2 days. Return to the emergency department immediately for any new, worsening, or concerning symptoms. Prescriptions: guaiFENesin-DM 600/30MG [Mucinex Dm] 2 each PO Q12HR PRN #20 tab.er.12h PRN Reason: Cough predniSONE 50 mg PO DAILY #5 tablet Albuterol Sulfate [Proair Hfa] 1 - 2 puff INHALATION Q6HR PRN #1 inhaler PRN Reason: Shortness Of Breath Is patient prescribed a controlled substance at d/c from ED?: No Referrals: [facility] [Primary Care Provider] - 1-2 days Time of Disposition: 21:52
[2019-12-21 20:08] LABS: Basophils % (A) 0 %; Eosinophils # (A) 0.1 k/uL (0-0.7); Eosinophils % (A) 2 %; HCT 46.7 % (39.0-53.0); HGB 15.6 gm/dL (13.0-17.5); Lymphocytes # (A) 1.3 k/uL (1.0-4.8); Lymphocytes % (A) 26 %; MCH 27.4 pg (25.0-35.0); MCHC 33.4 g/dL (31.0-37.0); Mean Platelet Volume 9.3; Monocytes # (A) 0.3 k/uL (0-1.0); Monocytes % (A) 6 %; Neutrophils # (A) 3.1 k/uL (1.3-7.7); Neutrophils % (A) 63 %; Platelet Count 200 k/uL (150-450); RDW 13.2 % (11.5-15.5); WBC 4.9 k/uL (3.8-10.6)
[2019-12-21 20:17] LABS: Partial Thromboplastin Time 23.1 sec (22.0-30.0); Prothrombin Time 10.3 sec (9.0-12.0)
[2019-12-21 20:27] LABS: Albumin 4.7 g/dL (3.5-5.0); Calcium 9.5 mg/dL (8.4-10.2); Magnesium 2.4 mg/dL (1.6-2.3); Potassium 4.3 mmol/L (3.5-5.1); Total Bilirubin 0.8 mg/dL (0.2-1.3); Total Protein 7.6 g/dL (6.3-8.2)
[2019-12-21] MEDS ORDERED: TOPIRAMATE 100 MG TAB PO STA (21:32)
[2019-12-21] MEDS ORDERED: cloNIDine HCL 0.1 MG TAB PO STA (21:32)
--- NOTE | 2019-12-21 21:32 | XR ---
EXAMINATION: XR chest 2V DATE AND TIME: 12/21/2019 9:24 PM CLINICAL INDICATION: PH[facility]; difficulty breathing TECHNIQUE: Departmental protocol COMPARISON: 06/03/2013 FINDINGS: The lungs are clear. The pleural spaces are negative. The cardiac silhouette is not enlarged. The remainder of the mediastinal silhouette is unremarkable. The skeletal structures and soft tissues are negative for acute findings. IMPRESSION: NO ACUTE PROCESS.
[2019-12-21 23:47] VITALS: BP 144/95; PULSE 86
== END 2019-12-21 23:40 | disposition home or self-care (01) ==
LOC: EC 18:21
DX: J20.9 Acute bronchitis, unspecified (principal); F17.200 Nicotine dependence, unspecified, uncomplicated; Z86.14 Personal history of Methicillin resistant Staphylococcus aureus infection; Z88.8 Allergy status to other drugs, medicaments and biological substances
CPT/HCPCS: 36415; 94640; 93005; 80053; 83605; 83735; 84484; 85025; 85610; 85730; 87502; 71046; 99285; 96374; 96361 ×2; J2930

== ENCOUNTER 2020-01-23 11:01 | Emergency (ER) | payer OTHER ==
[2020-01-23 11:18] VITALS: BP 148/78; PULSE 95; RESP 20; TEMP 97.9
[2020-01-23] MEDS ORDERED: metroNIDAZOLE 500 MG TAB PO STA (11:34)
--- NOTE | 2020-01-23 11:45 | ED ---
General Adult HPI - General Chief complaint: Urogenital Stated complaint: STD Concerns Time Seen by Provider: 01/23/20 11:21 Source: patient, RN notes reviewed Mode of arrival: ambulatory Limitations: no limitations - History of Present Illness Initial comments: Patient is a pleasant 34-year-old male presenting to the emergency Department with complaints of girlfriend being diagnosed with Trichomonas. Patient states he is symptom-free at this time and has no complaints. Patient denies any dysuria. No discharge. No fever or abdominal pain. Patient states his Zofran was diagnosed through her primary care physician. Patient was advised to come to seek treatment. - Related Data Previous Rx's Medication Instructions Recorded Propranolol HCl [Propranolol HCl 160 mg PO BID 30 Days #60 cap 08/28/19 ER] QUEtiapine [SEROquel] 25 mg PO BID 30 Days #60 tab 08/28/19 Sertraline [Zoloft] 200 mg PO DAILY 30 Days #30 tab 08/28/19 Topiramate [Topamax] 100 mg PO BID 30 Days #60 tab 08/28/19 Valsartan/Hydrochlorothiazide 1 tab PO DAILY 30 Days #30 tab 08/28/19 [Valsartan-Hctz 160-12.5 mg Tab] amLODIPine [Norvasc] 10 mg PO DAILY 30 Days #30 tab 08/28/19 Acetaminophen [Tylenol] 500 mg PO Q4-6H PRN #20 tab 09/08/19 Ondansetron [Zofran ODT] 4 mg PO Q8HR PRN #10 tab 11/05/19 Albuterol Sulfate [Proair Hfa] 1 - 2 puff INHALATION Q6HR PRN #1 12/21/19 inhaler guaiFENesin-DM 600/30MG [Mucinex 2 each PO Q12HR PRN #20 tab.er.12h 12/21/19 Dm] predniSONE 50 mg PO DAILY #5 tablet 12/21/19 Allergies Allergy/AdvReac Type Severity Reaction Status Date / Time caffeine AdvReac MAKES Verified 01/23/20 11:17 SEIZURES MORE SEVERE carbamazepine [From Tegretol] AdvReac MAKES Verified 01/23/20 11:17 SEIZURES MORE SEVERE Review of Systems ROS Statement: Those systems with pertinent positive or pertinent negative responses have been documented in the HPI. ROS Other: All systems not noted in ROS Statement are negative. Constitutional: Denies: fever Eyes: Denies: eye pain ENT: Denies: ear pain Respiratory: Denies: dyspnea Cardiovascular: Denies: chest pain Endocrine: Denies: fatigue Gastrointestinal: Denies: abdominal pain Genitourinary: Reports: as per HPI Musculoskeletal: Denies: back pain Skin: Denies: rash Past Medical History Past Medical History: Hypertension, Seizure Disorder Additional Past Medical History / Comment(s): occipital neuralgia History of Any Multi-Drug Resistant Organisms: MRSA Date of last positivie culture/infection: 2012 MDRO Source:: left leg Past Surgical History: No Surgical Hx Reported Additional Past Surgical History / Comment(s): polyps removed during colonoscopy Past Psychological History: Anxiety, Bipolar, Depression, PTSD, Schizophrenia Smoking Status: Current every day smoker Past Alcohol Use History: None Reported Past Drug Use History: Marijuana - Past Family History Father Family Medical History: Unable to Obtain Mother Additional Family Medical History / Comment(s): schizophrenia, bipolar General Exam Limitations: no limitations General appearance: alert, in no apparent distress Head exam: Present: normocephalic Eye exam: Present: normal appearance Neck exam: Present: normal inspection Respiratory exam: Present: normal lung sounds bilaterally Cardiovascular Exam: Present: regular rate, normal rhythm GI/Abdominal exam: Present: soft. Absent: tenderness exam: Present: normal inspection Extremities exam: Present: normal inspection Neurological exam: Present: alert Psychiatric exam: Present: normal affect, normal mood Skin exam: Present: normal color Course Vital Signs 01/23/20 11:15 Temperature 97.9 F Pulse Rate 95 Respiratory 20 Rate Blood Pressure 148/78 O2 Sat by Pulse 99 Oximetry Medical Decision Making - Medical Decision Making Patient will be treated for Trichomonas. Patient tested for GC and chlamydia. Disposition Clinical Impression: Trichomonas contact Disposition: HOME SELF-CARE Condition: Stable Instructions (If sedation given, give patient instructions): Trichomoniasis (ED) Additional Instructions: Please follow-up with primary care physician in the next couple days for recheck. Avoid alcohol. Return for abdominal pain, fever, discharge, pain with urination, worsening symptoms or other concerns. Is patient prescribed a controlled substance at d/c from ED?: No Referrals: [facility] [Primary Care Provider] - 1-2 days Time of Disposition: 11:45
== END 2020-01-23 11:51 | disposition home or self-care (01) ==
LOC: EC 11:01
DX: Z20.2 Contact with and (suspected) exposure to infections with a predominantly sexual mode of transmission (principal); I10 Essential (primary) hypertension; F17.200 Nicotine dependence, unspecified, uncomplicated; Z91.018 Allergy to other foods; Z88.8 Allergy status to other drugs, medicaments and biological substances
CPT/HCPCS: 87070; 87491; 87591; 99283

== ENCOUNTER 2020-08-12 01:23 | Emergency (ER) | payer OTHER ==
[2020-08-12] MEDS ORDERED: ASPIRIN 81 MG PO STA (01:37)
[2020-08-12] MEDS ORDERED: NITROGLYCERIN SL TABS 0.4 MG TAB SUBLINGUAL STA (01:37)
[2020-08-12] MEDS ORDERED: hydrALAZINE HCL 20 MG/ML 1 ML VIAL IVP STA (01:37)
--- NOTE | 2020-08-12 01:45 | ED ---
Chest Pain HPI - General Chief Complaint: Chest Pain Stated Complaint: Chest Pain Time Seen by Provider: 08/12/20 01:25 Source: patient Mode of arrival: ambulatory - History of Present Illness Initial Comments: 35yo male with history of HTN presenting to the ER for cc of vomiting and chest pain x 3 days. Pt admits to sharp mid to lower chest pain/upper abdomen that began 3 days ago. Denies radiation. Admits to vomiting since 4AM this morning. patient denies arm or jaw pain, denies pressure. Denies pain with a deep breath. patient denies headaches, fevers. Admits to chillls. patient denies cough, URI symptoms. Patient denies radiation of pain in the back. patient denies additional complaints or concerns. Patient appears nontoxic on arrival in no distress. - Related Data Previous Rx's Medication Instructions Recorded Propranolol HCl [Propranolol HCl 160 mg PO BID 30 Days #60 cap 08/28/19 ER] QUEtiapine [SEROquel] 25 mg PO BID 30 Days #60 tab 08/28/19 Sertraline [Zoloft] 200 mg PO DAILY 30 Days #30 tab 08/28/19 Topiramate [Topamax] 100 mg PO BID 30 Days #60 tab 08/28/19 Valsartan/Hydrochlorothiazide 1 tab PO DAILY 30 Days #30 tab 08/28/19 [Valsartan-Hctz 160-12.5 mg Tab] amLODIPine [Norvasc] 10 mg PO DAILY 30 Days #30 tab 08/28/19 Acetaminophen [Tylenol] 500 mg PO Q4-6H PRN #20 tab 09/08/19 Ondansetron [Zofran ODT] 4 mg PO Q8HR PRN #10 tab 11/05/19 Albuterol Sulfate [Proair Hfa] 1 - 2 puff INHALATION Q6HR PRN #1 12/21/19 inhaler guaiFENesin-DM 600/30MG [Mucinex 2 each PO Q12HR PRN #20 tab.er.12h 12/21/19 Dm] predniSONE 50 mg PO DAILY #5 tablet 12/21/19 Allergies Allergy/AdvReac Type Severity Reaction Status Date / Time caffeine AdvReac MAKES Verified 08/12/20 01:37 SEIZURES MORE SEVERE carbamazepine [From Tegretol] AdvReac MAKES Verified 08/12/20 01:37 SEIZURES MORE SEVERE Review of Systems ROS Statement: Those systems with pertinent positive or pertinent negative responses have been documented in the HPI. ROS Other: All systems not noted in ROS Statement are negative. Past Medical History Past Medical History: Hypertension, Seizure Disorder Additional Past Medical History / Comment(s): occipital neuralgia History of Any Multi-Drug Resistant Organisms: MRSA Date of last positivie culture/infection: 2012 MDRO Source:: left leg Past Surgical History: No Surgical Hx Reported Additional Past Surgical History / Comment(s): polyps removed during colonoscopy Past Psychological History: Anxiety, Bipolar, Depression, PTSD, Schizophrenia Smoking Status: Current every day smoker Past Alcohol Use History: None Reported Past Drug Use History: Marijuana - Past Family History Father Family Medical History: Unable to Obtain Mother Additional Family Medical History / Comment(s): schizophrenia, bipolar General Exam - General Exam Comments Initial Comments: General: The patient is awake and alert, in no distress Eye: Pupils are equal, round and reactive to light, extra-ocular movements are intact. No nystagmus. There is normal conjunctiva bilaterally. No signs of icterus. Ears, nose, mouth and throat: There are moist mucous membranes and no oral lesions. Neck: The neck is supple, there is no tenderness or JVD. Cardiovascular: There is a regular rate and rhythm. No murmur, rub or gallop is appreciated. Respiratory: Lungs are clear to auscultation, respirations are non-labored, breath sounds are equal. No wheezes, stridor, rales, or rhonchi. Gastrointestinal: Soft, non-distended, mild discomort to palpation of the epigastric region of the abdomen, abdomen is without masses or organomegaly noted. There is no rebound or guarding present. Musculoskeletal: Normal ROM, no tenderness. Strength 5/5. Sensation intact. radial and DP pulses equal bilaterally 2+. Neurological: A&O x 3. CN II-XII intact grossly, There are no obvious motor or sensory deficits. Coordination appears grossly intact. Speech is normal. Skin: Skin is warm and dry and no rashes or lesions are noted. No LE edema. Psychiatric: Cooperative, appropriate mood & affect, normal judgment. Course Vital Signs 08/12/20 08/12/20 08/12/20 01:33 01:52 02:15 Temperature 97.8 F Pulse Rate 64 101 H Pulse Rate [ 75 Marker Delivery ] Respiratory 16 16 Rate Blood Pressure 160/121 169/101 O2 Sat by Pulse 99 97 Oximetry Chest Pain MDM - MDM 35yo presenting for upper abdominal lower chest pain x 3 days, sharp, associated nausea/vomiting. Given BP elevation CTA obtained no abdominal nor thoracic aneursym. Pain appears atypical. Patient has abdominal pain on exam. Vomiting, possible developing colitis on CTA. Patient tropoinin (-). EKG no acute changes. Reviewed by attending Dr. Ramirez. At this time given location more upper abdomen than anterior chest, sharp, with consistent nausea and colitis changes we feel patient stable for discharge with PCP f/u. Patient is agreeable to care plan and discharge. Disposition Clinical Impression: Vomiting, Abdominal pain, Chest discomfort, Elevated blood pressure reading Disposition: HOME SELF-CARE Condition: Good Instructions (If sedation given, give patient instructions): Abdominal Pain (ED), Chest Pain (ED) Additional Instructions: Please use medication as discussed. Please follow-up with family doctor in the next 2 days.. Please return to emergency room if the symptoms increase or worsen or for any other concerns. Is patient prescribed a controlled substance at d/c from ED?: No [facility]errals: [facility] [Primary Care Provider] - 1-2 days Time of Disposition: 02:54
[2020-08-12 02:01] LABS: Basophils % (A) 0 %; Eosinophils # (A) 0.1 k/uL (0-0.7); Eosinophils % (A) 1 %; HCT 46.8 % (39.0-53.0); HGB 14.9 gm/dL (13.0-17.5); Lymphocytes # (A) 1.6 k/uL (1.0-4.8); Lymphocytes % (A) 30 %; MCH 27.2 pg (25.0-35.0); MCHC 31.8 g/dL (31.0-37.0); MCV 85.6 fL (80.0-100.0); Mean Platelet Volume 9.3; Monocytes # (A) 0.4 k/uL (0-1.0); Monocytes % (A) 8 %; Neutrophils # (A) 3.2 k/uL (1.3-7.7); Neutrophils % (A) 59 %; Platelet Count 201 k/uL (150-450); RBC 5.47 m/uL (4.30-5.90); RDW 13.4 % (11.5-15.5); WBC 5.4 k/uL (3.8-10.6)
[2020-08-12 02:18] LABS: ALT 29 U/L (4-49); AST 34 U/L (17-59); African American GFR (CKD) 88 (>60 ml/min/1.73 sqM); Albumin 4.5 g/dL (3.5-5.0); Alkaline Phosphatase 72 U/L (38-126); Anion Gap 8 mmol/L; Blood Urea Nitrogen 16 mg/dL (9-20); Calcium 9.3 mg/dL (8.4-10.2); Carbon Dioxide 24 mmol/L (22-30); Chloride 106 mmol/L (98-107); Glucose 103 mg/dL (74-99); LDH 574 U/L (313-618); Non-African American GFR(CKD) 76 (>60 ml/min/1.73 sqM); Potassium 3.6 mmol/L (3.5-5.1); Sodium 138 mmol/L (137-145); Total Bilirubin 0.7 mg/dL (0.2-1.3); Total Protein 7.5 g/dL (6.3-8.2)
[2020-08-12 02:20] LABS: D-Dimer 0.19 mg/L FEU (<0.60); Partial Thromboplastin Time 25.1 sec (22.0-30.0); Prothrombin Time 10.4 sec (9.0-12.0)
[2020-08-12 02:32] LABS: C Reactive Protein <5.0 mg/L (<10.0)
--- NOTE | 2020-08-12 02:34 | CT ---
EXAM: CT Angiography Chest With Intravenous Contrast CLINICAL HISTORY: ITS.REASON CT Reason: chest pain, elevated blood pressures TECHNIQUE: Axial computed tomographic angiography images of the chest with intravenous contrast. CTDI is 27.985 mGy and DLP is 586.25 mGy-cm. This CT exam was performed using one or more of the following dose reduction techniques: automated exposure control, adjustment of the mA and/or kV according to patient size, and/or use of iterative reconstruction technique. MIP reconstructed images were created and reviewed. COMPARISON: No relevant prior studies available. FINDINGS: Pulmonary arteries: No filling defects. Aorta: No thoracic aortic aneurysm. No dissection. Lungs: No mass. No consolidation. Pleural space: No pneumothorax. No effusion. Heart: No cardiomegaly. No pericardial effusion. Bones/joints: No acute fracture or dislocation. Soft tissues: Unremarkable. Lymph nodes: No enlarged lymph nodes. IMPRESSION: No acute intrathoracic findings. No aortic aneurysm or dissection. EXAM: CT Angiography Abdomen and Pelvis With Intravenous Contrast CLINICAL HISTORY: ITS.REASON CT Reason: chest pain, elevated blood pressures TECHNIQUE: Axial computed tomographic angiography images of the abdomen and pelvis with intravenous contrast. CTDI is 27.985 mGy and DLP is 586.25 mGy-cm. This CT exam was performed using one or more of the following dose reduction techniques: automated exposure control, adjustment of the mA and/or kV according to patient size, and/or use of iterative reconstruction technique. MIP reconstructed images were created and reviewed. COMPARISON: No relevant prior studies available. FINDINGS: VASCULATURE: Aorta: No aneurysm. No dissection. Celiac trunk and mesenteric arteries: No occlusion or significant stenosis. Renal arteries: No occlusion or significant stenosis. Iliac arteries: No occlusion or significant stenosis. Lung bases: No mass. No consolidation. ABDOMEN: Liver: No mass. Gallbladder and bile ducts: Unremarkable. Pancreas: Unremarkable. Spleen: Unremarkable. Adrenals: Unremarkable. Kidneys and ureters: Unremarkable. Stomach and bowel: No obstruction. Mildly thickened descending colon. PELVIS: Appendix: No findings to suggest acute appendicitis. Bladder: No mass. Mildly thickened. Reproductive: Unremarkable. ABDOMEN and PELVIS: Intraperitoneal space: Unremarkable. No significant fluid collection. No free air. Bones/joints: No acute fracture. No dislocation. Soft tissues: Unremarkable. Lymph nodes: Unremarkable. No enlarged lymph nodes. IMPRESSION: 1. No aortic aneurysm or dissection. 2. Mildly thickened descending colon, correlate with underdistention versus early colitis. 3. Mildly thickened bladder, correlate with cystitis versus under distention.
--- NOTE | 2020-08-12 02:37 | XR ---
EXAM: XR Chest, 1 View CLINICAL HISTORY: ITS.REASON XR Reason: Suspected COVID-19 pneumonia TECHNIQUE: Frontal view of the chest. COMPARISON: No relevant prior studies available. FINDINGS: Lungs: No consolidation or mass. Pleural space: No acute findings Heart: No cardiomegaly. Bones/joints: No acute findings. IMPRESSION: No acute cardiopulmonary process.
[2020-08-12] MEDS ORDERED: SODIUM CHLORIDE 0.9% 1,000 ML IV SCH (02:45)
[2020-08-12] MEDS ORDERED: ONDANSETRON 4 MG/2 ML VIAL IVP STA (02:47)
[2020-08-12 03:13] VITALS: BP 149/87; PULSE 86; RESP 18; TEMP 98.5
[2020-08-12 09:27] LABS: Ferritin 71.9 ng/mL (22.0-322.0)
== END 2020-08-12 03:35 | disposition home or self-care (01) ==
LOC: EC 01:23
DX: R07.9 Chest pain, unspecified (principal); R11.2 Nausea with vomiting, unspecified; R10.10 Upper abdominal pain, unspecified; I10 Essential (primary) hypertension; F17.200 Nicotine dependence, unspecified, uncomplicated; Z88.8 Allergy status to other drugs, medicaments and biological substances; Z91.018 Allergy to other foods
CPT/HCPCS: 36415; 93005; 85379; 80053; 82728; 83605; 83615; 83690; 83735; 84484; 85025; 85610; 85730; 86140; 84145; 71045; 71275; 74174; 99285; 96374; 96375; J0360; J2405; Q9967

== ENCOUNTER 2020-11-25 21:23 | Emergency (ER) | payer OTHER ==
[2020-11-25 21:46] VITALS: TEMP 98.9
[2020-11-25] MEDS ORDERED: SODIUM CHLORIDE 0.9% 1,000 ML IV STA (21:53)
[2020-11-25] MEDS ORDERED: MORPHINE SULFATE 4 MG/ML SYRINGE IV STA (21:53)
[2020-11-25] MEDS ORDERED: ONDANSETRON 4 MG/2 ML VIAL IVP STA (21:53)
[2020-11-25] MEDS ORDERED: AZITHROMYCIN 500 MG TAB PO STA (21:54)
[2020-11-25] MEDS ORDERED: cefTRIAXone 1,000 MG VIAL (IM USE) IM STA (21:54)
--- NOTE | 2020-11-25 21:58 | ED ---
Abdominal Pain HPI - General Chief Complaint: Abdominal Pain Stated Complaint: Abd pain Time Seen by Provider: 11/25/20 21:47 Source: patient Mode of arrival: ambulatory Limitations: no limitations - History of Present Illness Initial Comments: 35 year-old male patient presents to the emergency department for evaluation of lower abdominal pain, bilateral groin pain, and shortness of breath. Patient states he has been feeling unwell for the last four days. States that his abdominal pain is constant. He denies nausea or vomiting. States his last bowel movement was 5 days ago which is unusual for him. He states he is passing gas. He is concerned for STIs. States he does have burning with urination and drainage from the urethra. He denies any fever or chills. Patient denies any recent rash, chest pain, back pain, numbness, tingling, dizziness, weakness, headache, visual changes, or any other complaints. - Related Data Home Medications Medication Instructions Recorded Confirmed Aspirin EC [Ecotrin Low Dose] 81 mg PO DAILY 11/25/20 11/25/20 FLUoxetine HCL 40 mg PO DAILY@1200 11/25/20 11/25/20 Ibuprofen [Motrin Ib] 600 mg PO Q8H PRN 11/25/20 11/25/20 Labetalol HCl [Trandate] 300 mg PO BID 11/25/20 11/25/20 Ondansetron [Zofran] 4 mg PO BID PRN 11/25/20 11/25/20 QUEtiapine [SEROquel] 50 mg PO HS 11/25/20 11/25/20 hydrALAZINE HCL [Apresoline] 50 mg PO Q8H 11/25/20 11/25/20 hydroCHLOROthiazide [Hydrodiuril] 25 mg PO DAILY 11/25/20 11/25/20 Previous Rx's Medication Instructions Recorded Topiramate [Topamax] 100 mg PO BID 30 Days #60 tab 08/28/19 amLODIPine [Norvasc] 10 mg PO DAILY 30 Days #30 tab 08/28/19 Acetaminophen [Tylenol] 500 mg PO Q4-6H PRN #20 tab 09/08/19 Albuterol Sulfate [Proair Hfa] 1 - 2 puff INHALATION Q6HR PRN #1 12/21/19 inhaler Doxycycline [Vibramycin] 100 mg PO BID 1 Days #28 capsule 11/25/20 Allergies Allergy/AdvReac Type Severity Reaction Status Date / Time caffeine AdvReac MAKES Verified 11/25/20 22:08 SEIZURES MORE SEVERE carbamazepine [From Tegretol] AdvReac MAKES Verified 11/25/20 22:08 SEIZURES MORE SEVERE Review of Systems ROS Statement: Those systems with pertinent positive or pertinent negative responses have been documented in the HPI. ROS Other: All systems not noted in ROS Statement are negative. Past Medical History Past Medical History: Hypertension, Seizure Disorder Additional Past Medical History / Comment(s): occipital neuralgia History of Any Multi-Drug Resistant Organisms: MRSA Date of last positivie culture/infection: 2012 MDRO Source:: left leg Past Surgical History: No Surgical Hx Reported Additional Past Surgical History / Comment(s): polyps removed during colonoscopy Past Psychological History: Anxiety, Bipolar, Depression, PTSD, Schizophrenia Smoking Status: Current every day smoker Past Alcohol Use History: None Reported Past Drug Use History: Marijuana - Past Family History Father Family Medical History: Unable to Obtain Mother Additional Family Medical History / Comment(s): schizophrenia, bipolar General Exam Limitations: no limitations General appearance: alert, in no apparent distress, other (this is a well- developed, well-nourished adult male patient in no acute distress. ) Respiratory exam: Present: normal lung sounds bilaterally. Absent: respiratory distress, wheezes, rales, rhonchi, stridor Cardiovascular Exam: Present: regular rate, normal rhythm, normal heart sounds. Absent: systolic murmur, diastolic murmur, rubs, gallop, clicks GI/Abdominal exam: Present: soft, tenderness (lower abdominal), normal bowel sounds. Absent: distended, guarding, rebound, rigid Neurological exam: Present: alert, oriented X3, CN II-XII intact Psychiatric exam: Present: normal affect, normal mood Skin exam: Present: warm, dry, intact, normal color. Absent: rash Course Vital Signs 11/25/20 21:43 Temperature 98.9 F Pulse Rate 86 Respiratory 20 Rate Blood Pressure 186/123 O2 Sat by Pulse 97 Oximetry Medical Decision Making - Medical Decision Making 35-year-old male patient presents to the emergency department today for evaluation of bilateral groin pain, lower abdominal pain, drainage from his penis, and rectal burning. Physical examination did reveal lower abdominal tenderness. No testicular swelling or inguinal tenderness. Labs reviewed and did reveal mildly elevated creatinine 1.32. Urinalysis is obtained and showed 1+ protein, 2+ ketones, small amount of blood. Large leukocyte esterase, 20 red blood cells, greater than 182 white blood cells, 11 hyaline casts, many urine mucus. Given patient's symptoms and concern for secondary transmitted infections we did give dose of IM Rocephin and an oral dose of azithromycin. In addition we will treat with doxycycline for 2 weeks for possibility of prostati tis. Urine was cultured for STI days. He is instructed to follow-up with his primary care physician for recheck in 1-2 days. Return parameters were discussed in detail. He verbalizes understanding and agrees with this plan. Case discussed with my attending Dr. Sousa. - Lab Data Result diagrams: 11/25/20 22:06 11/25/20 22:06 Lab Results 11/25/20 11/25/20 11/25/20 Range/Units 22:06 22:06 22:06 WBC 6.4 (3.8-10.6) k/uL RBC 5.24 (4.30-5.90) m/uL Hgb 14.8 (13.0-17.5) gm/dL Hct 44.5 (39.0-53.0) % MCV 84.9 (80.0-100.0) fL MCH 28.2 (25.0-35.0) pg MCHC 33.2 (31.0-37.0) g/dL RDW 13.2 (11.5-15.5) % Plt Count 147 L (150-450) k/uL MPV 9.7 Neutrophils % 67 % Lymphocytes % 21 % Monocytes % 7 % Eosinophils % 2 % Basophils % 1 % Neutrophils # 4.3 (1.3-7.7) k/uL Lymphocytes # 1.3 (1.0-4.8) k/uL Monocytes # 0.4 (0-1.0) k/uL Eosinophils # 0.1 (0-0.7) k/uL Basophils # 0.0 (0-0.2) k/uL Sodium 139 (137-145) mmol/L Potassium 4.1 (3.5-5.1) mmol/L Chloride 105 (98-107) mmol/L Carbon Dioxide 23 (22-30) mmol/L Anion Gap 11 mmol/L BUN 17 (9-20) mg/dL Creatinine 1.32 H (0.66-1.25) mg/dL Est GFR (CKD-EPI)AfAm 81 (>60 ml/min/1.73 sqM) Est GFR (CKD-EPI)NonAf 70 (>60 ml/min/1.73 sqM) Glucose 85 (74-99) mg/dL Plasma Lactic Acid Lenny (0.7-2.0) mmol/L Calcium 9.6 (8.4-10.2) mg/dL Total Bilirubin 0.9 (0.2-1.3) mg/dL AST 33 (17-59) U/L ALT 25 (4-49) U/L Alkaline Phosphatase 70 (38-126) U/L Total Protein 7.7 (6.3-8.2) g/dL Albumin 4.8 (3.5-5.0) g/dL Lipase 87 (23-300) U/L Urine Color Yellow Urine Appearance Cloudy (Clear) Urine pH 5.5 (5.0-8.0) Ur Specific [place] 1.034 (1.001-1.035) Urine Protein 1+ H (Negative) Urine Glucose (UA) Negative (Negative) Urine Ketones 2+ H (Negative) Urine Blood Small H (Negative) Urine Nitrite Negative (Negative) Urine Bilirubin Negative (Negative) Urine Urobilinogen 3.0 (<2.0) mg/dL Ur Leukocyte Esterase Large H (Negative) Urine RBC 28 H (0-5) /hpf Urine WBC >182 H (0-5) /hpf Hyaline Casts 11 H (0-2) /lpf Urine Mucus Many H (None) /hpf 11/25/20 Range/Units 22:06 WBC (3.8-10.6) k/uL RBC (4.30-5.90) m/uL Hgb (13.0-17.5) gm/dL Hct (39.0-53.0) % MCV (80.0-100.0) fL MCH (25.0-35.0) pg MCHC (31.0-37.0) g/dL RDW (11.5-15.5) % Plt Count (150-450) k/uL MPV Neutrophils % % Lymphocytes % % Monocytes % % Eosinophils % % Basophils % % Neutrophils # (1.3-7.7) k/uL Lymphocytes # (1.0-4.8) k/uL Monocytes # (0-1.0) k/uL Eosinophils # (0-0.7) k/uL Basophils # (0-0.2) k/uL Sodium (137-145) mmol/L Potassium (3.5-5.1) mmol/L Chloride (98-107) mmol/L Carbon Dioxide (22-30) mmol/L Anion Gap mmol/L BUN (9-20) mg/dL Creatinine (0.66-1.25) mg/dL Est GFR (CKD-EPI)AfAm (>60 ml/min/1.73 sqM) Est GFR (CKD-EPI)NonAf (>60 ml/min/1.73 sqM) Glucose (74-99) mg/dL Plasma Lactic Acid Lenny 0.9 (0.7-2.0) mmol/L Calcium (8.4-10.2) mg/dL Total Bilirubin (0.2-1.3) mg/dL AST (17-59) U/L ALT (4-49) U/L Alkaline Phosphatase (38-126) U/L Total Protein (6.3-8.2) g/dL Albumin (3.5-5.0) g/dL Lipase (23-300) U/L Urine Color Urine Appearance (Clear) Urine pH (5.0-8.0) Ur Specific [place] (1.001-1.035) Urine Protein (Negative) Urine Glucose (UA) (Negative) Urine Ketones (Negative) Urine Blood (Negative) Urine Nitrite (Negative) Urine Bilirubin (Negative) Urine Urobilinogen (<2.0) mg/dL Ur Leukocyte Esterase (Negative) Urine RBC (0-5) /hpf Urine WBC (0-5) /hpf Hyaline Casts (0-2) /lpf Urine Mucus (None) /hpf - Radiology Data Radiology results: report reviewed, image reviewed KUB x-ray is obtained. Report was reviewed in its entirety. Impression by Dr. Palacio shows nonacute abdomen. No change Two-view x-ray of the chest is obtained. Report was reviewed in its entirety. Impression by Dr. Palacio shows normal chest. No change. Disposition Clinical Impression: UTI (urinary tract infection), Prostatitis, STI (sexually transmitted infec tion) Disposition: HOME SELF-CARE Condition: Good Instructions (If sedation given, give patient instructions): Sexually Tra nsmitted Diseases (ED), Prostatitis (ED) Additional Instructions: Complete antibiotic prescription and full. Follow-up the primary care physician for recheck in 1-2 days. Return to the emergency department for any new, worsening, or concerning symptoms. Prescriptions: Doxycycline [Vibramycin] 100 mg PO BID 1 Days #28 capsule Is patient prescribed a controlled substance at d/c from ED?: No Referrals: [facility] [Primary Care Provider] - 1-2 days Time of Disposition: 23:13
[2020-11-25 22:39] LABS: Basophils % (A) 1 %; Eosinophils # (A) 0.1 k/uL (0-0.7); Eosinophils % (A) 2 %; HCT 44.5 % (39.0-53.0); HGB 14.8 gm/dL (13.0-17.5); Lymphocytes # (A) 1.3 k/uL (1.0-4.8); Lymphocytes % (A) 21 %; MCH 28.2 pg (25.0-35.0); MCHC 33.2 g/dL (31.0-37.0); MCV 84.9 fL (80.0-100.0); Mean Platelet Volume 9.7; Monocytes # (A) 0.4 k/uL (0-1.0); Monocytes % (A) 7 %; Neutrophils # (A) 4.3 k/uL (1.3-7.7); Neutrophils % (A) 67 %; Platelet Count 147 k/uL (150-450); RBC 5.24 m/uL (4.30-5.90); RDW 13.2 % (11.5-15.5); WBC 6.4 k/uL (3.8-10.6)
--- NOTE | 2020-11-25 22:39 | XR ---
EXAMINATION TYPE: XR chest 2V DATE OF EXAM: 11/25/2020 COMPARISON: August 12, 2020 HISTORY: Chest pain Heart and mediastinum are normal. Lungs are clear. Diaphragm is normal. Bony thorax appears normal. IMPRESSION: Normal chest. No change.
--- NOTE | 2020-11-25 22:41 | XR ---
EXAMINATION TYPE: XR KUB DATE OF EXAM: 11/25/2020 COMPARISON: 11/05/2019 HISTORY: Pain TECHNIQUE: 2 views FINDINGS: There is no sign of intestinal obstruction or pneumoperitoneum. Fecal pattern is normal. Th ere are no pathologic calcifications. Lung bases are clear. Bony structures are intact. IMPRESSION: Nonacute abdomen. No change.
[2020-11-25 22:44] LABS: Appearance,Urine Cloudy (Clear); Bilirubin,Urine Negative (Negative); Blood,Urine Small (Negative); Color,Urine Yellow; Glucose,Urine (UA) Negative (Negative); Hyaline Casts,Urine 11 /lpf (0-2); Ketones,Urine 2+ (Negative); Leukocyte Esterase,Urine Large (Negative); Mucus,Urine Many /hpf; Nitrite,Urine Negative (Negative); PH, Urine 5.5 (5.0-8.0); Protein,Urine 1+ (Negative); RBC,Urine 28 /hpf (0-5); Specific Gravity,Urine 1.034 (1.001-1.035); WBC,Urine >182 /hpf (0-5)
[2020-11-25 23:01] LABS: Albumin 4.8 g/dL (3.5-5.0); Calcium 9.6 mg/dL (8.4-10.2); Potassium 4.1 mmol/L (3.5-5.1); Total Bilirubin 0.9 mg/dL (0.2-1.3); Total Protein 7.7 g/dL (6.3-8.2)
[2020-11-25] MEDS ORDERED: DOXYCYCLINE 100 MG CAP PO STA (23:12)
[2020-11-25 23:42] VITALS: BP 158/126; PULSE 88; RESP 18
== END 2020-11-25 23:42 | disposition home or self-care (01) ==
LOC: EC 21:23
DX: N39.0 Urinary tract infection, site not specified (principal); N41.9 Inflammatory disease of prostate, unspecified; A64 Unspecified sexually transmitted disease; I10 Essential (primary) hypertension; G40.909 Epilepsy, unspecified, not intractable, without status epilepticus; F31.9 Bipolar disorder, unspecified; F41.9 Anxiety disorder, unspecified; F20.9 Schizophrenia, unspecified; F17.200 Nicotine dependence, unspecified, uncomplicated; Z79.82 Long term (current) use of aspirin; Z79.899 Other long term (current) drug therapy; Z88.8 Allergy status to other drugs, medicaments and biological substances; Z91.018 Allergy to other foods
CPT/HCPCS: 36415; 80053; 83605; 83690; 85025; 81001; 87491; 87591; 87086; 71046; 74018; 99284; 96374; 96375; 96361; 96372; J2270; J2405; J0696

== ENCOUNTER 2021-01-06 19:33 | Emergency (ER) | payer OTHER ==
[2021-01-06 19:59] VITALS: RESP 18
[2021-01-06 20:21] LABS: Basophils % (A) 1 %; Eosinophils # (A) 0.1 k/uL (0-0.7); Eosinophils % (A) 4 %; HCT 36.2 % (39.0-53.0); HGB 12.5 gm/dL (13.0-17.5); Lymphocytes % (A) 32 %; MCH 28.5 pg (25.0-35.0); MCHC 34.5 g/dL (31.0-37.0); MCV 82.8 fL (80.0-100.0); Mean Platelet Volume 7.6; Monocytes # (A) 0.3 k/uL (0-1.0); Monocytes % (A) 8 %; Neutrophils # (A) 1.7 k/uL (1.3-7.7); Neutrophils % (A) 53 %; Platelet Count 167 k/uL (150-450); RBC 4.37 m/uL (4.30-5.90); RDW 13.5 % (11.5-15.5); WBC 3.3 k/uL (3.8-10.6)
--- NOTE | 2021-01-06 20:28 | XR ---
EXAMINATION TYPE: XR chest 2V DATE OF EXAM: 01/06/2021 COMPARISON: 11/25/2020 HISTORY: Chest pain TECHNIQUE: FINDINGS: Heart and mediastinum are normal. Lungs are clear. Diaphragm is normal. Bony thorax appears normal. IMPRESSION: Normal chest. No change.
[2021-01-06 20:33] LABS: Calcium 9.1 mg/dL (8.4-10.2); Magnesium 2.1 mg/dL (1.6-2.3); Total Bilirubin 0.3 mg/dL (0.2-1.3); Total Protein 6.4 g/dL (6.3-8.2)
[2021-01-06 20:44] LABS: Partial Thromboplastin Time 23.6 sec (22.0-30.0); Prothrombin Time 10.3 sec (9.0-12.0)
--- NOTE | 2021-01-06 22:19 | ED ---
General Adult HPI - General Chief complaint: Chest Pain Stated complaint: Chest pain/ABD pain Time Seen by Provider: 01/06/21 22:06 Source: patient, RN notes reviewed Mode of arrival: ambulatory Limitations: no limitations - History of Present Illness Initial comments: 35-year-old black male patient presents to the emergency room with complaints of abdominal pain pain. Patient states has vomited 4-5 times today he says it is clearing color states last bowel movement was today normal. She states seen his primary care doctor 3 days ago and was prescribed omeprazole with no relief. Patient is a nonsmoker, patient does not drink alcohol on a daily basis, patient states takes medication for seizures and hypertension and has been able to keep his medications down but feels like they are stuck in his throat. Patient denies hemataemesis or hematochezia. -: days(s) (3) Location: abdomen Radiation: other (throat) Consistency: constant Improves with: none Worsens with: none Associated Symptoms: nausea/vomiting - Related Data Home Medications Medication Instructions Recorded Confirmed Aspirin EC [Ecotrin Low Dose] 81 mg PO DAILY 11/25/20 01/06/21 FLUoxetine HCL 40 mg PO DAILY@1200 11/25/20 01/06/21 Ibuprofen [Motrin Ib] 600 mg PO Q8H PRN 11/25/20 01/06/21 Labetalol HCl [Trandate] 300 mg PO BID 11/25/20 01/06/21 Ondansetron [Zofran] 4 mg PO BID PRN 11/25/20 01/06/21 QUEtiapine [SEROquel] 50 mg PO HS 11/25/20 01/06/21 hydrALAZINE HCL [Apresoline] 50 mg PO Q8H 11/25/20 01/06/21 hydroCHLOROthiazide [Hydrodiuril] 25 mg PO DAILY 11/25/20 01/06/21 Cholecalciferol (Vitamin D3) 125 mcg PO DAILY 01/06/21 01/06/21 [Vitamin D3 (5000 Iu)] Omeprazole 20 mg PO BID 01/06/21 01/06/21 Previous Rx's Medication Instructions Recorded Topiramate [Topamax] 100 mg PO BID 30 Days #60 tab 08/28/19 amLODIPine [Norvasc] 10 mg PO DAILY 30 Days #30 tab 08/28/19 Acetaminophen [Tylenol] 500 mg PO Q4-6H PRN #20 tab 09/08/19 Albuterol Sulfate [Proair Hfa] 1 - 2 puff INHALATION Q6HR PRN #1 12/21/19 inhaler Sucralfate [Carafate] 1 gm PO BID 14 Days #28 tablet 01/06/21 Allergies Allergy/AdvReac Type Severity Reaction Status Date / Time caffeine AdvReac MAKES Verified 01/06/21 19:59 SEIZURES MORE SEVERE carbamazepine [From Tegretol] AdvReac MAKES Verified 01/06/21 19:59 SEIZURES MORE SEVERE Review of Systems ROS Statement: Those systems with pertinent positive or pertinent negative responses have been documented in the HPI. ROS Other: All systems not noted in ROS Statement are negative. Past Medical History Past Medical History: Hypertension, Seizure Disorder Additional Past Medical History / Comment(s): occipital neuralgia History of Any Multi-Drug Resistant Organisms: MRSA Date of last positivie culture/infection: 2012 MDRO Source:: left leg Past Surgical History: No Surgical Hx Reported Additional Past Surgical History / Comment(s): polyps removed during colonoscopy Past Psychological History: Anxiety, Bipolar, Depression, PTSD, Schizophrenia Smoking Status: Current every day smoker Past Alcohol Use History: None Reported Past Drug Use History: Marijuana - Past Family History Father Family Medical History: Unable to Obtain Mother Additional Family Medical History / Comment(s): schizophrenia, bipolar General Exam Limitations: no limitations General appearance: alert Head exam: Present: atraumatic, normocephalic, normal inspection Eye exam: Present: normal appearance, PERRL, EOMI. Absent: scleral icterus, conjunctival injection, periorbital swelling ENT exam: Present: normal exam, mucous membranes moist Neck exam: Present: normal inspection, full ROM. Absent: tenderness, mening ismus, lymphadenopathy Respiratory exam: Present: normal lung sounds bilaterally. Absent: respiratory distress, wheezes, rales, rhonchi, stridor Cardiovascular Exam: Present: regular rate, normal rhythm, normal heart sounds. Absent: systolic murmur, diastolic murmur, rubs, gallop, clicks GI/Abdominal exam: Present: soft, tenderness (epigastric), normal bowel sounds. Absent: distended, guarding, rebound, rigid, mass, pulsatile mass Course Vital Signs 01/06/21 01/06/21 19:46 22:53 Temperature 97.8 F Pulse Rate 80 82 Respiratory 18 18 Rate Blood Pressure 111/74 120/76 O2 Sat by Pulse 99 97 Oximetry EKG Findings - EKG Results: EKG: WNL, sinus rhythm (Ventricular rate of 80, DE interval 0.16, QRS of 0.10, QTc of 424ms), no acute changes, not changed from: (08/12/20) Medical Decision Making - Medical Decision Making Chest x-ray negative for free air or infiltrates, troponin 0.012, potassium 4.0 noted hemoglobin dropped from 14.8 on December [address] abdomen shows no pleural effusion, bile duct not dilated, heart normal size, no hernia, normal appendix, liver, spleen, stomach, pancreas, and gallbladder all intact. Pain likely related to peptic ulcer as patient describes pain as burning epigastric in nature. Patient hemodynamically stable with a blood pressure 111/74 heart rate of 80 sitting 99% on room air abdomen is soft. Will prescribed Carafate and have patient follow up with primary care doctor. - Lab Data Result diagrams: 01/06/21 20:04 01/06/21 20:04 Lab Results 01/06/21 01/06/21 01/06/21 Range/Units 20:04 20:04 20:04 WBC 3.3 L (3.8-10.6) k/uL RBC 4.37 (4.30-5.90) m/uL Hgb 12.5 L (13.0-17.5) gm/dL Hct 36.2 L (39.0-53.0) % MCV 82.8 (80.0-100.0) fL MCH 28.5 (25.0-35.0) pg MCHC 34.5 (31.0-37.0) g/dL RDW 13.5 (11.5-15.5) % Plt Count 167 (150-450) k/uL MPV 7.6 Neutrophils % 53 % Lymphocytes % 32 % Monocytes % 8 % Eosinophils % 4 % Basophils % 1 % Neutrophils # 1.7 (1.3-7.7) k/uL Lymphocytes # 1.0 (1.0-4.8) k/uL Monocytes # 0.3 (0-1.0) k/uL Eosinophils # 0.1 (0-0.7) k/uL Basophils # 0.0 (0-0.2) k/uL PT 10.3 (9.0-12.0) sec INR 1.0 (<1.2) APTT 23.6 (22.0-30.0) sec Sodium 135 L (137-145) mmol/L Potassium 4.0 (3.5-5.1) mmol/L Chloride 107 (98-107) mmol/L Carbon Dioxide 25 (22-30) mmol/L Anion Gap 3 mmol/L BUN 16 (9-20) mg/dL Creatinine 1.33 H (0.66-1.25) mg/dL Est GFR (CKD-EPI)AfAm 80 (>60 ml/min/1.73 sqM) Est GFR (CKD-EPI)NonAf 69 (>60 ml/min/1.73 sqM) Glucose 93 (74-99) mg/dL Calcium 9.1 (8.4-10.2) mg/dL Magnesium 2.1 (1.6-2.3) mg/dL Total Bilirubin 0.3 (0.2-1.3) mg/dL AST 36 (17-59) U/L ALT 44 (4-49) U/L Alkaline Phosphatase 50 (38-126) U/L Troponin I (0.000-0.034) ng/mL Total Protein 6.4 (6.3-8.2) g/dL Albumin 4.0 (3.5-5.0) g/dL 01/06/21 Range/Units 20:04 WBC (3.8-10.6) k/uL RBC (4.30-5.90) m/uL Hgb (13.0-17.5) gm/dL Hct (39.0-53.0) % MCV (80.0-100.0) fL MCH (25.0-35.0) pg MCHC (31.0-37.0) g/dL RDW (11.5-15.5) % Plt Count (150-450) k/uL MPV Neutrophils % % Lymphocytes % % Monocytes % % Eosinophils % % Basophils % % Neutrophils # (1.3-7.7) k/uL Lymphocytes # (1.0-4.8) k/uL Monocytes # (0-1.0) k/uL Eosinophils # (0-0.7) k/uL Basophils # (0-0.2) k/uL PT (9.0-12.0) sec INR (<1.2) APTT (22.0-30.0) sec Sodium (137-145) mmol/L Potassium (3.5-5.1) mmol/L Chloride (98-107) mmol/L Carbon Dioxide (22-30) mmol/L Anion Gap mmol/L BUN (9-20) mg/dL Creatinine (0.66-1.25) mg/dL Est GFR (CKD-EPI)AfAm (>60 ml/min/1.73 sqM) Est GFR (CKD-EPI)NonAf (>60 ml/min/1.73 sqM) Glucose (74-99) mg/dL Calcium (8.4-10.2) mg/dL Magnesium (1.6-2.3) mg/dL Total Bilirubin (0.2-1.3) mg/dL AST (17-59) U/L ALT (4-49) U/L Alkaline Phosphatase (38-126) U/L Troponin I <0.012 (0.000-0.034) ng/mL Total Protein (6.3-8.2) g/dL Albumin (3.5-5.0) g/dL Disposition Clinical Impression: Gastroesophageal reflux disease, Epigastric pain Disposition: HOME SELF-CARE Condition: Fair Instructions (If sedation given, give patient instructions): Abdominal Pain (ED), Epigastric Pain (ED) Additional Instructions: Take medication as prescribed, follow up with the primary care doctor for possible upper endoscopy to check for ulcers. Return to the emergency room if blood in vomit or stool. Prescriptions: Sucralfate [Carafate] 1 gm PO BID 14 Days #28 tablet Is patient prescribed a controlled substance at d/c from ED?: No Referrals: [facility] [Primary Care Provider] - 1-2 days Time of Disposition: 23:48
[2021-01-06] MEDS ORDERED: MAG HYDROX/AL HYDROX/SIMETH 30 ML, HYOSCYAMINE ELIXIR 10 ML, LIDOCAINE VISCOUS 2% 10 ML PO STA ×3 (22:28)
[2021-01-06 22:57] VITALS: PULSE 82
--- NOTE | 2021-01-06 23:42 | CT ---
EXAMINATION TYPE: CT abdomen pelvis w con DATE OF EXAM: 01/06/2021 COMPARISON: 03/15/2013 HISTORY: Epigastric pain CT DLP: 722.7 mGycm Automated exposure control for dose reduction was used. CONTRAST: Performed with IV Contrast, patient injected with 100 mL of Isovue 300. Images obtained from the diaphragm to the floor the pelvis with IV contrast. Lung bases are clear. There is no pleural effusion. Heart size is normal. There is no pericardial eff usion. Liver spleen stomach pancreas gallbladder appear intact. The bile ducts are not dilated. There is no adrenal mass. Kidneys show satisfactory contrast opacification. There is no hydronephrosi s. Ureters are not dilated. There is no retroperitoneal adenopathy. Bladder distends smoothly. There is no inguinal hernia. There is no free fluid in the pelvis. There is no evidence of pelvic mass. Del ayed images show normal renal excretion. There is no mesenteric edema. There is no ascites or free air. There is no bowel obstruction. Appendi x is posterior and appears normal. The lumbar vertebra appear intact. There is no compression fracture. Posterior elements are intact. B misael pelvis is intact. IMPRESSION: Negative CT scan abdomen and pelvis. Normal appendix.
[2021-01-07 00:34] VITALS: BP 119/79; TEMP 98.1
== END 2021-01-07 00:34 | disposition home or self-care (01) ==
LOC: EC 19:33
DX: K21.9 Gastro-esophageal reflux disease without esophagitis (principal); R10.13 Epigastric pain; I10 Essential (primary) hypertension; F41.9 Anxiety disorder, unspecified; F32.9 Major depressive disorder, single episode, unspecified; F43.10 Post-traumatic stress disorder, unspecified; F20.9 Schizophrenia, unspecified; F17.200 Nicotine dependence, unspecified, uncomplicated; Z79.899 Other long term (current) drug therapy; Z79.82 Long term (current) use of aspirin; Z91.018 Allergy to other foods
CPT/HCPCS: 36415; 93005; 80053; 83735; 84484; 85025; 85610; 85730; 71046; 74177; 99285; Q9967

== ENCOUNTER 2021-12-21 07:36 | Emergency (ER) | payer OTHER ==
[2021-12-21 07:40] VITALS: RESP 18
[2021-12-21] MEDS ORDERED: hydrALAZINE HCL 20 MG/ML 1 ML VIAL IVP STA (07:55)
[2021-12-21] MEDS ORDERED: ACETAMINOPHEN TAB 500 MG TAB PO STA (07:57)
--- NOTE | 2021-12-21 08:06 | ED ---
General Adult HPI - General Chief complaint: Headache Stated complaint: headache Time Seen by Provider: 12/21/21 07:40 Source: patient, RN notes reviewed, old records reviewed Mode of arrival: ambulatory Limitations: no limitations - History of Present Illness Initial comments: This is a 36-year-old male who presents emergency Department with a past medical history significant for seizures and high blood pressure. Patient states he has not been taking his blood pressure meds he did not take them today. Patient states he woke up at 5 AM with a headache and he asked region of his head he states it's mild to moderate in intensity. Patient did not take his medications and does not know why. Patient denies any visual disturbance. Patient denies any chest pain palpitations difficulty breathing shortness of breath. Patient denies any nausea vomiting. Patient denies any recent fever chills or cough. Patient has no photophobia. - Related Data Home Medications Medication Instructions Recorded Confirmed Aspirin EC [Ecotrin Low Dose] 81 mg PO DAILY 11/25/20 01/06/21 FLUoxetine HCL 40 mg PO DAILY@1200 11/25/20 01/06/21 Ibuprofen [Motrin Ib] 600 mg PO Q8H PRN 11/25/20 01/06/21 Labetalol HCl [Trandate] 300 mg PO BID 11/25/20 01/06/21 Ondansetron [Zofran] 4 mg PO BID PRN 11/25/20 01/06/21 QUEtiapine [SEROquel] 50 mg PO HS 11/25/20 01/06/21 hydrALAZINE HCL [Apresoline] 50 mg PO Q8H 11/25/20 01/06/21 hydroCHLOROthiazide [Hydrodiuril] 25 mg PO DAILY 11/25/20 01/06/21 Cholecalciferol (Vitamin D3) 125 mcg PO DAILY 01/06/21 01/06/21 [Vitamin D3 (5000 Iu)] Omeprazole 20 mg PO BID 01/06/21 01/06/21 Previous Rx's Medication Instructions Recorded Topiramate [Topamax] 100 mg PO BID 30 Days #60 tab 08/28/19 amLODIPine [Norvasc] 10 mg PO DAILY 30 Days #30 tab 08/28/19 Acetaminophen [Tylenol] 500 mg PO Q4-6H PRN #20 tab 09/08/19 Albuterol Sulfate [Proair Hfa] 1 - 2 puff INHALATION Q6HR PRN #1 12/21/19 inhaler Sucralfate [Carafate] 1 gm PO BID 14 Days #28 tablet 01/06/21 Allergies Allergy/AdvReac Type Severity Reaction Status Date / Time caffeine AdvReac MAKES Verified 01/06/21 19:59 SEIZURES MORE SEVERE carbamazepine [From Tegretol] AdvReac MAKES Verified 01/06/21 19:59 SEIZURES MORE SEVERE Review of Systems ROS Statement: Those systems with pertinent positive or pertinent negative responses have been documented in the HPI. ROS Other: All systems not noted in ROS Statement are negative. Past Medical History Past Medical History: Hypertension, Seizure Disorder Additional Past Medical History / Comment(s): occipital neuralgia History of Any Multi-Drug Resistant Organisms: MRSA Date of last positivie culture/infection: 2012 MDRO Source:: left leg Past Surgical History: No Surgical Hx Reported Additional Past Surgical History / Comment(s): polyps removed during colonoscopy Past Psychological History: Anxiety, Bipolar, Depression, PTSD, Schizophrenia Smoking Status: Current some day smoker Past Alcohol Use History: None Reported Past Drug Use History: Marijuana - Past Family History Father Family Medical History: Unable to Obtain Mother Additional Family Medical History / Comment(s): schizophrenia, bipolar General Exam - General Exam Comments Initial Comments: GENERAL: Patient is well-developed and well-nourished. Patient is nontoxic and well- hydrated and is in mild distress. ENT: Neck is soft and supple. No significant lymphadenopathy is noted. Oropharynx is clear. Moist mucous membranes. Neck has full range of motion without marques citing any pain. EYES: The sclera were anicteric and conjunctiva were pink and moist. Extraocular movements were intact and pupils were equal round and reactive to light. Eyelids were unremarkable. PULMONARY: Unlabored respirations. Good breath sounds bilaterally. No audible rales rhonchi or wheezing was noted. CARDIOVASCULAR: There is a regular rate and rhythm without any murmurs gallops or rubs. ABDOMEN: Soft and nontender with normal bowel sounds. SKIN: Skin is clear with no lesions or rashes and otherwise unremarkable. NEUROLOGIC: Patient is alert and oriented x3. Cranial nerves II through XII are grossly intact. Motor and sensory are also intact. Normal speech, volume and content. Symmetrical smile. MUSCULOSKELETAL: Normal extremities with adequate strength and full range of motion. LYMPHATICS: No significant lymphadenopathy is noted PSYCHIATRIC: Normal psychiatric evaluation. Limitations: no limitations Course Vital Signs 12/21/21 12/21/21 12/21/21 07:38 07:47 08:37 Temperature 98.2 F Pulse Rate 63 Respiratory 18 Rate Blood Pressure 168/121 166/122 160/110 O2 Sat by Pulse 98 Oximetry 12/21/21 08:51 Temperature 97.7 F Pulse Rate 88 Respiratory 18 Rate Blood Pressure 157/103 O2 Sat by Pulse 100 Oximetry Medical Decision Making - Medical Decision Making EKG shows sinus rhythm at 66 bpm [place] interval 186 QRS is 98 QT interval is 41 QTC is 4:15. Patient's EKG shows LVH. I compared this to an old EKG there is no acute changes. CT of the brain shows no acute abnormality. Patient received hydralazine and it brought his blood pressure down to 157/103. Patient's headache was much improved. Patient is instructed to go home and take his blood pressure medications to continue to take him as prescribed. - Lab Data Result diagrams: 12/21/21 08:01 12/21/21 08:01 Lab Results 12/21/21 12/21/21 12/21/21 Range/Units 08:01 08:01 08:01 WBC 3.6 L (3.8-10.6) k/uL RBC 5.09 (4.30-5.90) m/uL Hgb 14.3 (13.0-17.5) gm/dL Hct 43.5 (39.0-53.0) % MCV 85.5 (80.0-100.0) fL MCH 28.1 (25.0-35.0) pg MCHC 32.9 (31.0-37.0) g/dL RDW 13.1 (11.5-15.5) % Plt Count 160 (150-450) k/uL MPV 8.7 Neutrophils % 53 % Lymphocytes % 34 % Monocytes % 6 % Eosinophils % 4 % Basophils % 1 % Neutrophils # 1.9 (1.3-7.7) k/uL Lymphocytes # 1.2 (1.0-4.8) k/uL Monocytes # 0.2 (0-1.0) k/uL Eosinophils # 0.1 (0-0.7) k/uL Basophils # 0.0 (0-0.2) k/uL Sodium 137 (137-145) mmol/L Potassium 3.9 (3.5-5.1) mmol/L Chloride 107 (98-107) mmol/L Carbon Dioxide 25 (22-30) mmol/L Anion Gap 5 mmol/L BUN 16 (9-20) mg/dL Creatinine 1.09 (0.66-1.25) mg/dL Est GFR (CKD-EPI)AfAm >90 (>60 ml/min/1.73 sqM) Est GFR (CKD-EPI)NonAf 87 (>60 ml/min/1.73 sqM) Glucose 98 (74-99) mg/dL Calcium 8.6 (8.4-10.2) mg/dL Total Bilirubin 0.5 (0.2-1.3) mg/dL AST 35 (17-59) U/L ALT 25 (4-49) U/L Alkaline Phosphatase 59 (38-126) U/L Troponin I <0.012 (0.000-0.034) ng/mL Total Protein 7.1 (6.3-8.2) g/dL Albumin 4.0 (3.5-5.0) g/dL Disposition Clinical Impression: Hypertensive urgency, Headache Disposition: HOME SELF-CARE Condition: Good Instructions (If sedation given, give patient instructions): Hypertension (ED) Is patient prescribed a controlled substance at d/c from ED?: No Referrals: [facility] [Primary Care Provider] - 1-2 days Time of Disposition: 08:55
[2021-12-21 08:14] LABS: Basophils % (A) 1 %; Eosinophils # (A) 0.1 k/uL (0-0.7); Eosinophils % (A) 4 %; HCT 43.5 % (39.0-53.0); HGB 14.3 gm/dL (13.0-17.5); Lymphocytes # (A) 1.2 k/uL (1.0-4.8); Lymphocytes % (A) 34 %; MCH 28.1 pg (25.0-35.0); MCHC 32.9 g/dL (31.0-37.0); MCV 85.5 fL (80.0-100.0); Mean Platelet Volume 8.7; Monocytes # (A) 0.2 k/uL (0-1.0); Monocytes % (A) 6 %; Neutrophils # (A) 1.9 k/uL (1.3-7.7); Neutrophils % (A) 53 %; Platelet Count 160 k/uL (150-450); RBC 5.09 m/uL (4.30-5.90); RDW 13.1 % (11.5-15.5); WBC 3.6 k/uL (3.8-10.6)
[2021-12-21 08:30] LABS: ALT 25 U/L (4-49); AST 35 U/L (17-59); African American GFR (CKD) >90 (>60 ml/min/1.73 sqM); Alkaline Phosphatase 59 U/L (38-126); Anion Gap 5 mmol/L; Blood Urea Nitrogen 16 mg/dL (9-20); Calcium 8.6 mg/dL (8.4-10.2); Carbon Dioxide 25 mmol/L (22-30); Chloride 107 mmol/L (98-107); Glucose 98 mg/dL (74-99); Non-African American GFR(CKD) 87 (>60 ml/min/1.73 sqM); Potassium 3.9 mmol/L (3.5-5.1); Sodium 137 mmol/L (137-145); Total Bilirubin 0.5 mg/dL (0.2-1.3); Total Protein 7.1 g/dL (6.3-8.2)
--- NOTE | 2021-12-21 08:38 | CT ---
EXAMINATION TYPE: CT brain wo con DATE OF EXAM: 12/21/2021 COMPARISON: 11/23/2017 HISTORY: Acute headache CT DLP: 1099.4 mGycm Automated exposure control for dose reduction was used. FINDINGS: There is no acute intracranial hemorrhage, mass effect, or midline shift identified. The ventricles and sulci are within normal limits in size. The globes are intact and the visualized sinuses are francis ar. IMPRESSION: No acute intracranial hemorrhage, mass effect, or midline shift is seen..
[2021-12-21 08:52] VITALS: BP 157/103; PULSE 88; TEMP 97.7
== END 2021-12-21 09:02 | disposition home or self-care (01) ==
LOC: EC 07:36
DX: R51.9 Headache, unspecified (principal); I16.0 Hypertensive urgency; F41.9 Anxiety disorder, unspecified; F31.9 Bipolar disorder, unspecified; F43.10 Post-traumatic stress disorder, unspecified; F25.9 Schizoaffective disorder, unspecified; F17.200 Nicotine dependence, unspecified, uncomplicated; F12.90 Cannabis use, unspecified, uncomplicated; Z79.82 Long term (current) use of aspirin
CPT/HCPCS: 99284; 96374; 36415; 93005; 80053; 84484; 85025; 70450; J0360

== ENCOUNTER 2023-10-14 16:39 | Emergency (ER) | payer OTHER, BC ==
--- NOTE | 2023-10-14 17:13 | ED ---
General Adult HPI - General Stated complaint: Bilateral hand injuries-[facility] Source: patient, RN notes reviewed - History of Present Illness Initial comments: 38 year old male presents to the emergency department for evaluation of bilateral hand injuries. He states that he was at work when a pole fell on both of his hands. He reports normal sensation to all fingers. He notes most swelling and pain to right middle finger. - Related Data Home Medications Medication Instructions Recorded Confirmed Aspirin EC [Ecotrin Low Dose] 81 mg PO DAILY 11/25/20 01/06/21 FLUoxetine HCL 40 mg PO DAILY@1200 11/25/20 01/06/21 Ibuprofen [Motrin Ib] 600 mg PO Q8H PRN 11/25/20 01/06/21 Labetalol HCl [Trandate] 300 mg PO BID 11/25/20 01/06/21 Ondansetron [Zofran] 4 mg PO BID PRN 11/25/20 01/06/21 QUEtiapine [SEROquel] 50 mg PO HS 11/25/20 01/06/21 hydrALAZINE HCL [Apresoline] 50 mg PO Q8H 11/25/20 01/06/21 hydroCHLOROthiazide [Hydrodiuril] 25 mg PO DAILY 11/25/20 01/06/21 Cholecalciferol (Vitamin D3) 125 mcg PO DAILY 01/06/21 01/06/21 [Vitamin D3 (5000 Iu)] Omeprazole 20 mg PO BID 01/06/21 01/06/21 Previous Rx's Medication Instructions Recorded Topiramate [Topamax] 100 mg PO BID 30 Days #60 tab 08/28/19 amLODIPine [Norvasc] 10 mg PO DAILY 30 Days #30 tab 08/28/19 Acetaminophen [Tylenol] 500 mg PO Q4-6H PRN #20 tab 09/08/19 Albuterol Sulfate [Proair Hfa] 1 - 2 puff INHALATION Q6HR PRN #1 12/21/19 inhaler Sucralfate [Carafate] 1 gm PO BID 14 Days #28 tablet 01/06/21 Allergies Allergy/AdvReac Type Severity Reaction Status Date / Time caffeine AdvReac MAKES Verified 10/14/23 17:13 SEIZURES MORE SEVERE carbamazepine [From Tegretol] AdvReac MAKES Verified 10/14/23 17:13 SEIZURES MORE SEVERE Review of Systems ROS Statement: Those systems with pertinent positive or pertinent negative responses have been documented in the HPI. ROS Other: All systems not noted in ROS Statement are negative. Past Medical History Past Medical History: Hypertension, Seizure Disorder Additional Past Medical History / Comment(s): occipital neuralgia History of Any Multi-Drug Resistant Organisms: MRSA Date of last positivie culture/infection: 2012 MDRO Source:: left leg Past Surgical History: No Surgical Hx Reported Additional Past Surgical History / Comment(s): polyps removed during colonoscopy Past Psychological History: Anxiety, Bipolar, Depression, PTSD, Schizophrenia Smoking Status: Current some day smoker Past Alcohol Use History: None Reported Past Drug Use History: Marijuana - Past Family History Father Family Medical History: Unable to Obtain Mother Additional Family Medical History / Comment(s): schizophrenia, bipolar General Exam - General Exam Comments Initial Comments: Visual Physical Exam Vital signs reviewed General: Well-appearing, nontoxic, no acute distress. Head: Normocephalic, atraumatic Eyes: PERRLA, EOMI ENT: Airway patent Chest: Nonlabored breathing Skin: No visual rash, normal skin tone Neuro: Alert and oriented 3 Musculoskeletal: No gross abnormalities Limitations: no limitations General appearance: alert, in no apparent distress Head exam: Present: atraumatic, normocephalic, normal inspection Eye exam: Present: normal appearance, PERRL, EOMI. Absent: scleral icterus, conjunctival injection, periorbital swelling ENT exam: Present: normal exam, mucous membranes moist Neck exam: Present: normal inspection. Absent: tenderness, meningismus, lymphadenopathy Respiratory exam: Present: normal lung sounds bilaterally. Absent: respiratory distress, wheezes, rales, rhonchi, stridor Cardiovascular Exam: Present: regular rate, normal rhythm, normal heart sounds. Absent: systolic murmur, diastolic murmur, rubs, gallop, clicks Extremities exam: Present: full ROM, tenderness, normal capillary refill, other (Radial pulses 2+, ecchymosis to the distal third digits on both hands). Absent: normal inspection, pedal edema, joint swelling, calf tenderness Back exam: Present: normal inspection Neurological exam: Present: alert, oriented X3 Psychiatric exam: Present: normal affect, normal mood Skin exam: Present: warm, dry, intact, other (Ecchymosis to bilateral distal third digit). Absent: normal color Course Vital Signs 10/14/23 10/14/23 17:08 19:17 Temperature 98.0 F 97.9 F Pulse Rate 77 76 Respiratory 17 16 Rate Blood Pressure 166/124 121/76 O2 Sat by Pulse 99 97 Oximetry Medical Decision Making - Medical Decision Making Quick note preformed by Nevaeh Oneil PA-C Was pt. sent in by a medical professional or institution (, [facility], CAR ST[employer]ER, urgent care, hospital, or shelter...) When possible be specific @ -No Did you speak to anyone other than the patient for history (EMS, parent, family, police, friend...)? What history was obtained from this source @ -No Did you review nursing and triage notes (agree or disagree)? Why? @ -I reviewed and agree with nursing and triage notes Were old charts reviewed (outside hosp., previous admission, EMS record, old EKG, old radiological studies, urgent care reports/EKG's, shelter records)? Report findings @ -No old charts were reviewed Differential Diagnosis (chest pain, altered mental status, abdominal pain women, abdominal pain men, vaginal bleeding, weakness, fever, dyspnea, syncope, headache, dizziness, GI bleed, back pain, seizure, CVA, palpatations, mental health, musculoskeletal)? @ -Differential Musculoskeletal Muscular strain, contusion, ligament sprain, fracture, arthritis, septic arthritis, bursitis, cellulitis, muscle spasm, nerve compression, DVT, arterial occlusion, herpes zoster, electrolyte abnormality, tumor.... This is not meant to be in all inclusive list EKG interpreted by me (3pts min.). @ -None X-rays interpreted by me (1pt min.). @ -X-ray bilateral hand shows no evidence of acute fractures CT interpreted by me (1pt min.). @ -None done U/S interpreted by me (1pt. min.). @ -None done What testing was considered but not performed or refused? (CT, X-rays, U/S, labs)? Why? @ -None What meds were considered but not given or refused? Why? @ -None Did you discuss the management of the patient with other professionals (professionals i.e. , E[facility], CAR STORER, lab, RT, psych nurse, social science instructor, payroll director, teacher, financial compliance officer, vocational case manager)? Give summary @ -No Was smoking cessation discussed for >3mins.? @ -No Was critical care preformed (if so, how long)? @ -No Were there social determinants of health that impacted care today? How? (Homelessness, low income, unemployed, alcoholism, drug addiction, transportation, low edu. Level, literacy, decrease access to med. care, senior living, rehab)? @ -No Was there de-escalation of care discussed even if they declined (Discuss DNR or withdrawal of care, Hospice)? DNR status @ -No What co-morbidities impacted this encounter? (DM, HTN, Smoking, COPD, CAD, Cancer, CVA, ARF, Chemo, Hep., AIDS, mental health diagnosis, sleep apnea, morbid obesity)? @ -None Was patient admitted / discharged? Hospital course, mention meds given and route, prescriptions, significant lab abnormalities, going to OR and other pertinent info. @ -Discharged. She presented to the emergency department for evaluation of bilateral hand injuries. X-rays obtained which showed no acute fracture. Patient has ecchymosis to the distal third digit from bilateral hands. Radial pulses 2+. Patient was placed in a finger splint and advised to follow-up with his primary care provider. Patient stable at discharge. Case discussed with Dr. Lee Undiagnosed new problem with uncertain prognosis? @ -No Drug Therapy requiring intensive monitoring for toxicity (Heparin, Nitro, Insulin, Cardizem)? @ -No Were any procedures done? @ -No Diagnosis/symptom? @ -finger contusion Acute, or Chronic, or Acute on Chronic? @ -acute Uncomplicated (without systemic symptoms) or Complicated (systemic symptoms)? @ -uncomplicated Side effects of treatment? @ -No Exacerbation, Progression, or Severe Exacerbation? @ -No Poses a threat to life or bodily function? How? (Chest pain, [place], [place], pneumonia, PE, COPD, DKA, ARF, appy, cholecystitis, CVA, Diverticulitis, Homicidal, Suicidal, threat to staff... and all critical care pts) @ -No Disposition Clinical Impression: Finger contusion Disposition: HOME SELF-CARE Condition: Stable Instructions (If sedation given, give patient instructions): Hand Sprain (ED) Additional Instructions: Please follow up with your primary care provider. Return to the emergency department for new or worsening symptoms. Is patient prescribed a controlled substance at d/c from ED?: No Referrals: Damian Aguirre MD [Primary Care Provider] - 1-2 days
--- NOTE | 2023-10-14 18:27 | XR ---
EXAMINATION TYPE: XR hand complete bilateral DATE OF EXAM: 10/14/2023 5:22 PM CLINICAL INDICATION:Male, 38 years old with history of pole fell on hands; [facility] COMPARISON: None TECHNIQUE: XR hand complete bilateral Frontal, lateral and oblique views were obtained. FINDINGS: Normal alignment of the visualized joints. No acute osseous pathology is identified. No e vidence of soft tissue swelling. IMPRESSION: No acute osseous pathology.
[2023-10-14 19:39] VITALS: BP 121/76; PULSE 76; RESP 16; TEMP 97.9
== END 2023-10-14 19:22 | disposition home or self-care (01) ==
LOC: EC 16:39
DX: S60.032A Contusion of left middle finger without damage to nail, initial encounter (principal); S60.031A Contusion of right middle finger without damage to nail, initial encounter; I10 Essential (primary) hypertension; F41.9 Anxiety disorder, unspecified; F31.9 Bipolar disorder, unspecified; F17.200 Nicotine dependence, unspecified, uncomplicated; F12.90 Cannabis use, unspecified, uncomplicated; Z79.82 Long term (current) use of aspirin; Z79.899 Other long term (current) drug therapy; Z88.8 Allergy status to other drugs, medicaments and biological substances; W19.XXXA Unspecified fall, initial encounter; Y99.0 Civilian activity done for income or pay
CPT/HCPCS: 99283

== ENCOUNTER 2024-05-01 14:20 | Emergency (ER) | payer BC, OTHER ==
[2024-05-01 14:43] VITALS: TEMP 97.9
--- NOTE | 2024-05-01 15:22 | ED ---
General Adult HPI - General Chief complaint: Abdominal Pain Stated complaint: Abd pain Time Seen by Provider: 05/01/24 15:05 Source: patient, RN notes reviewed Mode of arrival: ambulatory - History of Present Illness Initial comments: 38-year-old male presents to the emergency department for evaluation of lower abdominal pain x4-5 days. He reports that pain is in his bilateral lower abdomen. He admits to constipation, nausea, and decreased appetite. He reports his last bowel movement was 2 days ago. He has been passing flatulence. He admits to taking pepto bismol without any improvement in his symptoms. - Related Data Home Medications Medication Instructions Recorded Confirmed Aspirin EC [Ecotrin Low Dose] 81 mg PO DAILY 11/25/20 01/06/21 FLUoxetine HCL 40 mg PO DAILY@1200 11/25/20 01/06/21 Ibuprofen [Motrin Ib] 600 mg PO Q8H PRN 11/25/20 01/06/21 Labetalol HCl [Trandate] 300 mg PO BID 11/25/20 01/06/21 Ondansetron [Zofran] 4 mg PO BID PRN 11/25/20 01/06/21 QUEtiapine [SEROquel] 50 mg PO HS 11/25/20 01/06/21 hydrALAZINE HCL [Apresoline] 50 mg PO Q8H 11/25/20 01/06/21 hydroCHLOROthiazide [Hydrodiuril] 25 mg PO DAILY 11/25/20 01/06/21 Cholecalciferol (Vitamin D3) 125 mcg PO DAILY 01/06/21 01/06/21 [Vitamin D3 (5000 Iu)] Omeprazole 20 mg PO BID 01/06/21 01/06/21 Previous Rx's Medication Instructions Recorded Topiramate [Topamax] 100 mg PO BID 30 Days #60 tab 08/28/19 amLODIPine [Norvasc] 10 mg PO DAILY 30 Days #30 tab 08/28/19 Acetaminophen [Tylenol] 500 mg PO Q4-6H PRN #20 tab 09/08/19 Albuterol Sulfate [Proair Hfa] 1 - 2 puff INHALATION Q6HR PRN #1 12/21/19 inhaler Sucralfate [Carafate] 1 gm PO BID 14 Days #28 tablet 01/06/21 Docusate [Colace] 100 mg PO BID #10 capsule 05/01/24 Doxycycline [Vibramycin] 100 mg PO BID 10 Days #20 capsule 05/01/24 Allergies Allergy/AdvReac Type Severity Reaction Status Date / Time caffeine AdvReac MAKES Verified 05/01/24 14:43 SEIZURES MORE SEVERE carbamazepine [From Tegretol] AdvReac MAKES Verified 05/01/24 14:43 SEIZURES MORE SEVERE Review of Systems ROS Statement: Those systems with pertinent positive or pertinent negative responses have been documented in the HPI. ROS Other: All systems not noted in ROS Statement are negative. Past Medical History Past Medical History: Hypertension, Seizure Disorder Additional Past Medical History / Comment(s): occipital neuralgia History of Any Multi-Drug Resistant Organisms: MRSA Date of last positivie culture/infection: 2012 MDRO Source:: left leg Past Surgical History: No Surgical Hx Reported Additional Past Surgical History / Comment(s): polyps removed during colonoscopy Past Psychological History: Anxiety, Bipolar, Depression, PTSD, Schizophrenia Smoking Status: Current some day smoker Past Alcohol Use History: None Reported Past Drug Use History: Marijuana - Past Family History Father Family Medical History: Unable to Obtain Mother Additional Family Medical History / Comment(s): schizophrenia, bipolar General Exam Limitations: no limitations General appearance: alert, in no apparent distress Head exam: Present: atraumatic, normocephalic, normal inspection Eye exam: Present: normal appearance, PERRL, EOMI. Absent: scleral icterus, conjunctival injection, periorbital swelling ENT exam: Present: normal exam, mucous membranes moist Respiratory exam: Present: normal lung sounds bilaterally. Absent: respiratory distress, wheezes, rales, rhonchi, stridor Cardiovascular Exam: Present: regular rate, normal rhythm, normal heart sounds. Absent: systolic murmur, diastolic murmur, rubs, gallop, clicks GI/Abdominal exam: Present: soft, tenderness (bilateral lower abdominal), normal bowel sounds. Absent: distended, guarding, rebound, rigid Extremities exam: Present: normal inspection, full ROM, normal capillary refill. Absent: tenderness, pedal edema, joint swelling, calf tenderness Neurological exam: Present: alert, oriented X3 Psychiatric exam: Present: normal affect, normal mood Skin exam: Present: warm, dry, intact, normal color. Absent: rash Course Vital Signs 05/01/24 14:38 Temperature 97.9 F Pulse Rate 70 Respiratory 18 Rate Blood Pressure 114/80 O2 Sat by Pulse 99 Oximetry Medical Decision Making - Medical Decision Making Was pt. sent in by a medical professional or institution (ELDER Hayden, DOCUMENT CONTROL COORDINATOR, urgent care, hospital, or half-way...) When possible be specific @ -[No] Did you speak to anyone other than the patient for history (EMS, parent, family, police, friend...)? What history was obtained from this source @ -[No] Did you review nursing and triage notes (agree or disagree)? Why? @ -[I reviewed and agree with nursing and triage notes] Were old charts reviewed (outside hosp., previous admission, EMS record, old EKG, old radiological studies, urgent care reports/EKG's, half-way records)? Report findings @ -[No old charts were reviewed] Differential Diagnosis (chest pain, altered mental status, abdominal pain women, abdominal pain men, vaginal bleeding, weakness, fever, dyspnea, syncope, headache, dizziness, GI bleed, back pain, seizure, CVA, palpatations, mental health, musculoskeletal)? @ -[Differential Abdominal Pain Men: Appendicitis, cholecystitis, diverticulosis, ischemic bowel, pancreatitis, hepatitis, UTI, gastroenteritis, AAA, incarcerated hernia, bowel obstruction, constipation, inflammatory bowel, hepatitis, peptic ulcer disease, splenic infarction, perforated viscus, testicular torsion, this is not meant to be an all-inclusive list] EKG interpreted by me (3pts min.). @ -[EKG at 1530 shows sinus rhythm rate, VT 182, QRS 100, QT/QTc 388/397 ] X-rays interpreted by me (1pt min.). @ -[None done] CT interpreted by me (1pt min.). @ -[None done] U/S interpreted by me (1pt. min.). @ -[None done] What testing was considered but not performed or refused? (CT, X-rays, U/S, labs )? Why? @ -[None] What meds were considered but not given or refused? Why? @ -[None] Did you discuss the management of the patient with other professionals (professionals i.e. ELDER Hayden, DOCUMENT CONTROL COORDINATOR, lab, RT, psych nurse, social work case manager, service dismantler, teacher, senior loan officer, embedded case manager)? Give summary @ -[No] Was smoking cessation discussed for >3mins.? @ -[No] Was critical care preformed (if so, how long)? @ -[No] Were there social determinants of health that impacted care today? How? (Homelessness, low income, unemployed, alcoholism, drug addiction, transportation, low edu. Level, literacy, decrease access to med. care, penitentiary, rehab)? @ -[No] Was there de-escalation of care discussed even if they declined (Discuss DNR or withdrawal of care, Hospice)? DNR status @ -[No] What co-morbidities impacted this encounter? (DM, HTN, Smoking, COPD, CAD, Cancer, CVA, ARF, Chemo, Hep., AIDS, mental health diagnosis, sleep apnea, morbid obesity)? @ -[None] Was patient admitted / discharged? Hospital course, mention meds given and route, prescriptions, significant lab abnormalities, going to OR and other pert inent info. @ -[hospital course] Undiagnosed new problem with uncertain prognosis? @ -[No] Drug Therapy requiring intensive monitoring for toxicity (Heparin, Nitro, Insulin, Cardizem)? @ -[No] Were any procedures done? @ -[No] Diagnosis/symptom? @ -[default] Acute, or Chronic, or Acute on Chronic? @ -[default] Uncomplicated (without systemic symptoms) or Complicated (systemic symptoms)? @ -[default] Side effects of treatment? @ -[No] Exacerbation, Progression, or Severe Exacerbation? @ -[No] Poses a threat to life or bodily function? How? (Chest pain, USA, MS, pneumonia, PE, COPD, DKA, ARF, appy, cholecystitis, CVA, Diverticulitis, Homicidal, Suicid al, threat to staff... and all critical care pts) @ -[No] - Lab Data Result diagrams: 05/01/24 15:25 05/01/24 15:25 Lab Results 05/01/24 05/01/24 05/01/24 Range/Units 15:25 15:25 15:25 WBC 3.9 (3.8-10.6) k/uL RBC 4.95 (4.30-5.90) m/uL Hgb 13.5 (13.0-17.5) gm/dL Hct 42.1 (39.0-53.0) % MCV 85.0 (80.0-100.0) fL MCH 27.3 (25.0-35.0) pg MCHC 32.1 (31.0-37.0) g/dL RDW 13.7 (11.5-15.5) % Plt Count 235 (150-450) k/uL MPV 8.2 Neutrophils % 44 % Lymphocytes % 43 % Monocytes % 7 % Eosinophils % 4 % Basophils % 0 % Neutrophils # 1.7 (1.3-7.7) k/uL Lymphocytes # 1.7 (1.0-4.8) k/uL Monocytes # 0.3 (0-1.0) k/uL Eosinophils # 0.2 (0-0.7) k/uL Basophils # 0.0 (0-0.2) k/uL Sodium 141 (137-145) mmol/L Potassium 3.6 (3.5-5.1) mmol/L Chloride 109 H (98-107) mmol/L Carbon Dioxide 26 (22-30) mmol/L Anion Gap 6 mmol/L BUN 13 (9-20) mg/dL Creatinine 1.35 H (0.66-1.25) mg/dL Est GFR (CKD-EPI)AfAm 76 (>60 ml/min/1.73 sqM) Est GFR (CKD-EPI)NonAf 66 (>60 ml/min/1.73 sqM) Glucose 90 (74-99) mg/dL Plasma Lactic Acid Lenny (0.7-2.0) mmol/L Calcium 9.3 (8.4-10.2) mg/dL Total Bilirubin 0.5 (0.2-1.3) mg/dL AST 25 (17-59) U/L ALT 36 (4-49) U/L Alkaline Phosphatase 54 (38-126) U/L Total Protein 6.8 (6.3-8.2) g/dL Albumin 4.1 (3.5-5.0) g/dL Amylase 145 H (30-110) U/L Lipase 169 (23-300) U/L Urine Color Light Yellow Urine Appearance Clear (Clear) Urine pH 7.5 (5.0-8.0) Ur Specific [place] 1.031 (1.001-1.035) Urine Protein Negative (Negative) Urine Glucose (UA) Negative (Negative) Urine Ketones Negative (Negative) Urine Blood Negative (Negative) Urine Nitrite Negative (Negative) Urine Bilirubin Negative (Negative) Urine Urobilinogen <2.0 (<2.0) mg/dL Ur Leukocyte Esterase Small H (Negative) Urine WBC 21 H (0-5) /hpf Urine Mucus Rare H (None) /hpf 05/01/24 Range/Units 15:25 WBC (3.8-10.6) k/uL RBC (4.30-5.90) m/uL Hgb (13.0-17.5) gm/dL Hct (39.0-53.0) % MCV (80.0-100.0) fL MCH (25.0-35.0) pg MCHC (31.0-37.0) g/dL RDW (11.5-15.5) % Plt Count (150-450) k/uL MPV Neutrophils % % Lymphocytes % % Monocytes % % Eosinophils % % Basophils % % Neutrophils # (1.3-7.7) k/uL Lymphocytes # (1.0-4.8) k/uL Monocytes # (0-1.0) k/uL Eosinophils # (0-0.7) k/uL Basophils # (0-0.2) k/uL Sodium (137-145) mmol/L Potassium (3.5-5.1) mmol/L Chloride (98-107) mmol/L Carbon Dioxide (22-30) mmol/L Anion Gap mmol/L BUN (9-20) mg/dL Creatinine (0.66-1.25) mg/dL Est GFR (CKD-EPI)AfAm (>60 ml/min/1.73 sqM) Est GFR (CKD-EPI)NonAf (>60 ml/min/1.73 sqM) Glucose (74-99) mg/dL Plasma Lactic Acid Lenny 0.8 (0.7-2.0) mmol/L Calcium (8.4-10.2) mg/dL Total Bilirubin (0.2-1.3) mg/dL AST (17-59) U/L ALT (4-49) U/L Alkaline Phosphatase (38-126) U/L Total Protein (6.3-8.2) g/dL Albumin (3.5-5.0) g/dL Amylase (30-110) U/L Lipase (23-300) U/L Urine Color Urine Appearance (Clear) Urine pH (5.0-8.0) Ur Specific [place] (1.001-1.035) Urine Protein (Negative) Urine Glucose (UA) (Negative) Urine Ketones (Negative) Urine Blood (Negative) Urine Nitrite (Negative) Urine Bilirubin (Negative) Urine Urobilinogen (<2.0) mg/dL Ur Leukocyte Esterase (Negative) Urine WBC (0-5) /hpf Urine Mucus (None) /hpf Disposition Clinical Impression: UTI (urinary tract infection), Concern about STD in male without diagnosis Disposition: HOME SELF-CARE Condition: Stable Instructions (If sedation given, give patient instructions): Urinary Tract Infection in Men (DC) Additional Instructions: Please pickle sorter antibiotic and take to completion. Follow up with your primary care provider. Return to the emergency department for new or worsening symptoms. Prescriptions: Docusate [Colace] 100 mg PO BID #10 capsule RX: Doxycycline [Vibramycin] 100 mg PO BID 10 Days #20 capsule Is patient prescribed a controlled substance at d/c from ED?: No Referrals: Damian Aguirre MD [Primary Care Provider] - 1-2 days
[2024-05-01] MEDS: ONDANSETRON 4 MG/2 ML VIAL IVP STA (15:35)
[2024-05-01] MEDS: KETOROLAC 15 MG/ML 1 ML VIAL IVP STA (15:35)
[2024-05-01] MEDS: SODIUM CHLORIDE 0.9% 1,000 ML IV STA (15:36)
[2024-05-01 15:40] LABS: Basophils % (A) 0 %; Eosinophils # (A) 0.2 k/uL (0-0.7); Eosinophils % (A) 4 %; HCT 42.1 % (39.0-53.0); HGB 13.5 gm/dL (13.0-17.5); Lymphocytes # (A) 1.7 k/uL (1.0-4.8); Lymphocytes % (A) 43 %; MCH 27.3 pg (25.0-35.0); MCHC 32.1 g/dL (31.0-37.0); Mean Platelet Volume 8.2; Monocytes # (A) 0.3 k/uL (0-1.0); Monocytes % (A) 7 %; Neutrophils # (A) 1.7 k/uL (1.3-7.7); Neutrophils % (A) 44 %; Platelet Count 235 k/uL (150-450); RBC 4.95 m/uL (4.30-5.90); RDW 13.7 % (11.5-15.5); WBC 3.9 k/uL (3.8-10.6)
[2024-05-01 15:49] LABS: ALT 36 U/L (4-49); AST 25 U/L (17-59); African American GFR (CKD) 76 (>60 ml/min/1.73 sqM); Albumin 4.1 g/dL (3.5-5.0); Alkaline Phosphatase 54 U/L (38-126); Amylase 145 U/L (30-110); Anion Gap 6 mmol/L; Blood Urea Nitrogen 13 mg/dL (9-20); Calcium 9.3 mg/dL (8.4-10.2); Carbon Dioxide 26 mmol/L (22-30); Chloride 109 mmol/L (98-107); Glucose 90 mg/dL (74-99); Lipase 169 U/L (23-300); Non-African American GFR(CKD) 66 (>60 ml/min/1.73 sqM); Potassium 3.6 mmol/L (3.5-5.1); Sodium 141 mmol/L (137-145); Total Bilirubin 0.5 mg/dL (0.2-1.3); Total Protein 6.8 g/dL (6.3-8.2)
[2024-05-01 16:13] LABS: Appearance,Urine Clear (Clear); Bilirubin,Urine Negative (Negative); Blood,Urine Negative (Negative); Color,Urine Light Yellow; Glucose,Urine (UA) Negative (Negative); Ketones,Urine Negative (Negative); Leukocyte Esterase,Urine Small (Negative); Mucus,Urine Rare /hpf; Nitrite,Urine Negative (Negative); PH, Urine 7.5 (5.0-8.0); Protein,Urine Negative (Negative); Specific Gravity,Urine 1.031 (1.001-1.035); Urobilinogen,Urine <2.0 mg/dL (<2.0); WBC,Urine 21 /hpf (0-5)
--- NOTE | 2024-05-01 16:19 | CT ---
EXAMINATION TYPE: CT abdomen pelvis w con DATE OF EXAM: 05/01/2024 COMPARISON: 01/06/2021 HISTORY: Lower abdominal pain, constipation, and nausea x [address] DLP: 738.7 mGycm Automated exposure control for dose reduction was used. TECHNIQUE: Helical acquisition of images was performed from the lung bases through the pelvis. CONTRAST: Performed without Oral Contrast and with IV Contrast, patient injected with 100ml mL of Isovue 300. FINDINGS: The lung bases are clear. The gallbladder is normal without distention, wall thickening, pericholecystic fluid or gallstones. T here is no biliary ductal dilatation. There is no focal mass or organomegaly involving the liver, pancreas, spleen or adrenal glands. There is no solid renal mass or hydronephrosis and there is homogeneous contrast enhancement of the r enal parenchyma. The caliber the abdominal aorta is normal is no retroperitoneal adenopathy or hemorr luis. The bowel loops are normal in caliber and there is no evidence of dilatation or obstruction. No infla mmatory changes are identified in the bowel wall or mesentery. There is no free intraperitoneal air or fluid. No pelvic mass, free fluid, abscess or adenopathy. The osseous structures and soft tissues are intact. IMPRESSION: No significant abnormality seen.
[2024-05-01] MEDS: DOXYCYCLINE 100 MG CAP PO STA (17:50)
[2024-05-01] MEDS: cefTRIAXone IN SWFI 1,000 MG/10 ML SYRINGE IVP STA (17:51)
[2024-05-01 18:00] VITALS: BP 116/77; PULSE 82; RESP 16
[2024-05-02 13:05] LABS: N. gonorrhoeae,PCR Negative (Negative)
[2024-05-02 13:20] LABS: C. trachomatis,PCR Positive (Negative)
== END 2024-05-01 18:00 | disposition home or self-care (01) ==
LOC: EEVIPCON 14:20 → EC 14:20
DX: N39.0 Urinary tract infection, site not specified (principal); A64 Unspecified sexually transmitted disease; F17.200 Nicotine dependence, unspecified, uncomplicated; Z88.8 Allergy status to other drugs, medicaments and biological substances
CPT/HCPCS: 99284; 36415; 93005; 80053; 82150; 83605; 83690; 85025; 81001; 87491; 87591; 74177; 96374; 96375 ×2; 96361; J2405; J0696; J1885; Q9967; 87086

== ENCOUNTER → 2025-02-01 | Outpatient (CLI) | payer BC, OTHER ==
[2025-02-01 16:39] VITALS: BP 122/81; PULSE 68; RESP 16; TEMP 98.5
--- NOTE | 2025-02-01 17:09 | P.SLEEP ---
History of Present Illness DATE: 02/01/2025 CONSULTATION/NEW PATIENT EVALUATION HISTORY OF PRESENT ILLNESS/SLEEP-WAKE EVALUATION: 69-year-old gentleman had b een evaluated in the sleep center for possible obstructive sleep apnea hypopnea syndrome. SLEEP SCHEDULE: Usually sleep schedule from 11 PM to 5 AM. FALLING ASLEEP: Patient has problems with falling asleep. DURING SLEEP: Patient snores, has episodes of stop breathing during the sleep, wakes up from sleep several times with several episodes of nocturia. Positive history of dry mouth, panic attacks heartburn, gasping for air. No history of hypnogogical hallucinations, sleep paralysis, or cataplexy. DURING THE DAY/WAKE STATE: In the morning patient wake up tired, has difficulties to quit tension, has problems with memory, concentration, irritability, depression, anxiety. [place] sleepiness scale is is significantly increased to 12. Patient takes up to 3 naps during the day. PAST MEDICAL HISTORY: Hypertension, epilepsy, asthma. PAST SURGICAL HISTORY: Hernia repair. MEDICATIONS: Metoprolol, clonidine, amlodipine, pregabalin, Topamax, amlodipine, albuterol inhaler, aspirin. SOCIAL HISTORY: Please see below. FAMILY HISTORY: Please see below. REVIEW OF SYSTEMS: Snoring, multiple awakenings from sleep, sleepiness during the day. No fevers. No double vision. No recent chest pain. No shortness of breath. No abdominal pain. No bleeding episodes. No blood in urine. No seizure episodes. PHYSICAL EXAMINATION: GENERAL: A pleasant patient without any distress. VITAL SIGNS: Please see below, weight 183 pounds, BMI 27.8. HEENT: PERRLA, EOMI. Evaluation of oropharynx showed tongue protrudes midline, low position of soft palate Mallampati 3. NECK: Supple. No JVD. Thyroid is not palpable. 15-3/4 inches in circumference. LUNGS: Clear to percussion and to auscultation. Good air exchange. No wheezing or rhonchi. HEART: S1, S2 regular. No murmurs, gallops or rubs. ABDOMEN: Soft and nontender. Bowel sounds are present. No organomegaly appreciated. EXTREMITIES: No clubbing or cyanosis. AIRLINE CAPTAIN: Awake, alert, and oriented x3. Cranial nerves 2 to 7 intact. There is no f asciculation or atrophy noted. No focal deficits observed. ASSESSMENT: 1. Snoring, multiple awakenings from sleep, small oropharyngeal airspace low position of soft palate Mallampati 3, sleepiness during the day with [place] Sleepiness Scale increased to 12. Obstructive sleep apnea hypopnea syndrome. 2. Hypertension. 3. History of epilepsy, last episode of seizures about 2 years ago according to patient. 4. Asthma. 5 status post hernia repair. 6 . History of some cancer cells removed from the rectal area at 2020 according to patient. PLAN: 1. Polysomnography for evaluation of patient's breathing during sleep. 2. Following plan after reading sleep study. 3. Preferable position during sleep on the side. 4. No driving if patient feels any sleepiness. Patient is aware of civil and criminal liability for unsafe driving. 5. Sleep hygiene with regular sleep time for at least 7.5-8 hours. 6. Watching weight. Thank you very much for referring this patient for consultation. Sincerely, Italo Molina MD, PhD, FAASM. Diplomat of [place] [employer], Sleep Medicine Board by [place] [employer] [place] [employer] of [facility] [place] cc: Deshaun Bishop MD Past Medical History Past Medical History: Asthma, Hypertension, Seizure Disorder Additional Past Medical History / Comment(s): occipital neuralgia, parkinsons, epilepsy History of Any Multi-Drug Resistant Organisms: MRSA Date of last positivie culture/infection: 2012 MDRO Source:: left leg Past Surgical History: No Surgical Hx Reported Additional Past Surgical History / Comment(s): polyps removed during colonoscopy Past Psychological History: Anxiety, Bipolar, Depression, PTSD, Schizophrenia Smoking Status: Current some day smoker Past Alcohol Use History: None Reported Past Drug Use History: Marijuana - Past Family History Father Family Medical History: Cancer, CVA/TIA, Thyroid Disorder Additional Family Medical History / Comment(s): Emphysema Mother Family Medical History: Cancer, Coronary Artery Disease (CAD), GERD/Reflux, Hyperlipidemia, Osteoarthritis (OA) Additional Family Medical History / Comment(s): schizophrenia, bipolar, ulcers, anemia Medications and Allergies Home Medications Medication Instructions Recorded Confirmed Type Topiramate [Topamax] 100 mg PO BID 30 Days #60 tab 08/28/19 01/06/21 Rx amLODIPine [Norvasc] 10 mg PO DAILY 30 Days #30 tab 08/28/19 01/06/21 Rx Acetaminophen [Tylenol] 500 mg PO Q4-6H PRN #20 tab 09/08/19 01/06/21 Rx Albuterol Sulfate [Proair Hfa] 1 - 2 puff INHALATION Q6HR PRN #1 12/21/19 01/06/21 Rx inhaler Aspirin EC [Ecotrin Low Dose] 81 mg PO DAILY 11/25/20 01/06/21 History FLUoxetine HCL 40 mg PO DAILY@1200 11/25/20 01/06/21 History Ibuprofen [Motrin Ib] 600 mg PO Q8H PRN 11/25/20 01/06/21 History Labetalol HCl [Trandate] 300 mg PO BID 11/25/20 01/06/21 History Ondansetron [Zofran] 4 mg PO BID PRN 11/25/20 01/06/21 History QUEtiapine [SEROquel] 50 mg PO HS 11/25/20 01/06/21 History hydrALAZINE HCL [Apresoline] 50 mg PO Q8H 11/25/20 01/06/21 History hydroCHLOROthiazide [Hydrodiuril] 25 mg PO DAILY 11/25/20 01/06/21 History Cholecalciferol (Vitamin D3) 125 mcg PO DAILY 01/06/21 01/06/21 History [Vitamin D3 (5000 Iu)] Omeprazole 20 mg PO BID 01/06/21 01/06/21 History Sucralfate [Carafate] 1 gm PO BID 14 Days #28 tablet 01/06/21 Rx Docusate [Colace] 100 mg PO BID #10 capsule 05/01/24 Rx Doxycycline [Vibramycin] 100 mg PO BID 10 Days #20 capsule 05/01/24 Rx Allergies Allergy/AdvReac Type Severity Reaction Status Date / Time caffeine AdvReac MAKES Verified 05/01/24 14:43 SEIZURES MORE SEVERE carbamazepine [From Tegretol] AdvReac MAKES Verified 05/01/24 14:43 SEIZURES MORE SEVERE Physical Exam Vitals: Vital Signs Temp Pulse Resp BP Pulse Ox 02/01/25 16:38 98.5 F 68 16 122/81 99 Intake and Output 02/01/25 02/01/25 02/01/25 06:59 14:59 22:59 Other: Weight 83.007 kg Sleep Note - Sleep Data ESS Total: 12 - Sleep Note Sleep Note: Temperature: 98.5 F Pulse Rate: 68 Respiratory Rate: 16 Blood Pressure: 122/81 SpO2: 99 Height: 5 ft 8 in Weight: 83.007 kg BMI: Neck Circumference: 15.7
== END ==
LOC: 3 N SLEEP 15:04
PROVIDERS: ATTEND Internal Medicine
DX: G47.33 Obstructive sleep apnea (adult) (pediatric) (principal); I10 Essential (primary) hypertension; G40.909 Epilepsy, unspecified, not intractable, without status epilepticus; J45.909 Unspecified asthma, uncomplicated; F17.200 Nicotine dependence, unspecified, uncomplicated; Z98.890 Other specified postprocedural states; Z85.048 Personal history of other malignant neoplasm of rectum, rectosigmoid junction, and anus; Z88.8 Allergy status to other drugs, medicaments and biological substances
CPT/HCPCS: 99211